=== PATIENT | male | born 1950 | race Caucasian/White ===

== ENCOUNTER → 2016-04-09 | Outpatient (CLI) | payer BC, OTHER ==
[~2016-04-09] MED LIST: ALL300 PO; AMLO-110 PO; ATOR10TA88 PO; CIPR-255 PO; FLUC200T PO; GABA-113 PO; HYDC25 PO; HYDR-3714 PO; LISI40TA PO; MELO7.5T5 PO; MULT-506 PO; PHEN-775 PO; POTA4.25 PO; TAMS0.4C38 PO; TIMO0.5S2 OPB; TRAM-10 PO
== END | disposition home or self-care (01) ==
LOC: C.RDSM 07:39
PROVIDERS: ATTEND Physical Medicine & Rehabilitation Sports Medicine
DX: M25.559 Pain in unspecified hip (principal)

== ENCOUNTER 2016-05-31 10:04 | Day surgery (SDC) | payer BC, OTHER ==
[2016-05-14 11:40] VITALS: BMI 40.0
--- NOTE | 2016-05-14 12:19 | PAT Medication Instructions ---
Service Date May 14, 2016. Current Home Medication List Allopurinol (Zyloprim *), 300 MG PO QAM Amlodipine (Norvasc), 5 MG PO QAM Atorvastatin (Lipitor), 10 MG PO QAM Fluconazole (Diflucan), 200 MG PO WK Gabapentin (Neurontin), 300 MG PO BID Hydrochlorothiazide (Hctz *), 25 MG PO QAM Hydrocodon/Acetaminophen 7.5MG/300MG (Vicodin Es (7.5MG/300MG)), 1 TAB PO BID PRN for Pain Lisinopril (Prinivil), 40 MG PO QAM Meloxicam (Mobic), 15 MG PO QAM Multivitamin (Multivitamin), 1 TAB PO QAM Potassium Citrate (Alkalinizer (Potassium Citrate ER), 10 MEQ PO QDD Timolol Gfs 0.5% Oph (Timoptic-Xe 0.5% Oph), 1 DROP OPB QAM Tramadol (Ultram), 50 MG PO Q4 PRN for Pain Medication Instructions For Your Scheduled Surgery - Hold the following medications the morning of surgery: Potassium Citrate (Alkalinizer (Potassium Citrate ER), 10 MEQ PO QDD Multivitamin (Multivitamin), 1 TAB PO QAM Meloxicam (Mobic), 15 MG PO QAM (can continue per surgeon instructions) Lisinopril (Prinivil), 40 MG PO QAM Hydrochlorothiazide (Hctz *), 25 MG PO QAM Fluconazole (Diflucan), 200 MG PO WK (can take after surgery) - Take the following medications the morning of surgery with a sip of water: Tramadol (Ultram), 50 MG PO Q4 PRN for Pain (can take up to four hours prior to surgery if needed) Hydrocodon/Acetaminophen 7.5MG/300MG (Vicodin Es (7.5MG/300MG)), 1 TAB PO BID PRN for Pain (can take up to four hours prior to surgery if needed) Gabapentin (Neurontin), 300 MG PO BID (if needed) Atorvastatin (Lipitor), 10 MG PO QAM Allopurinol (Zyloprim *), 300 MG PO QAM Amlodipine (Norvasc), 5 MG PO QAM Timolol Gfs 0.5% Oph (Timoptic-Xe 0.5% Oph), 1 DROP OPB QAM - Take the following medications as scheduled the night before surgery: Tramadol (Ultram), 50 MG PO Q4 PRN for Pain Hydrocodon/Acetaminophen 7.5MG/300MG (Vicodin Es (7.5MG/300MG)), 1 TAB PO BID PRN for Pain Gabapentin (Neurontin), 300 MG PO BID If you have any questions please call us at [phone] or [phone] ( Cindy) or [phone]
[2016-05-14 12:44] LABS: BASO % 0.5 %; BASO ABS # 0.04 K/uL (0-0.2); COMPLETE YES; EOS % 3.6 %; HEMATOCRIT 47.5 % (42-52); IG% 0.2 %; LYMPH % 30.3 %; LYMPH ABS # 2.49 K/uL (1.2-3.4); MEAN CELL VOLUME 84.2 fL (80-100); MEAN CORPUSCULAR HEMOGLOBIN 30.3 pg (25-34); MEAN PLATELET VOLUME 10.4 fL (7.4-10.4); NEUT % 53.4 %; PLATELET COUNT 240 K/uL (130-400); RED BLOOD COUNT 5.64 M/uL (4.7-6.1); WHITE BLOOD COUNT 8.22 K/uL (4.8-10.8)
[2016-05-14 13:04] LABS: URINE APPEARANCE CLEAR (CLEAR); URINE BILIRUBIN NEG (NEG); URINE COLOR YELLOW; URINE EPITHELIAL CELL AUTO 0-5 /lpf (0-5); URINE NITRITE NEG (NEG); URINE PH 5.5 (4.5-7.5); URINE SPECIFIC GRAVITY 1.011 (1.000-1.030); UROBILINOGEN NEG (NEG)
[2016-05-14 13:04] LABS: BUN/CREATININE RATIO 15.2 (10-20); CALCIUM 9.3 mg/dl (8.5-10.1); CREATININE 0.79 mg/dl (0.60-1.40); POTASSIUM 3.7 mmol/L (3.5-5.1)
[2016-05-14 13:13] LABS: MANUAL MICROSCOPIC REQUIRED? NO; REVIEW REQ? YES
[~2016-05-31] VITALS: Ht 188 cm; Wt 140.0 kg
[~2016-05-31 10:04] MED LIST changes: +ATROPINE SULFATE 0.1 MG/ML 5ML SYR IV PRN; -CIPR-255 PO; +CIPROFLOXACIN / D5W 400 MG IV SCH; +EpHEDrine SULFATE INJ 50 MG/ML AMP IV PRN; +FENTANYL CITRATE INJ 50 MCG/1 ML 2 ML VIAL IV PRN; +LACTATED RINGER'S 1000ML 1,000 ML IV SCH; +ONDANSETRON INJ 2 MG/ML 2 ML VIAL IV PRN; -PHEN-775 PO; -TAMS0.4C38 PO
[2016-05-31 10:18] VITALS: BP 158/88; PULSE 58; TEMP 36.7; O2SAT 95; Ht 188 cm; Wt 140.0 kg
[2016-05-31] MEDS ORDERED: MIDAZOLAM HCL 1 MG/ML 2ML VIAL ONE (12:19)
[2016-05-31] MEDS ORDERED: FENTANYL CITRATE INJ 50 MCG/1 ML 2 ML VIAL ONE ×2 (12:19→12:57)
--- NOTE | 2016-05-31 12:37 | History & Physical Bridge Note ---
H&P Re-Evaluation Bridge Note: I have examined the patient, reviewed the History & Physical and in the interval since the performance of the History & Physical I have noted the following changes of clinical significance: No changes noted
[2016-05-31] MEDS ORDERED: PROPOFOL IV EMULSION 10 MG/ML 20 ML VIAL IV ONE (13:06)
[2016-05-31] MEDS ORDERED: DEXAMETHASONE SOD INJ 4 MG/ML VIAL ONE (13:06)
[2016-05-31] MEDS ORDERED: ONDANSETRON INJ 2 MG/ML 2 ML VIAL ONE (13:06)
[2016-05-31] MEDS ORDERED: LARYING-O-JET KIT (LTA) EXT ONE ×2 (13:06)
[2016-05-31] MEDS ORDERED: LIDOCAINE HCL 2% 2 ML VIAL (20MG/ML) ONE (13:06)
[2016-05-31] MEDS ORDERED: SUCCINYLCHOLINE CHLORIDE 20 MG/ML 10 ML VIAL IV ONE (13:06)
--- NOTE | 2016-05-31 13:36 | [facility] Post Operative Brief Note ---
Immediate Operative Summary Operative Date May 31, 2016. Pre-Operative Diagnosis Bladder Stone Post-Operative Diagnosis Bladder Stone Procedure(s) Performed Laser Cystolithopaxy Surgeon Dr. Sandoval Valderrama Billing And Quality Technician Surgeon(s) None Estimated Blood Loss 5ml Findings Friable stone around brachyRx seed, inflamed bladder neck and prostatic urethra Specimens A. Bladder stone for analysis Cath'd urine for routine C&S Drains 18 fr silicone 10 cc Anesthesia GAET Complication(s) None Disposition Recovery Room / PACU
[2016-05-31] MEDS ORDERED: CIPR-255 PO (13:37)
[2016-05-31] MEDS ORDERED: PHEN-775 PO (13:37)
--- NOTE | 2016-05-31 13:38 | Discharge Instructions ---
Discharge Instructions Date of Service May 31, 2016. Admission Reason for Admission: Bladder Stone Discharge Discharge Diagnosis / Problem: Bladder stone s/p cystolithopaxy Discharge Goals Goal(s): Decrease discomfort, Increase independence, Therapeutic intervention Activity Recommendations Activity Limitations: resume your previous activity Lifting Limitations: gradually increase as tolerated Exercise/Sports Limitations: rest today, gradually increase as tolerated May Resume Sexual Activity: when tolerated Shower/Bathe: no limitations Driving or Machine Use: resume 1 day after discharge . Instructions / Follow-Up Instructions / Follow-Up Resume self-catheterization per previous routine Discharge Diet Recommended Diet: Regular Diet (good fluid intake) Procedures Procedures Performed: Laser Cystolithopaxy Pending Studies Studies pending at discharge: no Medical Emergencies . Who to Call and When: Medical Emergencies: If at any time you feel your situation is an emergency, please call 911 immediately. . Non-Emergent Contact Non-Emergency issues call your: Urologist Call Non-Emergent contact if: you have a fever, temperature is above 101, your pain is not controlled, your pain is worsening, your pain is unusual for you, your pain is concerning you, you have any medication questions . . "Provider Documentation" section prepared by Sandoval Valderrama. VTE Core Measure Inpt VTE Proph given/why not?: SCD's
[2016-05-31] MEDS ORDERED: PHENAZOPYRIDINE HCL 200 MG TAB PO PRN (13:45)
[2016-05-31] MEDS ORDERED: HYDROCODONE/ACETAMOPHEN 5/325MG TAB PO PRN (13:45)
--- NOTE | 2016-05-31 14:11 | Anesthesiology Progress Note ---
Anesthesia Post Op Note Date & Time May 31, 2016 at 14:10 Vital Signs Pain Intensity: 2 Vital Signs Past 12 Hours Date Time Temp Pulse Resp B/P Pulse Ox O2 Delivery O2 Flow Rate FiO2 05/31/16 14:05 36.7 60 19 145/86 94 Room Air 05/31/16 13:55 64 19 144/88 94 Room Air 05/31/16 13:45 65 16 137/82 93 Room Air 05/31/16 13:35 67 16 161/95 99 Mask 10 05/31/16 13:28 36.6 69 11 153/93 98 Mask 10 05/31/16 10:18 36.7 58 18 158/88 95 Room Air Notes Mental Status: alert / awake / arousable, participated in evaluation Pt Amnestic to Procedure: Yes Nausea / Vomiting: adequately controlled Pain: adequately controlled Airway Patency, RR, SpO2: stable & adequate BP & HR: stable & adequate Hydration State: stable & adequate Anesthetic Complications: no major complications apparent
[2016-05-31 14:14] VITALS: BP 154/74; PULSE 55; TEMP 36.5; O2SAT 96
--- NOTE | 2016-05-31 14:14 | OPERATIVE REPORT ---
DATE OF OPERATION: 05/31/2016 PREOPERATIVE DIAGNOSIS: Bladder stone around brachytherapy seeds. POSTOPERATIVE DIAGNOSIS: Same, history of bladder neck contracture. PROCEDURE: Laser cystoscopy, laser cystolitholapaxy. SURGEON: Dr. Sandoval Valderrama. HEATER ROOM HELPER: None. ANESTHESIA: General anesthesia with endotracheal intubation. COMPLICATIONS: None. FINDINGS: No residual stones after completion of the procedure, inflamed bladder neck and prostatic urethral tissue after completion. ESTIMATED BLOOD LOSS: 5 mL. COMPLICATIONS: None. DRAINS LEFT IN PLACE: Include an 18 Mozambican silicone Villalpando catheter to gravity drainage. SPECIMENS SENT TO PATHOLOGY: Stone fragments and brachytherapy seed, urine for culture and sensitivity. BRIEF HISTORY: Mr. Brown is a pleasant 65-year-old male with history of prostate cancer and bladder neck contracture who is here today due to the finding of a bladder stone, the brachytherapy seed at its center. He has been suffering from dysuria and irritative voiding symptoms due to this. He remains on a self catheterization regimen for history of bladder neck contracture. Please see H\T\P for further details. Intravenous antibiotics provided for coverage and SCDs used for DVT prophylaxis. PROCEDURE: The patient was properly identified and brought to the operative suite. After identification and appropriate consent on the chart, general anesthesia with endotracheal intubation was initiated. The patient was prepped and draped in standard fashion for this procedure. multimedia artist-out procedure was followed. A 22.5 Mozambican rigid cystoscope was passed into the bladder under direct visualization. An open area of contracture at the level of the distal prostatic urethra was noted. Open bladder neck with an open prostatic fossa was appreciated but a stone was present within the prostatic urethra within the fossa. The trigone and bladder neck were inflamed and irritated consistent with irritation from the stone. Using a 400 micron laser fiber, the stone was fragmented into smaller pieces until it was able to be grasped using a stent grasper and removed from the bladder. No evidence of bladder injury or other complication was appreciated. After this was complete, bladder was generously flushed and no evidence of any residual intravesical stone was appreciated. Of note, initial aliquot of urine was sent for culture on placement of the scope. Bladder was partially distended and cystoscope was removed. An 18 Mozambican silicone catheter was placed with return of clear irrigant. Ten mL of sterile water were placed in the balloon. Catheter was placed to gravity drainage. Anesthesia was reversed. The patient was transferred to recovery room in stable condition. FOLLOW-UP CARE: The patient will be discharged home with a short course of ciprofloxacin, Pyridium p.r.n. pain. He reports he has Vicodin at home for further discomfort. Will remove the Villalpando prior to discharge home. The patient to resume his prior CIC regimen. The patient is instructed to contact us should he note any fevers, chills, nausea, vomiting or other significant difficulties in the postoperative period. Postoperative appointment is confirmed. I attest to the content of the Intraoperative Record and any orders documented therein. Any exceptions are noted below. JOSIE
[2016-05-31 14:45] VITALS: BP 154/74; PULSE 58; O2SAT 96
[2016-05-31 15:15] VITALS: BP 162/83; PULSE 60; TEMP 36.3; O2SAT 95
== END 2016-05-31 15:44 | disposition home or self-care (01) ==
LOC: C.ACU 10:04
PROVIDERS: ATTEND Urology
DX: N21.0 Calculus in bladder (principal); N32.0 Bladder-neck obstruction; N35.9 Urethral stricture, unspecified; R31.0 Gross hematuria; Z85.46 Personal history of malignant neoplasm of prostate; E78.5 Hyperlipidemia, unspecified; M10.9 Gout, unspecified; I10 Essential (primary) hypertension; M54.16 Radiculopathy, lumbar region; M48.06 Spinal stenosis, lumbar region; E66.9 Obesity, unspecified; D12.6 Benign neoplasm of colon, unspecified

== ENCOUNTER → 2016-09-06 | Outpatient (CLI) | payer BC ==
[~2016-09-06] MED LIST changes: +ALLO300T2 PO; +ATOR10TA82 PO; -ATOR10TA88 PO; -ATROPINE SULFATE 0.1 MG/ML 5ML SYR IV PRN; +CIPR-255 PO; -CIPROFLOXACIN / D5W 400 MG IV SCH; -EpHEDrine SULFATE INJ 50 MG/ML AMP IV PRN; -FENTANYL CITRATE INJ 50 MCG/1 ML 2 ML VIAL IV PRN; +HYDR-5688 PO; +HYDR25TA4 PO; -LACTATED RINGER'S 1000ML 1,000 ML IV SCH; -ONDANSETRON INJ 2 MG/ML 2 ML VIAL IV PRN; +PREDNISONE ACETATE OPR; +TMPXEOPS OPB
[2016-09-06 10:23] LABS: BLOOD UREA NITROGEN 14 mg/dl (7-18); BUN/CREATININE RATIO 14.2 (10-20)
== END | disposition home or self-care (01) ==
LOC: C.LAB1850 09:05
PROVIDERS: ATTEND Urology
DX: Z85.46 Personal history of malignant neoplasm of prostate (principal); Z11.59 Encounter for screening for other viral diseases; R39.198 Other difficulties with micturition

== ENCOUNTER → 2016-09-25 | Outpatient (CLI) | payer BC ==
[~2016-09-25] MED LIST changes: -ALLO300T2 PO; -ATOR10TA82 PO; +ATOR10TA88 PO; -HYDR-5688 PO; -HYDR25TA4 PO; -PREDNISONE ACETATE OPR; -TMPXEOPS OPB
--- NOTE | 2016-09-25 13:25 | DIAGNOSTIC IMAGING REPORT ---
KUB CLINICAL HISTORY: Diminished urinary stream. FINDINGS: 2 AP supine abdominal radiographs are compared to study dated 05/27/2014 and correlated with abdominal CT dated 07/20/2013. There is a nonobstructed abdominal bowel gas pattern. There is no radiographic evidence of nephrolithiasis. Numerous calcified granulomas are seen in the spleen. Pelvic phleboliths are observed and there are brachytherapy seeds in the prostate gland. The skeletal structures are osteopenic. Lumbosacral spondylosis is noted. Advanced arthritic change is seen in the hips. IMPRESSION: 1. There is no radiographic evidence of nephrolithiasis. 2. Brachytherapy seeds are identified in the prostate gland. Electronically signed by: Germain Quintero M.D. 09/25/2016 1:23 PM Dictated Date/Time: 09/25/2016 1:22 PM
== END | disposition home or self-care (01) ==
LOC: C.LAB 13:06
PROVIDERS: ATTEND Urology
DX: R39.198 Other difficulties with micturition (principal); Z85.46 Personal history of malignant neoplasm of prostate

== ENCOUNTER → 2016-10-01 | Outpatient (CLI) | payer BC | END | disposition home or self-care (01) | LOC: C.RDSM 12:35 | PROVIDERS: ATTEND Physical Medicine & Rehabilitation Sports Medicine | DX: M16.0 Bilateral primary osteoarthritis of hip (principal) ==

== ENCOUNTER → 2017-02-04 | Outpatient (CLI) | payer BC ==
[~2017-02-04] MED LIST changes: +ATOR10TA82 PO; -ATOR10TA88 PO
[2017-02-04 16:50] LABS: BASO % 0.7 %; BASO ABS # 0.06 K/uL (0-0.2); COMPLETE YES; IG% 0.4 %; LYMPH % 37.2 %; LYMPH ABS # 3.14 K/uL (1.2-3.4); MEAN CELL VOLUME 86.7 fL (80-100); MEAN CORPUSCULAR HEMOGLOBIN 30.6 pg (25-34); MEAN CORPUSCULAR HGB CONC 35.3 g/dl (32-36); MEAN PLATELET VOLUME 10.2 fL (7.4-10.4); NEUT % 48.7 %; PLATELET COUNT 207 K/uL (130-400); RED BLOOD COUNT 5.65 M/uL (4.7-6.1); WHITE BLOOD COUNT 8.45 K/uL (4.8-10.8)
[2017-02-04 17:35] LABS: ALT/SGPT 31 U/L (12-78); BLOOD UREA NITROGEN 18 mg/dl (7-18); BUN/CREATININE RATIO 22.7 (10-20); CARBON DIOXIDE 27 mmol/L (21-32); CHLORIDE 105 mmol/L (98-107); CHOLESTEROL 117 mg/dl (0-200); CREATININE 0.78 mg/dl (0.60-1.40); GLUCOSE 96 mg/dl (70-99); POTASSIUM 3.5 mmol/L (3.5-5.1); SODIUM 141 mmol/L (136-145); TRIGLYCERIDES 353 mg/dl (0-150); URIC ACID 4.2 mg/dl (2.6-7.2); VERY LOW DENSITY LIPOPROT CALC 71 mg/dl
[2017-02-04 17:46] LABS: ALB/GLOB RATIO 1.1 (0.9-2); ALKALINE PHOSPHATASE 61 U/L (45-117); AST/SGOT 21 U/L (15-37); CHOLESTEROL/HDL RATIO 3.3; HDL CHOLESTEROL 36 mg/dl; LDL CHOLESTEROL CALCULATED 10 mg/dl
== END | disposition home or self-care (01) ==
LOC: C.CPL 15:41
PROVIDERS: ATTEND Surgery
DX: Z01.812 Encounter for preprocedural laboratory examination (principal); I10 Essential (primary) hypertension; M10.9 Gout, unspecified; M48.061 Spinal stenosis, lumbar region without neurogenic claudication; E78.5 Hyperlipidemia, unspecified; K40.90 Unilateral inguinal hernia, without obstruction or gangrene, not specified as recurrent; R94.31 Abnormal electrocardiogram [ECG] [EKG]

== ENCOUNTER → 2017-04-01 | Outpatient (CLI) | payer BC ==
[~2017-04-01] MED LIST changes: -ALL300 PO; +ALLO300T2 PO; -CIPR-255 PO; -FLUC200T PO; -GABA-113 PO; -HYDC25 PO; -HYDR-3714 PO; +HYDR25TA4 PO; +PREDNISONE ACETATE OPR; -TIMO0.5S2 OPB; +TMPXEOPS OPB
--- NOTE | 2017-04-01 11:09 | DIAGNOSTIC IMAGING REPORT ---
KUB CLINICAL HISTORY: I10 [id number] Incomplete emptying of [id number] COMPARISON STUDY: 09/25/2016 FINDINGS: 5 mm calcification overlying lower pole right kidney possibly present on the prior study. Renal and psoas shows otherwise are unremarkable. Nonobstructive bowel pattern. Postprocedural changes consistent with radioactive seed implants to the prosthetic bed unchanged. Nonobstructive bowel pattern. Degenerative osseous changes throughout. IMPRESSION: 1. Unchanging 5 mm calcification lower pole right kidney. 2. Otherwise negative study. 3. Nonobstructive bowel pattern. 4. Stable degenerative changes of the osseous structures throughout. The above report was generated using voice recognition software. It may contain grammatical, syntax or spelling errors. Electronically signed by: Dong Roberts M.D. 04/01/2017 11:07 AM Dictated Date/Time: 04/01/2017 11:03 AM
== END | disposition home or self-care (01) ==
LOC: C.RAD 10:43
PROVIDERS: ATTEND Urology
DX: N20.0 Calculus of kidney (principal); I10 Essential (primary) hypertension; R33.9 Retention of urine, unspecified

== ENCOUNTER → 2017-04-01 | Outpatient (CLI) | payer BC | END | disposition home or self-care (01) | LOC: C.RDSM 09:57 | PROVIDERS: ATTEND Physical Medicine & Rehabilitation Sports Medicine | DX: Z96.653 Presence of artificial knee joint, bilateral (principal); M16.0 Bilateral primary osteoarthritis of hip ==

== ENCOUNTER → 2017-11-05 | Day surgery (SDC) | payer BC ==
[2017-10-29 12:36] VITALS: BMI 38.0
--- NOTE | 2017-10-29 15:23 | PAT Medication Instructions ---
Service Date Oct 29, 2017. Current Home Medication List Allopurinol (Zyloprim), 300 MG PO QAM Amlodipine (Norvasc), 5 MG PO QAM Atorvastatin (Lipitor), 10 MG PO QAM Dorzolamide Hcl (Trusopt Oph), 1 DROPS OPR TID Hydrochlorothiazide (Hctz), 25 MG PO QAM Lisinopril (Prinivil), 40 MG PO QAM Meloxicam (Mobic), 15 MG PO QAM Multivitamin (Multivitamin), 1 TAB PO QAM Potassium Citrate (Alkalinizer (Potassium Citrate ER), 10 MEQ PO BID Timolol Maleate (Timolol Gfs 0.5% (Generic For Timoptic-Xe)), 1 DROP OPB BID Tramadol (Ultram), 50 MG PO UD PRN for Pain Medication Instructions For Your Scheduled Surgery - Check with surgeon for instructions: Meloxicam (Mobic), 15 MG PO QAM - Hold the following medications the morning of surgery: Potassium Citrate (Alkalinizer (Potassium Citrate ER), 10 MEQ PO BID Multivitamin (Multivitamin), 1 TAB PO QAM Hydrochlorothiazide (Hctz), 25 MG PO QAM Lisinopril (Prinivil), 40 MG PO QAM - Take the following medications the morning of surgery with a sip of water: Allopurinol (Zyloprim), 300 MG PO QAM Amlodipine (Norvasc), 5 MG PO QAM Atorvastatin (Lipitor), 10 MG PO QAM Dorzolamide Hcl (Trusopt Oph), 1 DROPS OPR TID Timolol Maleate (Timolol Gfs 0.5% (Generic For Timoptic-Xe)), 1 DROP OPB BID Tramadol (Ultram), 50 MG PO UD PRN for Pain (okay to take up to 4 hours prior to surgery if needed) - Take the following medications as scheduled the night before surgery: Tramadol (Ultram), 50 MG PO UD PRN for Pain (if needed) Potassium Citrate (Alkalinizer (Potassium Citrate ER), 10 MEQ PO BID Timolol Maleate (Timolol Gfs 0.5% (Generic For Timoptic-Xe)), 1 DROP OPB BID Dorzolamide Hcl (Trusopt Oph), 1 DROPS OPR TID If you have any questions please call us at [phone] or [phone] or [phone]
[2017-10-30 11:27] VITALS: BMI 40.0
[2017-10-30 12:23] LABS: CALCIUM 9.6 mg/dl (8.5-10.1); CREATININE 0.92 mg/dl (0.60-1.40)
[2017-10-30 12:24] LABS: BASO % 0.7 %; BASO ABS # 0.06 K/uL (0-0.2); EOS % 3.6 %; EOS ABS # 0.29 K/uL (0-0.5); HEMOGLOBIN 17.2 g/dL (14.0-18.0); IG# 0.03 K/uL (0.00-0.02); LYMPH % 29.5 %; LYMPH ABS # 2.39 K/uL (1.2-3.4); MEAN CELL VOLUME 88.4 fL (80-100); MEAN CORPUSCULAR HEMOGLOBIN 31.7 pg (25-34); MEAN CORPUSCULAR HGB CONC 35.8 g/dl (32-36); MEAN PLATELET VOLUME 10.2 fL (7.4-10.4); MONO ABS # 1.05 K/uL (0.11-0.59); NEUT % 52.8 %; NEUT ABS # 4.28 K/uL (1.4-6.5); PLATELET COUNT 194 K/uL (130-400); RED CELL DISTRIBUTION WIDTH CV 13.9 % (11.5-14.5); RED CELL DISTRIBUTION WIDTH SD 44.5 fL (36.4-46.3)
--- NOTE | 2017-10-30 12:29 | DIAGNOSTIC IMAGING REPORT ---
TWO VIEW CHEST CLINICAL HISTORY: Preoperative examination. FINDINGS: PA and lateral chest radiographs are compared to study dated 08/05/1715. The heart is top normal for projection. The mediastinal contour is within normal limits. A large calcified granuloma in the right midlung is unchanged. Chronic interstitial thickening similar to previous. There is mild bibasilar atelectasis. No airspace consolidation or pleural effusion is identified. There is no pneumothorax. The bony thorax appears intact. Degenerative change is noted in the thoracic spine. IMPRESSION: No active disease in the chest. Electronically signed by: Germain Quintero M.D. 10/30/2017 12:27 PM Dictated Date/Time: 10/30/2017 12:26 PM
--- NOTE | 2017-10-30 12:35 | DIAGNOSTIC IMAGING REPORT ---
KUB HISTORY: Preop. COMPARISON: KUB 04/01/2017. FINDINGS: The bowel gas pattern is unremarkable. There are no dilated loops of small bowel to suggest an obstruction. No change in the 7 mm stone within the lower pole of the right kidney. No ureteral calculi identified. Multiple brachytherapy seeds seen at the prostate gland. There are few pelvic phleboliths, unchanged. Moderate osteoarthritis within the bilateral hips. No left renal calculi. No ureteral calculi. Multiple calcified splenic granulomas. No pneumoperitoneum or pneumatosis. IMPRESSION: Stable 7 mm right renal stone. No ureteral calculi. Electronically signed by: Finn Mcdowell M.D. 10/30/2017 12:33 PM Dictated Date/Time: 10/30/2017 12:31 PM
[~2017-11-05] VITALS: Ht 190.5 cm; Wt 146.1 kg
[~2017-11-05] MED LIST changes: -AMLO-110 PO; +AMLO5TAB3 PO; +ATROPINE SULFATE 0.1 MG/ML 5ML SYR IV PRN; +BELLADONNA/OPIUM SUPP 60 MG SUPP PR ONE; +CIPROFLOXACIN / D5W 400 MG IV SCH; +DEXAMETHASONE SOD INJ 4 MG/ML VIAL ONE; +DORZ2SOL19 OPR; +EpHEDrine SULFATE INJ 50 MG/ML AMP IV PRN; +FENTANYL CITRATE INJ 50 MCG/1 ML 2 ML VIAL IV PRN; +FENTANYL CITRATE INJ 50 MCG/1 ML 2 ML VIAL ONE; +HYDR-3419 PO; +HYDROCODONE/ACETAMIN 5/325MG TAB PO PRN; +KETOROLAC TROMETHAMINE 30 MG/ML VIAL ONE; +LACTATED RINGER'S 1000ML 1,000 ML IV SCH; +LIDOCAINE HCL 2% 2 ML VIAL (20MG/ML) ONE; +MIDAZOLAM HCL 1 MG/ML 2ML VIAL ONE; +ONDANSETRON INJ 2 MG/ML 2 ML VIAL IV PRN; +ONDANSETRON INJ 2 MG/ML 2 ML VIAL ONE; +PHEN-775 PO; +PHENAZOPYRIDINE HCL 200 MG TAB PO PRN; -PREDNISONE ACETATE OPR; +PROPOFOL IV EMULSION 10 MG/ML 20 ML VIAL ONE; +SULF1TAB92 PO
[2017-11-05 07:44] VITALS: BP 155/90; PULSE 51; TEMP 36.7; O2SAT 94; Ht 190.5 cm; Wt 146.1 kg
--- NOTE | 2017-11-05 08:20 | Discharge Instructions ---
Discharge Instructions Date of Service Nov 05, 2017. Admission Reason for Admission: Bladder Stone, Urethral Stricture Discharge Discharge Diagnosis / Problem: Prostatic stenosis with bladder stone Discharge Goals Goal(s): Decrease discomfort, Improve function, Therapeutic intervention Activity Recommendations Activity Limitations: as noted below Lifting Limitations: no more than 25 pounds, gradually increase as tolerated Exercise/Sports Limitations: rest today, gradually increase as tolerated May Resume Sexual Activity: after two weeks Shower/Bathe: tomorrow (no tub bath with pineda in place) . Instructions / Follow-Up Instructions / Follow-Up Follow-up in office as scheduled for removal of pineda and postoperative check. Complete Bactrim Current Hospital Diet Patient's current hospital diet: Discharge Diet Recommended Diet: Regular Diet (good fluid intake) Procedures Procedures Performed: Cystoscopy, extraction of bladder calculus, transurethral incision of prostate with fulguration of prostatic bleeders. Pending Studies Studies pending at discharge: yes List of pending studies: Bladder stone for chemical analysis Medical Emergencies . Who to Call and When: Medical Emergencies: If at any time you feel your situation is an emergency, please call 911 immediately. . Non-Emergent Contact Non-Emergency issues call your: Urologist Call Non-Emergent contact if: you have a fever, temperature is above 101, your pain is not controlled, your pain is worsening, your pain is unusual for you, your pain is concerning you, you have any medication questions . . "Provider Documentation" section prepared by Sandoval Valderrama. . [place] Drug Monitoring Program Search Results: patient reviewed within database, no issues identified (last Rx Feb 2017)
--- NOTE | 2017-11-05 08:49 | [facility] Operative Report ---
Operative Report Operative Date Nov 05, 2017. Pre-Operative Diagnosis Bladder stone & uretheral constricture Post-Operative Diagnosis Bladder stone & uretheral constricture Procedure(s) Performed Cystoscopy; extraction of foreign object, bladder stone; transurethral incision prostate, fulguration of prostatic bleeders. Surgeon Dr. Bright Valderrama Set Illustrator Surgeon(s) none Estimated Blood Loss 5mL Findings Small, mobile stone within the bladder able to be grasped, crushed and removed using stent grasper, recurrent stenotic prostate incised at the 5 and 7 o'clock position. Specimens A: bladder stone for chemical analysis Drains 20 [place]cu[place]orean silicone with 15 cc of sterile water in the balloon Anesthesia Type General Complication(s) none Disposition no Recovery Room / PACU Indications Pleasant 66-year-old male with a history of recurrent symptoms consistent with previous bladder stone found to have stricture bladder stone on office cystoscopy. Please see office note and H&P for further details. Intravenous ciprofloxacin provided for antibiotic coverage today and SCDs used for DVT prophylaxis. Description of Procedure Patient was properly identified and brought into the operative suite after identification of appropriate consent in the chart. General anesthesia with laryngeal mask was initiated and patient was prepped and draped in the standard fashion for this procedure. Full timeout procedure was followed. 22 Ecu[place]orean rigid cystoscope was passed to the bladder and able to be navigated with some tightness through the stenotic area of the prostate. Bladder was surveyed in its entirety demonstrating mild bullous edema with no clear tumors, papillary mucosa are erythematous areas within the bladder. A mobile sub-centimeter bladder stone was identified, large enough to preclude passage through the stenotic area of the prostate. This was grasped and crushed using stent graspers with international sales representative samples being sent for chemical analysis. Bladder was again evaluated and noted to be free of any residual stones or abnormalities. Ureteral orifices were noted to be in the normal anatomic location, effluxing clear urine well removed from the bladder neck. Some bleeding was present from the area of the prostate gland with associated stenosis so decision was made to excise this area. Bipolar resectoscope with Sam knife was introduced with a visual obturator and relaxing incisions were made at the 5 and 7 o'clock position. Fulguration at the level of the prostate was performed using the Sam knife on coagulation settings with improved hemostasis. Bladder was partially distended and resectoscope was removed. 20 [place]cu[place] silicone Villalpando was placed with 15 cc of sterile water in the balloon. Belladonna and opium suppository was provided for additional postoperative analgesia. Anesthesia was reversed and patient was transferred to the recovery room in stable condition. Follow-up instructions: Patient will be discharged home with a Villalpando catheter in place. Outpatient trial of void and follow-up appointments as scheduled. Prescription for Pyridium and Vicodin provided for postoperative analgesia. Patient to include his course of Bactrim as previously prescribed. Patient is to contact us should he note any fevers, chills, nausea, vomiting or other difficulties in the postoperative period. I attest to the content of the Intraoperative Record and any orders documented therein. Any exceptions are noted below.
--- NOTE | 2017-11-05 09:30 | Anesthesiology Progress Note ---
Anesthesia Post Op Note Date & Time Nov 05, 2017 at 09:29 Vital Signs Pain Intensity: 0 Vital Signs Past 12 Hours Date Time Temp Pulse Resp B/P (MAP) Pulse Ox O2 Delivery O2 Flow Rate FiO2 11/05/17 09:25 55 15 159/92 95 Room Air 10 11/05/17 09:15 56 18 157/93 93 Room Air 10 11/05/17 09:05 60 20 175/95 97 Oxymask 10 11/05/17 08:56 36.5 67 15 178/110 95 Oxymask 10 11/05/17 07:44 36.7 51 20 155/90 (111) 94 Room Air Notes Mental Status: alert / awake / arousable, participated in evaluation Pt Amnestic to Procedure: Yes Nausea / Vomiting: adequately controlled Pain: adequately controlled Airway Patency, RR, SpO2: stable & adequate BP & HR: stable & adequate Hydration State: stable & adequate Anesthetic Complications: no major complications apparent
[2017-11-05 10:00] VITALS: BP 156/88; PULSE 52; TEMP 36.4; O2SAT 94
[2017-11-05 10:30] VITALS: BP 162/89; PULSE 57; O2SAT 95
[2017-11-05 10:51] VITALS: BP 166/86; PULSE 58; TEMP 36.5; O2SAT 94
== END | disposition home or self-care (01) ==
LOC: C.ACU 07:10
PROVIDERS: ATTEND Urology
DX: N21.0 Calculus in bladder (principal); N35.9 Urethral stricture, unspecified

== ENCOUNTER 2018-10-30 06:25 | Observation (INO) ==
[2018-10-30] MEDS ORDERED: LIDOCAINE HCL 1% 20 ML VIAL ONE ×2 (07:15→08:17)
[2018-10-30] MEDS ORDERED: MIDAZOLAM HCL 5 MG/ML 1 ML VIAL ONE ×5 (07:44→10:04)
[2018-10-30] MEDS ORDERED: fentaNYL citrate 100 MCG/2 ML VIAL ONE ×5 (07:44→09:49)
--- NOTE | 2018-10-30 07:51 | History & Physical Report ---
Date of Service October 30, 2018 Assessment & Plan (1) Atrial flutter: PLan EPS/ablation. Present on Admission?: No History of Present Illness Chief Complaint: Palpitaitons Primary Care Provider: Zoie Chaney PA-C Patient with a documented history of atrial flutter presents for ablation. Still having occasional and brief episodes of palpitations and high heart rates. Allergies Allergy/AdvReac Type Severity Reaction Status Date / Time oxycodone AdvReac Mild N/V Verified 10/24/18 13:09 benzalkonium chloride AdvReac Unknown REDNESS -- Verified 10/24/18 13:09 PT UNAWARE bimatoprost AdvReac Unknown REDNESS Verified 10/24/18 13:09 Home Medications Home Medications Medication Instructions Recorded Confirmed Type allopurinol 300 mg PO QAM 02/18/18 10/30/18 History amlodipine 5 mg PO QAM 02/18/18 10/30/18 History atorvastatin 10 mg PO QAM 02/18/18 10/30/18 History dorzolamide 1 drp OPR TID 02/18/18 10/30/18 History gabapentin 300 mg PO BID 02/18/18 10/30/18 History hydrochlorothiazide 25 mg PO QAM 02/18/18 10/30/18 History potassium citrate 10 meq PO BID 02/18/18 10/24/18 History timolol 1 drp OPHTHALMIC (EYE) BID 02/18/18 10/24/18 History lisinopril 40 mg tablet 40 mg PO QAM #90 tab 09/10/18 10/24/18 Rx acetaminophen 500 mg tablet 1,000 mg PO TID PRN #90 tab 10/16/18 10/30/18 History apixaban 5 mg tablet 5 mg PO BID 10/16/18 10/30/18 History tramadol 50 mg tablet 50 - 100 mg PO HS PRN #30 tab 10/16/18 10/24/18 Rx timolol 1 drp OPHTHALMIC (EYE) BID 10/30/18 10/30/18 History Past Med/Surg History Medical History Urethral stricture Tubular adenoma of colon Obesity, Class II, BMI 35-39.9 Nephrolithiasis Male stress incontinence Lumbar spinal stenosis Lumbar radiculopathy Incomplete emptying of bladder Hyperglycemia Gout, joint Dyslipidemia Clot retention of urine Cataract Bladder neck contracture Bladder calculus Chronic back pain Degenerative disc disease Glaucoma Gout History of brachytherapy ~2012 FOR PROSTATE CANCER Hyperlipidemia Hypertension Obesity (BMI 35.0-39.9 without comorbidity) Osteoarthritis Prostate cancer Surgical History H/O eye surgery CORNEAL SCRAPING OF RIGHT EYE History of anesthesia reaction UNSUCCESSFUL SPINAL BLOCK FOR KNEE REPLACEMENT SURGERY History of carpal tunnel release RT WRIST. 02/25/2018. MAC no issues. History of cataract surgery History of colonoscopy History of cystoscopy FOR BLADDER NECK SCARRING History of herniorrhaphy INGUINAL (RIGHT) History of repair of rotator cuff RIGHT History of total knee replacement BILATERAL Family History Unknown Cancer Heart disease Hypertension Mother In good health Father In good health Social History Preferred Language: Surinamese Communication Ability: Effective Expanding Machine Operator Required: No Beliefs That Will Affect Care: None Current Living Situation: Spouse Other Information That Helps Us Care for You: No Feels Safe at Home: Yes Safety Concerns: Feels Safe At This Time Smoking Status: Never smoker Second Hand Exposure: No ; Hx Alcohol Use: No Hx Substance Use: No Review of Systems Review of Systems: Per HPI Physical Exam Physical Exam: Alert. Answered questions appropriately Lungs clear. Normal respiratory effort Cadiac: Regular rate. No edema Results & Data Vital Signs (Past 12 Hours) Vital Signs Temp Pulse Resp BP Pulse Ox 10/30/18 06:54 36.8 C 52 L 16 145/84 H 95
--- NOTE | 2018-10-30 07:52 | Pre Anesthesia Assessment ---
Date of Service October 30, 2018 Pre Sedation Assessment Vital Signs Temp Pulse Resp BP Pulse Ox 10/30/18 06:54 36.8 C 52 L 16 145/84 H 95 Cardiovascular + regular rate Respiratory + respiratory effort normal Pre-Sedation Airway Assessment Smoking Status: Never smoker Hx Sleep Apnea: No Short, Thick Neck: No Oral Cavity: + Dentures Mallampati Class: II ASA: ASA3 NPO Status Date of Last Intake of Fluids: 10/29/18 Time of Last Intake of Fluids: 20:00 Date of Last Intake of Solid Food: 10/29/18 Time of Last Intake of Solid Foods: 20:00 Procedure Planning Contraindications for Sedation: none Current Medications Reviewed: Yes Notes The planned sedation has been discussed with the patient. Informed Consent was obtained. I have identified the patient, determined the appropriateness of sedation and have assessed the patient immediately prior to the procedure. All medicine(s) and interventions are by my order.
[2018-10-30] MEDS ORDERED: ISOPROTERENOL HCL 0.2 MG/ML 5 ML AMP IV ONE (08:19)
[2018-10-30] MEDS ORDERED: HEPARIN SOD (PORCINE) 1000 UNIT/ML 10 ML VIAL ONE (08:49)
[2018-10-30] MEDS ORDERED: MoRPHine SULFATE 2 MG/ML CARP IV PRN (10:36)
[2018-10-30] MEDS ORDERED: ACETAMINOPHEN 325 MG TAB PO PRN (10:36)
--- NOTE | 2018-10-30 10:36 | Post Operative Brief Note ---
Cardiology Brief Post Op Date of Surgery October 30, 2018 Pre & Post Diagnosis Operation Date: 10/30/18 08:00 <No data on this case meets the specified criteria> Procedure RIght atrial isthmus ablation. NO inducible atrial flutter. Access via right femoral vein Counseling Case Manager Zachary Ortiz MD Microbiology Coordinator none Estimated Blood Loss 10 Findings See Below Creation of bidirectinal block through the cavo-tricuspid isthmus. No inducible AFL Complications none Disposition Accompanied Patient To Recovery: No Disposition: PCU Overlapping Procedure I was immediately available: during the entire case.
--- NOTE | 2018-10-30 10:36 | Post Anesthesia Assessment ---
Date of Service October 30, 2018 Post Sedation Assessment Vital Signs Temp Pulse Resp BP Pulse Ox 10/30/18 06:54 36.8 C 52 L 16 145/84 H 95 Recovery Score Respiration: Deep Breath/Cough Consciousness: Arouseable (by name) Oxygen Saturation: O2 needed for >90% Post Sedation Plan On clinical assessment, the patient appears to have tolerated the sedation without complications. Patient is recovering as anticipated. Patient will continue to be monitored by nursing and may be discharged when sedation discharge criteria are met per below protocol. Upon Completions of procedure and additional 15 minutes continue every 5 minute vital signs and the P.A.R. score; then discharge to a Phase I or Fast Track to Phase II per the following guidelines: * Discharge Patient to appropriate Phase II area if PAR is 8 or greater or return to pre- procedure baseline. The post - procedure orders will be as directed. * If PAR score is less than 8 or not return to pre-procedure baseline then patient will follow Phase I monitoring till PAR is reached for Phase II. The Phase I may be done in procedure room or may call to secure a Phase I area. * If naloxone or flumazenil are used for reversal, hold in Phase I for continued monitoring from when last reversal dose was given for a minimum of 60 minutes or longer pending the nurse and/or physician discretion of patient condition before discharge to Phase II. Please call the Sedation Physician to re-evaluate and complete post-note for discharge to Phase II area. Do NOT discharge from procedure sedation or Phase 1 until post- sedation evaluation note is complete by procedure /sedation MD Sedation Discharge Instructions to be given to the patient at discharge to home.
--- NOTE | 2018-10-30 16:25 | Procedure Note ---
Procedure Note Date of Service October 30, 2018 Note Procedure performed: Complete electrophysiologic testing including pacing from left atrium via the coronary sinus. Ablation of supraventricular tachycardia, mapping of tachycardia sites using three-dimensional electro anatomical mapping, arrhythmia induction The patient was informed of the risks benefits and alternatives to the intended procedure. He understood such which proceed. He is brought to the electrophysiology suite in a fasting state. Conscious sedation was administered per protocol and the patient was monitored electrocardiographically throughout today's procedure. The right groin was prepped and draped in usual sterile fashion. The right femoral artery was accessed 3 times using modified standard technique. The sheaths were used to facilitate passage of the EP catheters to the respective chambers under fluoroscopic guidance. This included right ventricular, coronary sinus and ablation catheter. The patient's baseline conduction system was characterized. Attempts to induce atrial flutter within performed. Electro anatomical mapping was then performed and ablation performed through the caval tricuspid isthmus. Repeat electrophysiologic testing as well as three-dimensional electroanatomical mapping was performed in order to confirm bidirectional block in the caval tricuspid isthmus. Subsequent to ablation the patient's baseline conduction intervals were again measured. Repeat electrophysiologic testing and arrhythmia induction was then performed on and off isoproterenol prior to conclusion of the case. At the conclusion of the procedure the sheaths and catheters were removed. Hemostasis was achieved at the access sites using manual pressure. Patient tolerated the procedure well there were no immediate complications. Findings: Baseline intracardiac intervals Cycle length in the atrium 1060 milliseconds Cycle length in the ventricle 1072 milliseconds DE interval 206 milliseconds QRS duration 102 milliseconds QT interval 408 milliseconds Corrected QT interval 422 milliseconds AH interval 160 milliseconds HV interval 70 milliseconds Av Wenckebach occurred at 380 milliseconds AV node effective refractory period was 250 milliseconds Ablation: Radiofrequency ablation was carried out and a power limited mode using an irrigated catheter. Lesions were placed in a linear fashion to the cava tricuspid isthmus until bidirectional block was achieved. Subsequent to ablation burst atrial pacing from both the medial and lateral portions of the caval tricuspid isthmus were performed in order to induce any arrhythmia. No in arrhythmia was inducible with the exception of a brief run of atrial fibrillation. Post ablation intervals: Cycling in the atrium 1044 milliseconds Cycling in the ventricle 1040 milliseconds DE interval 212 milliseconds QRS interval 112 milliseconds QT interval 422 milliseconds QT see 412 milliseconds AH interval 112 milliseconds HV interval 60 milliseconds Av Wenckebach 470 milliseconds Conclusions: Slightly prolonged HV interval at baseline the conclusion of the case No evidence assess Re pathway conduction Occasional echo beats with program stimulation from the atrium, but no inducible tachycardia Successful creation of bidirectional block through the caval tricuspid isthmus without inducible atrial flutter Coding
--- NOTE | 2018-11-13 15:41 | Discharge Summary ---
Date of Service November 13, 2018 Admission HPI Per Admitting Provider Patient with a documented history of atrial flutter presents for ablation. Still having occasional and brief episodes of palpitations and high heart rates. Principal Diagnosis 1 Discharge Exam Groin access site without hematoma or bleeding Discharge Data Allergies Allergy/AdvReac Type Severity Reaction Status Date / Time oxycodone AdvReac Mild N/V Verified 10/24/18 13:09 benzalkonium chloride AdvReac Unknown REDNESS -- Verified 10/24/18 13:09 PT UNAWARE bimatoprost AdvReac Unknown REDNESS Verified 10/24/18 13:09 Procedures Performed Operation Date: 10/30/18 08:00 Actual Procedures p EPS + Ablation for SVT Flutter - Sebastian Ortiz MD s 3D Mapping (Carto) - Sebastian Ortiz MD Ordered Studies 10/30/18 07:30 EP Lab Images for PACS ONCE Hospital Course (1) Atrial flutter: PLan EPS/ablation. He arrived. He underwent ablation. He went home. Total Time Total Time Spent Total Time Spent (In Minutes): 2 Discharge Plan Discharge Items Patient Disposition: Home - Self-Care Reason For Visit: Atrial Flutter Discharge Diagnosis: Atrial Flutter Discharge Goals: Therapeutic intervention Activity: Per 'Additional Instructions' section Activity Comment: No lifting greater than 10 pounds or strenuous activity for 5- 7 days Lifting: No more than 10 pounds Bathing: No limitations Driving/Machine Use: Resume 1 day after discharge Non-emergency contact: Evaporator Helper Call non-emergency contact if: you have any medication questions Follow-up/Referrals: Zoie Chaney PA-C [Primary Care Provider] - Diet: Heart Healthy Addtl Provider Instructions: Resume Eliquis tomorrow morning Prescriptions: Continued lisinopril 40 mg tablet 40 mg PO QAM Qty: 90 RF: 3 tramadol 50 mg tablet 50 - 100 mg PO HS PRN (Reason: Pain) Qty: 30 RF: 1 potassium citrate 10 mEq (1,080 mg) tablet extended release 10 meq PO BID 90 Days Qty: 180 RF: 0 Eliquis 5 mg tablet 5 mg PO BID RF: 0 acetaminophen 500 mg tablet 1,000 mg PO TID PRN (Reason: Pain, Mild) Qty: 90 RF: 0 timolol 0.25 % Drops 1 drp OPHTHALMIC (EYE) BID RF: 0 gabapentin 300 mg Capsule 300 mg PO BID RF: 0 atorvastatin 10 mg Tablet 10 mg PO QAM RF: 0 amlodipine 5 mg Tablet 5 mg PO QAM RF: 0 timolol 0.5 % Drops 1 drp OPHTHALMIC (EYE) BID RF: 0 allopurinol 300 mg Tablet 300 mg PO QAM RF: 0 hydrochlorothiazide 25 mg Tablet 25 mg PO QAM RF: 0 dorzolamide 2 % Drops 1 drp OPR TID RF: 0 Stand-Alone Forms: [facility] Discharge Orders: Discharge Order (Routine); Ordered 10/30/18 Ordered By: Sebastian Ortiz Admission Data Admit Date/Time: 10/30/18 09:26 Attending Provider: Sebastian Ortiz Admit Provider: Sebastian Ortiz Primary Care Provider: Zoie Chaney Service: Surgical Services Other Interventions: Discharge Summary Assessment (RN) Last Done: 10/30/18 16:33 DC Date/Time DO NOT enter until pt leaves facility: 10/30/18 17:00
== END 2018-10-30 17:00 | disposition home or self-care (01) ==
LOC: 2S 06:25 → ASU 06:25

== ENCOUNTER 2020-06-01 05:24 | Observation (INO) ==
--- NOTE | 2020-05-06 11:38 | PAT Medication Instructions ---
Medication Instructions Date of Service May 06, 2020 Home Medications Medication Instructions Recorded hydrochlorothiazide 25 mg tablet 25 mg PO QAM #90 tab 05/12/19 allopurinol 300 mg tablet 300 mg PO QAM #90 tab 06/08/19 amlodipine 5 mg tablet 5 mg PO QAM #90 tab 07/14/19 atorvastatin 10 mg tablet 10 mg PO QAM #90 tab 07/14/19 tramadol 50 mg tablet 50 mg PO HS PRN #30 tab 08/20/19 lisinopril 40 mg tablet 40 mg PO QAM #90 tab 09/07/19 gabapentin 300 mg capsule 300 mg PO BID #180 cap 01/18/20 acetaminophen 500 mg tablet 1,000 mg PO TID PRN hydrochlorothiazide 25 mg tablet 25 mg PO QAM allopurinol 300 mg tablet 300 mg PO QAM amlodipine 5 mg tablet 5 mg PO QAM atorvastatin 10 mg tablet 10 mg PO QAM tramadol 50 mg tablet 50 mg PO HS PRN lisinopril 40 mg tablet 40 mg PO QAM gabapentin 300 mg capsule 300 mg PO BID meloxicam 7.5 mg PO QAM dorzolamide-timolol 1 drp OPB BID potassium citrate 1,080 mg PO QAM ASK your surgeon for instructions meloxicam 7.5 mg PO QAM DO NOT take the morning of surgery hydrochlorothiazide 25 mg tablet 25 mg PO QAM lisinopril 40 mg tablet 40 mg PO QAM potassium citrate 1,080 mg PO QAM Take morning of surgery With a small sip of water, OTHERWISE NOTHING TO EAT OR DRINK AFTER MIDNIGHT: acetaminophen 500 mg tablet 1,000 mg PO TID PRN (if needed, may be taken up to four hours before surgery) allopurinol 300 mg tablet 300 mg PO QAM amlodipine 5 mg tablet 5 mg PO QAM atorvastatin 10 mg tablet 10 mg PO QAM gabapentin 300 mg capsule 300 mg PO BID dorzolamide-timolol 1 drp OPB BID Take evening before surgery acetaminophen 500 mg tablet 1,000 mg PO TID PRN (if needed) tramadol 50 mg tablet 50 mg PO HS PRN (if needed) gabapentin 300 mg capsule 300 mg PO BID dorzolamide-timolol 1 drp OPB BID Other Notes If you have any questions please call us at [phone] or [phone] or [phone] or [phone]
--- NOTE | 2020-05-09 10:47 | Anesthesiology Consultation ---
Date of Service May 09, 2020 Assessment & Plan (1) Encounter for pre-operative examination: COVID Status: As of 05/09 assessment, patient denies travel to endemic area, known exposure/sick contacts, or symptoms of COVID19. Patient instructed that they and their household members must follow strict social distancing guidelines, wear a mask in public and avoid travel/events/gatherings for 14 days prior to surgery. Preoperative COVID19 testing to be completed prior to surgery per surgeon's arrangements. Patient made aware to self-isolate as much as possible between COVID testing and surgery. Per 2012 anesthesia record, [address] epidural. Ultimately had GA. Patient recalls very painful experience with attempted epidural placement, and would prefer to have general anesthesia for CATHY. He has discussed this with Dr. Garza. Chart Review Chart Review: Acceptable Risk for Surgery (pending surgeon-ordered pcp clearance 05/26) and Patient seen in Pre Admission Testing Teaching & Discussion Instructed NPO after midnight before surgery, except medications with 15 cc of water. Medication instructions provided according to the PAT guidelines. History Surgery Operation Date: 06/01/20 08:50 Proposed Procedures p Left Total Hip Arthroplasty Dual Mobility - Herrera Garza MD Height/Weight Height: 6 ft 2 in Weight: 146 kg Allergies Allergy/AdvReac Type Severity Reaction Status Date / Time benzalkonium chloride AdvReac Intermediate REDNESS Verified 04/21/20 12:12 bimatoprost AdvReac Intermediate REDNESS Verified 04/21/20 12:12 oxycodone AdvReac Mild N/V Verified 04/21/20 12:12 Medications Home Medications Medication Instructions Recorded Confirmed Last Taken acetaminophen 500 mg tablet 1,000 mg PO TID PRN #90 tab 10/16/18 04/21/20 01/31/20 hydrochlorothiazide 25 mg tablet 25 mg PO QAM #90 tab 05/12/19 04/21/20 01/31/20 allopurinol 300 mg tablet 300 mg PO QAM #90 tab 06/08/19 04/21/20 02/01/20 07:30 amlodipine 5 mg tablet 5 mg PO QAM #90 tab 07/14/19 04/21/20 02/01/20 07:30 atorvastatin 10 mg tablet 10 mg PO QAM #90 tab 07/14/19 04/21/20 02/01/20 07:30 tramadol 50 mg tablet 50 mg PO HS PRN #30 tab 08/20/19 04/21/20 Unknown lisinopril 40 mg tablet 40 mg PO QAM #90 tab 09/07/19 04/21/20 02/01/20 07:30 gabapentin 300 mg capsule 300 mg PO BID #180 cap 01/18/20 04/21/20 02/01/20 07:30 meloxicam 7.5 mg PO QAM 01/21/20 04/21/20 01/31/20 dorzolamide-timolol 1 drp OPB BID 04/21/20 04/21/20 Unknown potassium citrate 1,080 mg PO QAM 04/21/20 04/21/20 Unknown Past Medical History Medical History Dyslipidemia Glaucoma History of prostate cancer Hx of atrial flutter s/p ablation 10/2018 [facility]. Hx of gout Hypertension Kidney stone Lumbar radiculopathy Lumbar spinal stenosis Male stress incontinence Morbid obesity Urethral stricture SELF CATH X 1 PER WEEK (PER PATIENT) PLEASE USE 14G CATHETER IF REQUIRED Exercise / Class Metabolic Activity II 4-5 Yardwork/Stairs/Walk up hill (Denies CP or SOB with 1 FOS) Past Family History Family History Unknown Heart disease Cancer Hypertension Mother In good health Lung cancer Father In good health Other No family history of adverse response to anesthesia Denies family history of Ovarian cancer Prostate cancer Breast cancer Colorectal cancer Past Surgical History Surgical History H/O eye surgery CORNEAL SCRAPING OF RIGHT EYE History of anesthesia reaction UNSUCCESSFUL SPINAL BLOCK FOR KNEE REPLACEMENT SURGERY History of arthroscopy of left knee x2 History of arthroscopy of right knee X 2 History of brachytherapy ~2012 FOR PROSTATE CANCER History of cardiac radiofrequency ablation 2 YEARS AGO (DR. CRAWLEY) History of carpal tunnel release RT WRIST. 02/25/2018. MAC no issues. History of cataract surgery RT/LEFT History of colonoscopy with polypectomy History of cystoscopy FOR BLADDER NECK SCARRING History of herniorrhaphy INGUINAL (RIGHT) History of repair of rotator cuff RIGHT History of total knee replacement BILATERAL Hx of transurethral resection of prostate Past Anesthesia History No Family Hx of Anesthesia Complications FAILED SPINAL AFTER 4 ATTEMPTS WITH PRIOR TKA, PATIENT RECALLS SIGNIFICANT DISCOMFORT. History of PONV No Hx of PONV and No Hx of Motion Sickness Social History Smoking Status: Never smoker Do You Dip or Chew Tobacco: No Hx Alcohol Use: Yes Alcohol type: wine alcohol intake frequency: a few times a week Hx Substance Use: No substance use type: does not use Review of Systems Pt denies any recent chest pain, shortness of breath, cough, fever, URI, or uncontrolled acid reflux. +occasional palpitations Physical Exam Vital Signs BP: 164/96 P: 64bpm SPO2: 97% RA T: 98.2 F R: 16 ENMT Mouth: + dentures (partial upper) and + dental restorations (crowns on upper front and one molar); no chipped teeth and no loose teeth Thyromental Distance: > or= 3.5 Finger Breadths Mallampati Class: I Neck + thick neck; neck extension not limited Respiratory normal respiratory effort, lungs clear to auscultation Cardiovascular RRR, no murmur, no edema Vessels: no carotid bruit Testing Laboratory Results 05/09/20 11:00 05/09/20 11:00 PT 10.6 Seconds (9.0-12.0) 05/09/20 11:00 INR 1.0 (0.9-1.1) 05/09/20 11:00 APTT 27.9 Seconds (21.0-31.0) 05/09/20 11:00 Urine Color Yellow 05/09/20 11:00 Urine Appearance Clear (Clear) 05/09/20 11:00 Urine pH 6.0 (4.5-7.5) 05/09/20 11:00 Ur Specific [place] 1.011 (1.000-1.030) 05/09/20 11:00 Urine Protein Negative (Negative) 05/09/20 11:00 Urine Glucose (UA) Negative (Negative) 05/09/20 11:00 Urine Ketones Negative (Negative) 05/09/20 11:00 Urine Nitrite Negative (Negative) 05/09/20 11:00 Ur Leukocyte Esterase Negative (Negative) 05/09/20 11:00 Blood Type O Negative 05/09/20 11:00 Antibody Screen NEGATIVE 05/09/20 11:00 Electrocardiogram Date: 05/09/20 Findings: + SB @ (58bpm with 1st degree AV block) NSIVCD. No significant change from 10/30/18. Chest X-Ray Date: 05/09/20 Findings: + NAD
--- NOTE | 2020-05-09 11:33 | XRay Report ---
XR chest Pre-admission PA/Lat CLINICAL HISTORY: Preoperative chest COMPARISON STUDY: No previous studies for comparison. FINDINGS: The cardiac and mediastinal contours are normal. There is no evidence of focal pulmonary co nsolidation. There is no evidence of failure. No pleural effusions are visualized.[There is a stable right midlung zone calcified granuloma IMPRESSION: No active disease in the chest. ACT 112: Negative or not required by law. Electronically signed by: Júnior Moore M.D. 05/09/2020 11:31 AM
[2020-05-09 13:58] LABS: Basophils # (auto) 0.05 K/uL (0-0.2); Basophils % (auto) 0.7 %; Eosinophils # (auto) 0.29 K/uL (0-0.5); Eosinophils % (auto) 4.3 %; Hematocrit (blood only) 50.3 % (42-52); Hemoglobin 17.7 g/dL (14.0-18.0); Immature Granulocytes # (auto) 0.03 K/uL (0.00-0.02); Immature Granulocytes % (auto) 0.4 %; Lymphocytes # (auto) 2.13 K/uL (1.2-3.4); Lymphocytes % (auto) 31.4 %; Mean Corpuscular Hemoglobin 31.6 pg (25-34); Mean Corpuscular Hgb Conc 35.2 g/dL (32-36); Mean Corpuscular Volume 89.8 fL (80-100); Mean Platelet Volume 10.6 fL (7.4-10.4); Monocytes # (auto) 0.83 K/uL (0.11-0.59); Monocytes % (auto) 12.2 %; Neutrophils # (auto) 3.45 K/uL (1.4-6.5); Platelet Count 198 K/uL (130-400); RDW Coefficient of Variation 13.9 % (11.5-14.5); RDW Standard Deviation 45.1 fL (36.4-46.3); White Blood Count 6.78 K/uL (4.8-10.8)
[2020-05-09 14:13] LABS: Partial Thromboplastin Ratio 1.1; Partial Thromboplastin Time 27.9 Seconds (21.0-31.0); Prothrombin Time 10.6 Seconds (9.0-12.0)
[2020-05-09 14:38] LABS: Appearance Urine Clear (Clear); Bilirubin Urine Negative (Negative); Blood Urine Negative (Negative); Color Urine Yellow; Glucose Urine UA Negative (Negative); Ketones Urine Negative (Negative); Leukocyte Esterase Urine Negative (Negative); Nitrite Urine Negative (Negative); Protein Urine Negative (Negative); Specific Gravity Urine 1.011 (1.000-1.030); Urobilinogen Urine Negative (Negative)
[2020-05-09 15:15] LABS: BUN Creatinine Ratio 11.5 (10-20); Calcium 9.6 mg/dl (8.5-10.1); Creatinine Clr Calc Pharmacy 112.2 ml/min; Est GFR (African American) 93.8; Est GFR (Non-African American) 80.9
--- NOTE | 2020-05-09 16:31 | Electrocardiogram Report ---
Test Reason : Blood Pressure : / mmHG Vent. Rate : 058 BPM Atrial Rate : 058 BPM P-R Int : 228 ms QRS Dur : 122 ms QT Int : 442 ms P-R-T Axes : 010 080 065 degrees QTc Int : 433 ms Sinus bradycardia with 1st degree A-V block Non-specific intra-ventricular conduction delay Borderline ECG When compared with ECG of 30-OCT-2018 11:39, No significant change was found Confirmed by Zachary Ortiz ([id number]) on 05/09/2020 4:31:01 PM Referred By: Herrera Garza Confirmed By:Julio Ortiz
--- NOTE | 2020-05-10 17:00 | History & Physical Report ---
Date of Service May 10, 2020 Assessment & Plan (1) Degenerative joint disease of left hip: Postoperative prescriptions for Percocet and Coumadin will be provided at discharge from the hospital. Anticipate discharge to home with home health services. The patient will obtain COVID-19 nasal swab testing 1 week prior to surgery. He is aware of the risks associated with COVID-19 and surgery. He is currently asymptomatic of any COVID-19 symptoms. PDMP was checked and there are no concerning findings. He already has access to a walker. He will see his PCP later this week for medical clearance. Preoperative lab work, EKG, and chest x- ray have been ordered. History of Present Illness Chief Complaint: Left hip pain Primary Care Provider: Alpesh Hammond DO This 69-year-old white male presents today for his preoperative history and physical. He is scheduled to undergo a left total hip arthroplasty using dual mobility cup on 06/01/2020. The patient has had a longstanding history of left hip pain. He has tried physical therapy as well as activity modification and oral anti-inflammatories without improvement. He notes restriction in motion of the left hip. Pain is worse with weightbearing and activity. It is affecting his ADLs. He notes occasional night pain in the groin. No numbness or tingling. Preoperative imaging has been obtained. Allergies Allergy/AdvReac Type Severity Reaction Status Date / Time benzalkonium chloride AdvReac Intermediate REDNESS Verified 04/21/20 12:12 bimatoprost AdvReac Intermediate REDNESS Verified 04/21/20 12:12 oxycodone AdvReac Mild N/V Verified 04/21/20 12:12 Home Medications Medication Instructions Recorded Confirmed Type acetaminophen 500 mg tablet 1,000 mg PO TID PRN #90 tab 10/16/18 04/21/20 History hydrochlorothiazide 25 mg tablet 25 mg PO QAM #90 tab 05/12/19 04/21/20 Rx allopurinol 300 mg tablet 300 mg PO QAM #90 tab 06/08/19 04/21/20 Rx amlodipine 5 mg tablet 5 mg PO QAM #90 tab 07/14/19 04/21/20 Rx atorvastatin 10 mg tablet 10 mg PO QAM #90 tab 07/14/19 04/21/20 Rx tramadol 50 mg tablet 50 mg PO HS PRN #30 tab 08/20/19 04/21/20 Rx lisinopril 40 mg tablet 40 mg PO QAM #90 tab 09/07/19 04/21/20 Rx gabapentin 300 mg capsule 300 mg PO BID #180 cap 01/18/20 04/21/20 Rx meloxicam 7.5 mg PO QAM 01/21/20 04/21/20 History dorzolamide-timolol 1 drp OPB BID 04/21/20 04/21/20 History potassium citrate 1,080 mg PO QAM 04/21/20 04/21/20 History Past Med/Surg History Medical History Dyslipidemia Glaucoma History of prostate cancer Hx of atrial flutter s/p ablation 10/2018 [facility]. Hx of gout Hypertension Kidney stone Lumbar radiculopathy Lumbar spinal stenosis Male stress incontinence Morbid obesity Urethral stricture SELF CATH X 1 PER WEEK (PER PATIENT) PLEASE USE 14G CATHETER IF REQUIRED Surgical History H/O eye surgery CORNEAL SCRAPING OF RIGHT EYE History of anesthesia reaction UNSUCCESSFUL SPINAL BLOCK FOR KNEE REPLACEMENT SURGERY History of arthroscopy of left knee x2 History of arthroscopy of right knee X 2 History of brachytherapy ~2012 FOR PROSTATE CANCER History of cardiac radiofrequency ablation 2 YEARS AGO (DR. CRAWLEY) History of carpal tunnel release RT WRIST. 02/25/2018. MAC no issues. History of cataract surgery RT/LEFT History of colonoscopy with polypectomy History of cystoscopy FOR BLADDER NECK SCARRING History of herniorrhaphy INGUINAL (RIGHT) History of repair of rotator cuff RIGHT History of total knee replacement BILATERAL Hx of transurethral resection of prostate Family History Unknown Heart disease Cancer Hypertension Mother In good health Lung cancer Father In good health Other No family history of adverse response to anesthesia Denies family history of Ovarian cancer Prostate cancer Breast cancer Colorectal cancer Social History Smoking Status: Never smoker Second Hand Exposure: No; Do You Dip or Chew Tobacco: No; Hx Alcohol Use: Yes Alcohol type: wine Hx Substance Use: No Preferred Language: Sami Communication Ability: Effective Visual Impairment: No Limitations Hearing Ability: Normal Business Analytics Intern Required: No Beliefs That Will Affect Care: None marital status: Current Living Situation: Spouse current occupational status: retired Feels Safe at Home: Yes Safety Concerns: Feels Safe At This Time Childhood Exposure to Second-Hand Smoke: Yes Diet Comment: regular caffeine: Yes during the past year weight has: remained stable Dental Care, Regularly: Yes Physical Activity Frequency: 3-4 Times per Week Physical Activity Frequency Comment: [employer] 3 timea a week, golf Seatbelt Use: always Sunscreen Use: Yes Assistive Devices: Glasses Assistive Devices Comment: READING GLASSES/UPPER PARTIAL PLATE Review of Systems Review of Systems: All systems reviewed & are unremarkable except as noted in Subjective A total of 10 systems were reviewed. Physical Exam Physical Exam: Vitals: Height 191 cm, weight 147.6 kilograms, BMI 40.5, temp erature 36.9, BP 142/76, pulse 63, O2 sat 97% on room air. General: Well- developed, well-nourished, elderly white male in no acute distress. Sitting in a chair. Alert and oriented. Skin: Warm and dry with good turgor. No rashes or lesions. No ecchymosis or erythema. HEENT: Normocephalic, atraumatic. Eyes: PERRLA, EOMI. Nares and oropharynx exams deferred due to COVID precautions. Heart: RRR, no MGR. Lungs: Clear to auscultation bilaterally, no crackles, rhonchi or wheezing, good air movement. Abdomen: Obese, bowel sounds present x4, soft, nontender. No organomegaly. No masses. Musculoskeletal: Left hip evaluation reveals no obvious asymmetry or deformity. He does have an external rotation contracture. Internal rotation to not quite neutral. External rotation of around 20 degrees before significant onset of pain. Hip flexion to 80 degrees before restriction in pain. No discomfort with palpation over his IT band or greater trochanter. Ambulates with an antalgic gait. Strength is 5/5 for resisted hip flexion as well as abduction and adduction. Neurologic: Gross sensation is intact across both lower extremities by soft touch. Peripheral pulses are 2+. Results & Data Results & Data ([facility]) Diagnostic Findings Radiographic imaging previously obtained shows end-stage DJD of the hips, left greater than right.
[2020-06-01] MEDS ORDERED: LR 500ML BOLUS IV SCH (06:00)
[2020-06-01] MEDS ORDERED: TRANEXAMIC ACID 1,000 MG **IV Pre-op IV SCH (06:00)
[2020-06-01] MEDS ORDERED: ROPIVACAINE 0.5% HCL/PF 150 MG, BUPIVACAINE 0.75% MPF 20 ML, EPINEPHrine 0.15 MG, Ketor... INFIL SCH (06:00)
[2020-06-01] MEDS ORDERED: LR 60ML/HR IV SCH (06:00)
[2020-06-01] MEDS ORDERED: BUPIVACAINE 0.5 % 5 MG/1 ML PF 10ML VIAL ONE (06:18)
--- NOTE | 2020-06-01 06:31 | History & Physical Bridge Note ---
Date of Service June 01, 2020 History & Physical Bridge Note I have examined the patient, reviewed the History & Physical and in the interval since the performance of the History & Physical I have noted the following changes of clinical significance: consent obtained/site verified/covid screen negative.no changes noted
[2020-06-01] MEDS ORDERED: ORTHO JOINT ANESTHETIC ONE (06:32)
[2020-06-01] MEDS ORDERED: fentaNYL citrate 100 MCG/2 ML VIAL ONE ×2 (06:41→08:04)
[2020-06-01] MEDS ORDERED: PROPOFOL IV EMULSION 10 MG/ML 20 ML VIAL IV ONE (06:41)
[2020-06-01] MEDS ORDERED: MIDAZOLAM HCL 1 MG/ML 2ML VIAL ONE (06:41)
[2020-06-01] MEDS ORDERED: LIDOCAINE HCL 2% 2 ML VIAL/AMP(20MG/ML) INFIL ONE (06:41)
[2020-06-01] MEDS ORDERED: ATROPINE SULFATE 0.1 MG/ML 10ML SYR IV PRN (06:42)
[2020-06-01] MEDS ORDERED: ONDANSETRON INJ 2 MG/ML 2 ML VIAL IV PRN ×2 (06:42→10:44)
[2020-06-01] MEDS ORDERED: ePHEDrine sulfate 50 MG/ML AMP IV PRN (06:42)
[2020-06-01] MEDS ORDERED: ONDANSETRON INJ 2 MG/ML 2 ML VIAL ONE (07:31)
[2020-06-01] MEDS ORDERED: ROCURONIUM BROMIDE 10 MG/ML 5 ML VIAL IV ONE ×3 (07:31→08:12)
[2020-06-01] MEDS ORDERED: GLYCOPYRROLATE 0.2 MG/ML VIAL ONE (07:32)
[2020-06-01] MEDS ORDERED: NEOSTIGMINE METHYLSULFATE 5 MG/5 ML SYR ONE (07:32)
--- NOTE | 2020-06-01 09:02 | Post Operative Brief Note ---
Immediate Post Op Note v1 Date of Surgery June 01, 2020 Pre & Post Diagnosis Operation Date: 06/01/20 07:00 Pre-Op Diagnosis: Left Hip Degenerative Joint Disease Post-Op Diagnosis: Left Hip Degenerative Joint Disease I identified the patient and participated in the time-out.: Yes Procedure Operation Date: 06/01/20 07:00 Actual Procedures p Left Total Hip Arthroplasty Dual Mobility, Uncemented(Left) - Herrera Garza MD Surgeon Herrera Garza MD Assistant Mechanic Karrie/greg Estimated Blood Loss 250 Findings Consistent with Post-Op Diagnosis
--- NOTE | 2020-06-01 09:18 | Operative Report ---
Post Operative Report Pre & Post Diagnosis Operation Date: 06/01/20 07:00 Pre-Op Diagnosis: Left Hip Degenerative Joint Disease Post-Op Diagnosis: Left Hip Degenerative Joint Disease I identified the patient and participated in the time-out.: Yes Procedure Operation Date: 06/01/20 07:00 Actual Procedures p Left Total Hip Arthroplasty Dual Mobility, Uncemented(Left) - Herrera Garza MD Surgeon RAFIQ Garza MD Supervisor Dry Cleaning Karrie/greg OCONNELL Estimated Blood Loss 250 Findings Consistent with Post-Op Diagnosis Specimens see operative report Drains none Complications none Disposition Accompanied Patient To Recovery: Yes Disposition: Recovery Room Indications This 69-year-old male presented to the office with complaints of persisting left hip pain. He had tried conservative care measures without improvement. He elected to proceed with surgical intervention after being educated about potential risks and outcomes. Preoperative imaging was obtained. Description of Procedure Patient was taken to the operating room where he was given general anesthesia. He was prepped and draped in the usual sterile fashion. Please see Dr. Garza's operative report for specifics of the procedure. I was present for the entire case from initial patient positioning through final wound closure. Assistance was provided in tissue retraction, hemostasis, trial implant placement, final implant placement, and final wound closure. Patient was taken to the recovery room in satisfactory condition. I attest to the content of the Intraoperative Record and any orders documented therein. Any exceptions are noted below.
[2020-06-01] MEDS: fentaNYL citrate 100 MCG/2 ML VIAL IV PRN ×4 (09:24→09:42)
[2020-06-01] MEDS ORDERED: VANCOMYCIN HCL 2,000 MG in SODIUM CHLORIDE 0.9% 500 ML IV ONE (09:30)
--- NOTE | 2020-06-01 09:49 | XRay Report ---
XR pelvis 1-2V routine CLINICAL HISTORY: S/P L TOTAL HIP ARTHROPLASTY single view AP centered on both hips COMPARISON STUDY: Pelvis 03/07/2020. FINDINGS: Status post a left total hip arthroplasty. The hardware appears intact. No fracture or disl ocation. Skin veda are in place. There is moderate osteoarthritis within the right hip, unchanged. Multiple brachytherapy seeds are again noted at the prostate gland. IMPRESSION: Status post left total hip arthroplasty. No evidence for hardware complication. ACT 112: Negative or not required by law. Electronically signed by: Finn Mcdowell M.D. 06/01/2020 9:47 AM
[2020-06-01] MEDS: HYDROmorphone INJ 1 MG/ML SYRINGE IV PRN ×4 (09:51→10:09)
--- NOTE | 2020-06-01 09:57 | Operative Report (OR) ---
DATE OF OPERATION: 06/01/2020 SURGEON: Herrera Garza MD. CERTIFIED MASTER SAFECRACKER: Karrie. SECOND CERTIFIED MASTER SAFECRACKER: Aldo Yap PA-C. PREOPERATIVE DIAGNOSES: Osteoarthritis with severe contracture of left hip. POSTOPERATIVE DIAGNOSES: Osteoarthritis with severe contracture of left hip. OPERATION PERFORMED: Noncemented left total hip replacement. PERIOPERATIVE SITUATION: Medically cleared male with intractable left hip pain. Only option is hip replacement. He wants to proceed with this. He knows the risks and consequences. Please see consent. DESCRIPTION OF PROCEDURE: The patient was appropriately identified, site verified, consent verified. Antibiotics confirmed as being given. The left lower extremity was prepped and draped in usual routine fashion. Posterior approach to the hip was then made. He is a large man, so an appropriate incision was made. Sharp dissection was carried through the skin and blunt dissection down to the bursa. There was a large bursal sac with bursal stones. These were all excised. The IT band was then split as well as gluteus sravani fascia. The sciatic nerve was identified and protected, and retractors were placed. The short external rotators were then released. Capsule was then identified and T'd and preserved. It was quite contracted. Labrum was excised posteriorly. The hip was then dislocated. The femoral neck resected. Anterior capsule released. Excellent acetabular exposure obtained. Serial reaming carried up to a 60 and a 60 Biomet G7 OsseoTi multi hole cup was then placed. An additional 6.5 x 25 screw was placed with excellent purchase. Trial liner was then seated. The hip was then flexed and internally rotated and the proximal femur prepared with a steel box toe inserter, lateralizing rasp, canal finder, serial broaching up to a size 8. Trial reduction was then carried out with an 8.5 being appropriate. The hip was then dislocated. All trial elements were removed. The wound was irrigated, permanent liner seated, permanent head and stem seated. The hip was then reduced. It was stable in all planes. Leg lengths were within millimeters of equality. The wound was then irrigated and appropriately closed using #2 Vicryl for the fascial layers, 2-0 Vicryl for the subcutaneous layer and stainless steel clips for skin. Subcu was closed in multiple layers using also 2-0 and #2 Vicryl. The skin was closed with veda. Wound was then appropriately dressed. The patient was then transferred to recovery room in satisfactory condition having tolerated the procedure well. ESTIMATED BLOOD LOSS: 250 mL. CRYSTALLOID: Per anesthesia. BONE PATHOLOGY: Pending. DVT prophylaxis per protocol. SUMMARY OF IMPLANTS: Size shell 60 mm Biomet G7 OsseoTi multi hole cup, liner was a 46 dual-mobility cobalt chrome, bearing was 46 mm dual mobility E1, the femoral head was a 28+8.5 ceramic and the screw was a 6.5 x 25. Again, the bearing was a 46 mm dual mobility E1. I attest to the content of the Intraoperative Record and any orders documented therein. Any exception s are noted below.
[2020-06-01] MEDS ORDERED: METOCLOPRAMIDE HCL INJ 5 MG/ML 2 ML VIAL IV PRN (10:44)
[2020-06-01] MEDS ORDERED: TAMSULOSIN HCL 0.4 MG CAP PO PRN (10:44)
[2020-06-01] MEDS ORDERED: diphenhydrAMINE 50 MG/ML VIAL IV PRN (10:44)
[2020-06-01] MEDS ORDERED: oxyCODONE HCL IR 5 MG TAB (IMMEDIATE RELEASE) PO PRN (10:44)
[2020-06-01] MEDS ORDERED: HYDROmorphone INJ 0.5 MG/0.5 ML SYR IV PRN (10:44)
[2020-06-01] MEDS ORDERED: bisacodyL 10 MG SUPP PR PRN (10:44)
[2020-06-01] MEDS ORDERED: ALUMINUM/MAGNESIUM SUSP 30 ML UDC PO PRN (10:44)
[2020-06-01] MEDS ORDERED: NALOXONE HCL 0.4 MG/1 ML VIAL/CARP IV PRN (10:44)
[2020-06-01] MEDS ORDERED: MAGNESIUM HYDROXIDE SUSP 30 ML UDC PO PRN (10:44)
[2020-06-01] MEDS: SODIUM CHLORIDE 0.9% 1000ML 1,000 ML IV SCH ×2 (10:50→23:00)
[2020-06-01] MEDS: KETOROLAC TROMETHAMINE 15 MG/ML VIAL IV SCH ×3 (11:23→23:00)
--- NOTE | 2020-06-01 11:46 | Progress Notes ---
DATE: 06/01/2020 SUBJECTIVE: Postop check status post left total hip replacement. The patient is nauseated. He has received some Reglan, had some Zofran previously. He denies any chest pain, shortness of breath, fever, chills, or headache. OBJECTIVE: Vital signs are stable. He is afebrile. Neurovascular check of femoral sciatic nerve is normal. Wound dressing clean. This was seen before his transfer to the floor. Postop x-ray looks excellent. ASSESSMENT: Postoperative nausea and vomiting, noncardiac. At this point in time, likely morphine driven. We will place scopolamine patch and use p.r.n. Zofran and Reglan. Mobilize when he is ready. JOSIE
--- NOTE | 2020-06-01 11:50 | Discharge Summary (DS) ---
Date of discharge is 06/02/2020 if does well. CHIEF COMPLAINT: Left hip pain. HISTORY OF PRESENT ILLNESS: Underwent elective left total hip replacement. Hospital course has been only complicated by some nausea and vomiting. This is morphine related. Denies any other problems. REVIEW OF SYSTEMS: Reveals no chest pain, shortness of breath, fever, chills, nausea, vomiting or headache. Postop x-rays look excellent. PAST MEDICAL HISTORY: Remarkable for dyslipidemia, glaucoma, prostate cancer, atrial flutter, history of gout, hypertension, kidney stones, lumbar radiculopathy, lumbar stenosis, stress incontinence, morbid obesity, urethral stricture. PAST SURGICAL HISTORY: Remarkable for eye surgery, multiple knee surgeries, carpal tunnel releases, colonoscopy, polypectomy, herniorrhaphies, rotator cuff repair, bilateral knee replacements, transurethral resection of prostate. FAMILY HISTORY: Remarkable for heart disease, cancer, hypertension, lung cancer. SOCIAL HISTORY: Reveals he is . Smokeless tobacco p.r.n. Social alcohol. ASSESSMENT: Status post left total hip replacement. PLAN: Continue with postop care pathway. Treat nausea. Scopolamine patch is ordered.
[2020-06-01] MEDS ORDERED: SCOPOLAMINE 1 MG TDSY TD SCH ×2 (12:30→14:01)
[2020-06-01] MEDS ORDERED: Nursing to Pharmacy Communication SCH (12:45)
[2020-06-01] MEDS: ACETAMINOPHEN 500 MG TAB PO SCH ×2 (14:24→21:15)
[2020-06-01] MEDS: ORTHO WARFARIN NOMOGRAM SCH (14:24)
--- NOTE | 2020-06-01 14:51 | Anesthesiology Progress Note ---
Date of Service June 01, 2020 Anesthesia Post Procedure Vital Signs Vital Signs: Temp Pulse Pulse Resp BP BP Pulse Ox 06/01/20 14:21 84 18 143/87 H 95 06/01/20 14:07 90 130/75 06/01/20 14:05 122/72 97 06/01/20 13:40 36.3 C L 90 18 155/81 H 94 06/01/20 12:40 36.4 C L 79 14 141/83 H 97 06/01/20 11:37 36.3 C L 89 18 159/88 H 97 06/01/20 11:10 36.5 C 66 14 152/84 H 97 06/01/20 10:40 36.4 C L 80 14 150/96 H 96 06/01/20 10:25 36.5 C 73 12 110/71 97 06/01/20 10:15 36.5 C 78 12 108/67 97 06/01/20 10:05 36.5 C 62 15 116/71 95 06/01/20 09:55 77 15 124/88 98 06/01/20 09:45 74 15 134/82 94 06/01/20 09:35 74 18 120/85 95 06/01/20 09:25 76 12 119/79 98 06/01/20 09:19 36.4 C L 79 15 110/75 97 06/01/20 05:52 37.2 C 66 20 147/87 H 96 Pain Intensity Left Hip: Pain Intensity: 4 Transfer of Care Handoff Completed per policy Notes Mental Status: alert / awake / arousable and participated in evaluation Patient Amnestic to Procedure: Yes Nausea / Vomiting: adequately controlled Pain: adequately controlled Airway Patency, RR, SpO2: stable & adequate BP & HR: stable & adequate Hydration State: stable & adequate Anesthetic Complications: no major complications apparent and Pt Satisfied with anesthetic care
[2020-06-01] MEDS ORDERED: TRANEXAMIC ACID / 0.7% NACL 1,000 MG/100 ML BAG IV SCH (15:30)
[2020-06-01] MEDS: ONDANSETRON INJ 2 MG/ML 2 ML VIAL IV PRN (15:31)
[2020-06-01] MEDS: CHECK SCOPOLAMINE PATCH PLACEMENT SCH (15:35)
[2020-06-01] MEDS ORDERED: WARFARIN SOD 5 MG TAB PO ONE (16:00)
[2020-06-01] MEDS: ceFAZolin 2000MG 2,000 MG/15 ML SYR IV SCH ×2 (16:46→23:00)
[2020-06-01] MEDS: FERROUS GLUCONATE 324 MG TAB PO SCH (16:56)
[2020-06-01] MEDS: ASCORBIC ACID 500 MG TAB PO SCH (16:56)
[2020-06-01] MEDS ORDERED: SENNA 8.6 MG TAB PO SCH (21:00)
[2020-06-01] MEDS: DOCUSATE SODIUM 100 MG CAP PO SCH (21:15)
[2020-06-01] MEDS: GABAPENTIN 300 MG CAP PO SCH (21:15)
[2020-06-01] MEDS: DORZOLAMIDE/TIMOLOL 22.3/6.8MG/ML 10 ML BTL OPB SCH (21:16)
[2020-06-02] MEDS: ONDANSETRON INJ 2 MG/ML 2 ML VIAL IV PRN (00:24)
[2020-06-02] MEDS ORDERED: COUGH DROP (SUGAR FREE) LOZ 24 LOZ/1 BOX BUCCAL ONE (00:29)
[2020-06-02] MEDS: CHECK SCOPOLAMINE PATCH PLACEMENT SCH ×2 (00:31→09:47)
[2020-06-02] MEDS: ACETAMINOPHEN 500 MG TAB PO SCH (05:00)
[2020-06-02] MEDS: KETOROLAC TROMETHAMINE 15 MG/ML VIAL IV SCH (05:00)
[2020-06-02 06:48] LABS: Basophils # (auto) 0.03 K/uL (0-0.2); Basophils % (auto) 0.2 %; Hematocrit (blood only) 32.8 % (42-52); Hemoglobin 11.7 g/dL (14.0-18.0); Immature Granulocytes # (auto) 0.03 K/uL (0.00-0.02); Immature Granulocytes % (auto) 0.2 %; Lymphocytes # (auto) 2.01 K/uL (1.2-3.4); Lymphocytes % (auto) 12.6 %; Mean Corpuscular Hemoglobin 31.4 pg (25-34); Mean Corpuscular Hgb Conc 35.7 g/dL (32-36); Mean Corpuscular Volume 87.9 fL (80-100); Mean Platelet Volume 9.5 fL (7.4-10.4); Monocytes # (auto) 2.71 K/uL (0.11-0.59); Platelet Count 206 K/uL (130-400); RDW Coefficient of Variation 14.1 % (11.5-14.5); RDW Standard Deviation 45.3 fL (36.4-46.3); Red Blood Count 3.73 M/uL (4.7-6.1); White Blood Count 15.98 K/uL (4.8-10.8)
[2020-06-02 07:01] LABS: INR 1.2 (0.9-1.1); Prothrombin Time 12.1 Seconds (9.0-12.0)
[2020-06-02 07:15] LABS: BUN Creatinine Ratio 17.5 (10-20); Calcium 8.1 mg/dl (8.5-10.1); Creatinine Clr Calc Pharmacy 108.3 ml/min; Est GFR (African American) 89.2; Potassium 3.7 mmol/L (3.5-5.1)
--- NOTE | 2020-06-02 07:42 | Progress Notes ---
DATE: 06/02/2020 SUBJECTIVE: Postop day #1 status post left total hip replacement. The patient has been a bit sluggish. He has not been out of bed. Needs to get up and move. He denies any shortness of breath, chest pains, fever, chills, nausea, or vomiting. He has done well since the scopolamine patch has been put on. He does note that it was making him dry. He denies any visual issues. OBJECTIVE: Vital signs are stable. He is afebrile. A.m. labs are pending. Hip dressing clean, dry and intact. The femoral sciatic nerve is normal. Calves nontender. Hip located. ASSESSMENT AND PLAN: Bit sluggish after hip replacement. A big man, needs to get up, needs to move, needs to avoid complications from lying in bed. Needs PT and OT JJ this morning and hopefully cleared for discharge later today. Move scopolamine patch if he tolerates breakfast.
[2020-06-02] MEDS ORDERED: dexAMETHasone 10 MG in SYRINGE 0 ML IV SCH (08:00)
--- NOTE | 2020-06-02 08:55 | Orthopedic Progress Note ---
Date of Service June 02, 2020 Assessment & Plan Admission and Anticipated Discharge Date Admission Date: June 01, 2020 Results & Data ([facility]) Vital Signs (Past 12 Hours) Vital Signs Temp Pulse Pulse Resp BP Pulse Ox 06/02/20 07:23 37.2 C 84 18 121/77 90 06/02/20 03:43 37.0 C 91 H 20 109/68 92 06/01/20 23:00 36.9 C 88 18 165/88 H 95
[2020-06-02] MEDS ORDERED: allopurinoL 300 MG TAB PO SCH (09:00)
[2020-06-02] MEDS ORDERED: lisinopril 40 MG TAB PO SCH (09:00)
[2020-06-02] MEDS ORDERED: MULTIVITAMIN TAB PO SCH (09:00)
[2020-06-02] MEDS ORDERED: hydroCHLOROthiazide 25 MG TAB PO SCH (09:00)
[2020-06-02] MEDS ORDERED: amLODIPine BESYLATE 5 MG TAB PO SCH (09:00)
[2020-06-02] MEDS ORDERED: ATORVASTATIN 10 MG TAB PO SCH (09:00)
[2020-06-02] MEDS ORDERED: POTASSIUM CITRATE 10 MEQ TAB PO SCH (09:00)
[2020-06-02] MEDS: ASCORBIC ACID 500 MG TAB PO SCH (09:51)
[2020-06-02] MEDS: FERROUS GLUCONATE 324 MG TAB PO SCH (09:51)
[2020-06-02] MEDS: DOCUSATE SODIUM 100 MG CAP PO SCH (09:52)
[2020-06-02] MEDS: GABAPENTIN 300 MG CAP PO SCH (09:55)
[2020-06-02] MEDS: DORZOLAMIDE/TIMOLOL 22.3/6.8MG/ML 10 ML BTL OPB SCH (09:57)
[2020-06-02] MEDS: ORTHO WARFARIN NOMOGRAM SCH (10:55)
[2020-06-02] MEDS ORDERED: WARFARIN SOD 5 MG TAB PO ONE (11:30)
== END 2020-06-02 13:37 | disposition home health service (06) ==
LOC: ASU 05:24 → 3E 05:24

== ENCOUNTER 2023-01-26 09:02 | Observation (INO) ==
[2023-01-26] MEDS ORDERED: SODIUM CHLORIDE 0.9% 500 ML IV STA (09:36)
[2023-01-26] MEDS ORDERED: traMADol HCL 50 MG TABLET PO STA (09:39)
--- NOTE | 2023-01-26 09:40 | Emergency Department Note ---
Impression & Plan Hematoma ADMIT ED Provider Note HPI: History obtained from patient. The patient is a 72-year-old gentleman with history of atrial flutter who presents emergency department chief complaint of left groin pain and firmness to palpation. Patient is status post Watchman procedure this past Saturday at [facility]. Patient tells me that he developed some pain and firmness in the area of his left groin radiating around the top portion of his left upper leg that is been worsening over about the past 48 hours. Patient denies any chest pain or shortness of breath. Patient is currently on Xarelto and states his last dose was last evening around dinnertime. Patient is otherwise in no acute distress on arrival, he is hemodynamically stable on arrival. ROS: - Per HPI Differential Diagnosis: Hematoma formation with active extravasation, pseudoaneurysm, contusion, amongst other potential pathologies. *Outpatient medications and allergy history reviewed. *Pertinent external medical records reviewed PE: General: Alert HEENT: Normocephalic, trachea midline Eyes: Extraocular eye movement is intact, no scleral erythema Pulmonary: Clear to auscultation bilaterally, no wheezing Cardio: Regular rate and rhythm GI: Abdomen is soft to palpation : No suprapubic tenderness MSK: No evidence of trauma or malformation of the extremities, no edema Skin: No evidence of rash, there is area of contusion to the bilateral groin with firmness to palpation in the posterior and mid aspect of the left upper thigh Neuro: Alert, no focal deficits Psychiatric: Cooperative INDEPENDENT INTERPRETATIONS: cardiac monitor technician: (As interpreted by myself): - An order was placed for continuous cardiac monitoring - Patient was noted to be in sinus rhythm with a rate of 68 Medical Decision Making: Patient presents emergency department with increasing contusion and firmness with pain to the area of the left groin where he was noted to have venipuncture for a Watchman procedure that was done on Saturday at [facility]. Due to the ED the patient is hemodynamically stable. IV was established lab work obtained, patient was placed on cardiac rehabilitation specialist. Lab work shows no leukocytosis, hemoglobin is stable at 13.3, platelet count is 218, CMP does not show any critical findings, CT angiography of the abdomen pelvis with runoff shows possible pseudoaneurysm versus area of extravasation within the left abductor muscle. This finding was discussed with the interpreting radiologist, Dr. Andrew. I then discussed these findings with interventional cardiology, Dr. Lackey, who recommends admission for observation and cessation of the patient's anticoagulation. I also discussed the patient's presentation with the on-call credit and loan collections supervisor at [facility] where the patient had his procedure performed, Dr. Quinn, who is in agreement with this plan. States the patient may require cessation of his anticoagulation for the next 2 to 3 days. Patient is currently hemodynamically stable, hemoglobin is stable, area of active extravasation appears to be small, we will hold off on reversal of Xarelto with Kcentra at this time. I discussed this plan with the patient, he is in agreement for admission for observation. Hospitalist service was consulted for admission, case was discussed with Dr. Garcia, and the patient was placed for admission in stable condition. Consultants/Discussions held with other healthcare providers: -Interventional cardiology, Dr. Lackey -Interventional cardiology at tertiary care facility, Dr. Quinn -Hospitalist, Dr. Garcia Disposition discussion held by myself with: -Patient Diagnosis: 1. Hematoma formation with possible extravasation, on OAC 2. Status post Watchman procedure, postoperative day number 4 Disposition: ADMIT Dong Cid, DO Emergency Medicine Past Med/Surg History Medical History Presence of Watchman left atrial appendage closure device placed 01/22/23 [facility]. History of COVID-19 01/07/22, home test, not hosp; "bad cold in my throat and head," body aches- treated with paxlovid>resolved Degenerative joint disease of left hip Morbid obesity History of prostate cancer Hx of gout Kidney stone hx Hx of atrial flutter s/p ablation 10/2018 [facility]. Follows with Dr. Crawley. History of colon polyps Male stress incontinence Lumbar spinal stenosis Lumbar radiculopathy Dyslipidemia Glaucoma Hypertension Surgical History S/P trigger finger release History of carpal tunnel release Status post implantation of artificial urinary sphincter Hx of cystoscopy w/urethrotomy Hx of elbow surgery cubital tunnel release rt elbow History of left hip replacement (~05/2020) Hx of transurethral resection of prostate History of cardiac radiofrequency ablation 2018 (DR. CRAWLEY) History of arthroscopy of right knee X 2 History of arthroscopy of left knee x2 History of cataract surgery RT/LEFT History of carpal tunnel release RT WRIST. 02/25/2018. MAC no issues. History of anesthesia reaction UNSUCCESSFUL SPINAL BLOCK FOR KNEE REPLACEMENT SURGERY History of repair of rotator cuff RIGHT History of total knee replacement BILATERAL History of herniorrhaphy INGUINAL (RIGHT) History of colonoscopy 01/2020 Repeat 3 yrs History of cystoscopy FOR BLADDER NECK SCARRING History of brachytherapy ~2001 FOR PROSTATE CANCER H/O eye surgery CORNEAL SCRAPING OF RIGHT EYE Family History Unknown No problems noted. Mother Lung cancer Hypertension Father Cancer Heart disease Hypertension Daughter Hypothyroidism Sister Hypothyroidism Other No family history of adverse response to anesthesia Denies family history of Ovarian cancer Prostate cancer Breast cancer Colorectal cancer Social History Smoking Status: Never smoker Second Hand Exposure: Yes (HX GROWING UP); Do You Dip or Chew Tobacco: No; Hx Alcohol Use: Yes Alcohol type: wine Alcohol Intake Frequency: 2-4 x/Month Alcohol Intake Frequency Comment: 1 bottle wine a week Hx Substance Use: No Preferred Language: Macedonian Communication Ability: Effective Visual Impairment: Diminished Hearing Ability: Normal Space Control Supervisor Required: No Beliefs That Will Affect Care: None marital status: Current Living Situation: Spouse current occupational status: retired How many Children do You have: 1 Feels Safe at Home: Yes Childhood Exposure to Second-Hand Smoke: Yes (both parents smoked ) Diet: regular Diet Comment: regular caffeine: Yes (coffee tea and soda ) during the past year weight has: remained stable Dental Care, Regularly: Yes Physical Activity Frequency: 3-4 Times per Week Physical Activity Frequency Comment: [employer] 3 timea a week Seatbelt Use: always Sunscreen Use: No (wears a hat) Do you think of yourself as: straight/heterosexual Assistive Devices: Denture - Upper and Glasses Allergies Allergies Allergy/AdvReac Type Severity Reaction Status Date / Time benzalkonium chloride AdvReac Intermediate REDNESS Verified 01/24/23 15:15 bimatoprost AdvReac Intermediate REDNESS Verified 01/24/23 15:15 oxycodone AdvReac Mild N/V Verified 01/24/23 15:15 Home Meds Home Medications Medication Instructions Recorded Confirmed acetaminophen 500 mg tablet 1,000 mg PO TID PRN Pain, Mild #90 10/16/18 01/26/23 tabs dorzolamide 22.3 mg-timolol 6.8 1 drp OPB BID 04/21/20 01/26/23 mg/mL eye drops vitamin B complex 1 tab PO DAILY 03/24/21 01/26/23 multivitamin 1 tab PO DAILY 01/08/22 01/26/23 allopurinol 300 mg tablet 300 mg PO QAM 06/25/22 01/26/23 rivaroxaban 20 mg tablet (Xarelto) 20 mg PO QPM 06/25/22 01/26/23 fluoride (sodium) 1.1 % dental 1 applic dental DIRECTED 01/26/23 01/26/23 paste (PreviDent 5000 Dry Mouth) Previous Rx's Medication Instructions Recorded atorvastatin 10 mg tablet 10 mg PO QAM #90 tabs 07/06/22 amlodipine 5 mg tablet 5 mg PO QAM #90 tabs 07/24/22 hydrochlorothiazide 25 mg tablet 25 mg PO QAM #90 tabs 07/24/22 lisinopril 40 mg tablet 40 mg PO QAM #90 tabs 09/06/22 tramadol 50 mg tablet 50 mg PO TID PRN Pain #30 tabs 11/15/22 potassium citrate 10 mEq (1,080 1,080 mg PO QAM #90 tabs 11/26/22 mg) tablet,extended release pregabalin 75 mg capsule (Lyrica) 75 mg PO TID #240 caps 01/03/23 peg [id number] [id number] See Rx Instructions PO .COMPLEX #2 01/16/23 178.7-7.3-0.5-1.12-0.9 gram oral mL soln (Suflave) Results & Data (ED) Vital Signs Vital Signs - 24 hr 01/26/23 09:09 01/26/23 09:57 01/26/23 09:57 Temperature 36.8 C Temperature Source Temporal Artery Scan Pulse Rate 73 Pulse Rate [Apical] 68 Respiratory Rate 18 20 Respiratory Effort / Characteristics Non-Labored Non-Labored Respiratory Depth Normal Normal Blood Pressure 141/75 H Blood Pressure [Right Arm] 117/64 Blood Pressure Mean 97 Blood Pressure Mean [Right Arm] 81 Blood Pressure Position Sitting Pulse Oximetry 96 96 98 Oxygen Delivery Method Room Air Room Air Room Air Sepsis Recent Fever Within 48 Hours No Sepsis New/Unexplained Change in Mental Status No Sepsis Action Taken by Nursing No Action Required 01/26/23 10:02 01/26/23 13:02 Temperature Temperature Source Pulse Rate 66 Pulse Rate [Apical] 66 Respiratory Rate 16 Respiratory Effort / Characteristics Respiratory Depth Blood Pressure Blood Pressure [Right Arm] 127/72 Blood Pressure Mean Blood Pressure Mean [Right Arm] 90 Blood Pressure Position Pulse Oximetry 97 Oxygen Delivery Method Sepsis Recent Fever Within 48 Hours Sepsis New/Unexplained Change in Mental Status Sepsis Action Taken by Nursing Laboratory Data 01/26/23 10:01 01/26/23 10:01 Lab Results 01/26/23 01/26/23 01/26/23 Range/Units 09:59 10:01 12:21 WBC 10.04 (4.8-10.8) K/ul RBC 4.32 L (4.70-6.10) M/uL Hgb 13.3 L (14.0-18.0) g/dl Hct 38.9 L (42.0-52.0) % MCV 90.0 (80.0-100.0) fL MCH 30.8 (25.0-34.0) pg MCHC 34.2 (32.0-36.0) g/dL RDW Std Deviation 45.0 (36.4-46.3) fL RDW Coeff of [place] 13.7 (11.5-14.5) % Plt Count 218 (130-400) K/uL MPV 10.9 (9.4-12.4) fL Immature Gran % (Auto) 0.7 % Neut % (Auto) 67.4 % Lymph % (Auto) 14.9 % [place] % (Auto) 14.1 % Eos % (Auto) 2.2 % Baso % (Auto) 0.7 % Neut # (Auto) 6.76 H (1.40-6.50) K/uL Lymph # (Auto) 1.50 (1.20-3.40) K/uL [place] # (Auto) 1.42 H (0.11-0.59) K/uL Eos # (Auto) 0.22 (0.00-0.50) K/uL Baso # (Auto) 0.07 (0.00-0.20) K/uL Immature Gran # (Auto) 0.07 (0.01-0.20) K/uL Sodium 140 (136-145) mmol/L Potassium 3.7 (3.5-5.1) mmol/L Chloride 104 (98-107) mmol/L Carbon Dioxide 30 (21-32) mmol/L Anion Gap 6 (3-11) BUN 15 (6-23) mg/dl Creatinine 0.75 (0.6-1.4) mg/dl Est Cr Clr Drug Dosing 136.9 ml/min Est GFR ( Amer) 107.0 ml/min Est GFR (Non-Af Amer) 92.3 ml/min BUN/Creatinine Ratio 20.0 (10-20) Glucose 101 H (70-99(Fasting)) mg/dl Calcium 9.9 (8.6-10.3) mg/dl Total Bilirubin 1.1 H (0.2-1.0) mg/dl AST 15 (13-39) U/L ALT 11 (7-52) U/L Alkaline Phosphatase 47 (34-104) U/L Total Protein 6.7 (6.0-8.3) gm/dl Albumin 4.0 (3.4-5.0) gm/dl Globulin 2.7 (2.5-4.0) gm/dl Albumin/Globulin Ratio 1.5 (0.9-2) Lipase 24 (11-82) U/L Urine Color Yellow Urine Appearance Clear (Clear) Urine pH 6.5 (4.5-7.5) Ur Specific [place] 1.015 (1.000-1.030) Urine Protein Negative (Negative) Urine Glucose (UA) Negative (Negative) Urine Ketones Negative (Negative) Urine Blood 2+ H (Negative) Urine Nitrite Negative (Negative) Urine Bilirubin Negative (Negative) Urine Urobilinogen Negative (Negative) Ur Leukocyte Esterase Negative (Negative) Urine WBC (Auto) 1-5 (0-5) /hpf Urine RBC (Auto) 10-30 H (0-4) /hpf U Hyaline Cast (Auto) 0 (0-5) /lpf U Epithel Cells (Auto) 0-5 (0-5) /lpf Urine Bacteria (Auto) Negative (Negative) Blood Type O Negative Antibody Screen NEGATIVE Administered Medications Discontinued Medications Sodium Chloride (Nss) 500 mls @ 999 mls/hr IV .Q31M STA Stop: 01/26/23 10:06 Last Infusion: 01/26/23 10:30 Dose: Infused Documented By: JOSE D Admin: 01/26/23 09:53 Dose: 999 mls/hr Documented By: JOSE D Ioversol (Optiray 320 500ml) 114 ml IV ONCE ONE Stop: 01/26/23 11:18 Last Admin: 01/26/23 11:17 Dose: 114 ml Documented By: GARRY Tramadol HCl (Tramadol Hcl 50 Mg Tablet) 50 mg PO NOW STA Stop: 01/26/23 09:40 Last Admin: 01/26/23 09:53 Dose: 50 mg Documented By: JOSE D Imaging Data Radiologist's Impression: Aorta w/Runoff CTA 01/26/23 09:37 CT ANGIOGRAPHY OF THE ABDOMEN AND PELVIS WITH LOWER EXTREMITY RUNOFF CLINICAL HISTORY: Left groin pain s/p Watchman proc Saturday COMPARISON STUDY: CT of the abdomen and pelvis August 29, 2018. Abdominal aortic ultrasound May 14, 2019. TECHNIQUE: Helical axial images of the abdomen and pelvis and both lower extremities were obtained during arterial phase following intravenous injection of 114 cc of Optiray 320 IV. Sagittal and coronal reconstructions were viewed as well as maximal intensity projections on an independent 3-D workstation. Automated exposure control was utilized for the study. A dose lowering technique was utilized adhering to the principles of ALARA. FINDINGS: No pneumatosis, free air or portal venous gas is present. There are calcified granulomas within the liver and spleen, adrenal glands and pancreas are unremarkable. Numerous bilateral renal cysts are noted. These were shown on prior CT. There is an 8 mm right renal calculus. There are no ureteral calculi. There is no hydronephrosis. No evidence for a bowel obstruction. No lymphadenopathy is present. A penile prosthesis is incidentally noted. There are brachytherapy seeds within the prostate. No suspicious lesions within the visualized skeletal structures are present. Left hip and bilateral knee arthroplasties are noted. The caliber of the abdominal aorta is normal. There is moderate plaque within the abdominal aorta. The branch vessels are patent. There is no aneurysm within the abdomen. There is moderate stranding within the left groin, centered on the left adductor muscles. Asymmetric enlargement and hyperdensity within the left adductor muscles represents acute intramuscular hemorrhage. There is an associated tiny 5 mm hyperdense focus on image 438. This could reflect a tiny pseudoaneurysm or arterial active extravasation. It is not clear from which vessel this arises. The left common femoral and superficial femoral arteries are patent. The bilateral popliteal arteries are patent. The bilateral calf vessels cannot be assessed on this exam as the scanner outran the bolus. A small amount of stranding within the right groin is also noted. IMPRESSION: 1. Moderate acute intramuscular hemorrhage within the left adductor muscles with small amount of adjacent hemorrhage within the left thigh. Associated 5 mm hyperdense focus which could reflect a tiny pseudoaneurysm or small focus of arterial active extravasation within the left adductor muscles. Stranding within the right groin suggestive of a small amount of hemorrhage. Findings discussed with Dr. Cid at time of dictation. 2. Normal caliber abdominal aorta with moderate atherosclerotic plaque. Patent branch vessels. Calf vessels cannot be assessed on this exam, as described above. 3. 8 mm right renal calculus. No ureteral calculi or hydronephrosis. ACT 112: Negative or not required by law. Electronically signed by: Frantz Andrew M.D. 01/26/2023 12:04 PM Discharge Plan Visit Data Chief Complaint: Swelling/Edema to Extremity Stated Complaint: LEFT LEG SWELLING ED Provider: Dong Cid Discharge Problem: Hematoma Forms Stand Alone Forms: My [facility] Prescriptions Prescriptions: No Action atorvastatin 10 mg tablet 10 mg PO QAM Qty: 90 3RF amlodipine 5 mg tablet 5 mg PO QAM Qty: 90 3RF hydrochlorothiazide 25 mg tablet 25 mg PO QAM Qty: 90 3RF lisinopril 40 mg tablet 40 mg PO QAM Qty: 90 3RF tramadol 50 mg tablet 50 mg PO TID PRN (Reason: Pain) Qty: 30 1RF Patient Comments: maybe 2-3 times per month potassium citrate 10 mEq (1,080 mg) tablet extended release 1,080 mg PO QAM Qty: 90 3RF pregabalin [Lyrica] 75 mg capsule 75 mg PO TID Qty: 240 1RF Suflave 178.7-7.3-0.5 gram recon soln See Rx Instructions PO .COMPLEX Qty: 2 0RF Rx Instructions: orally; TAKE FIRST DOSE AT 6 PM AND SECOND DOSE 6 HOURS PRIOR TO PROCEDURE BIN: [id number] PCN: CN GROUP: [id number] acetaminophen 500 mg tablet 1,000 mg PO TID PRN (Reason: Pain, Mild) Qty: 90 vitamin B complex Tablet 1 tab PO DAILY multivitamin Tablet 1 tab PO DAILY dorzolamide-timolol 22.3-6.8 mg/mL Drops 1 drp OPB BID allopurinol 300 mg tablet 300 mg PO QAM Rx Instructions: TAKE 1 TABLET EVERY MORNING Xarelto 20 mg tablet 20 mg PO QPM Rx Instructions: must administer with evening meal fluoride (sodium) [PreviDent 5000 Dry Mouth] 1.1 % paste 1 applic dental DIRECTED Referrals Referrals: Alpesh Hammond DO [Primary Care Provider] -
[2023-01-26 10:17] LABS: Basophils # (auto) 0.07 K/uL (0.00-0.20); Basophils % (auto) 0.7 %; Eosinophils # (auto) 0.22 K/uL (0.00-0.50); Eosinophils % (auto) 2.2 %; Hematocrit (blood only) 38.9 % (42.0-52.0); Hemoglobin 13.3 g/dl (14.0-18.0); Immature Granulocytes # (auto) 0.07 K/uL (0.01-0.20); Immature Granulocytes % (auto) 0.7 %; Lymphocytes % (auto) 14.9 %; Mean Corpuscular Hemoglobin 30.8 pg (25.0-34.0); Mean Corpuscular Hgb Conc 34.2 g/dL (32.0-36.0); Mean Platelet Volume 10.9 fL (9.4-12.4); Monocytes # (auto) 1.42 K/uL (0.11-0.59); Monocytes % (auto) 14.1 %; Neutrophils # (auto) 6.76 K/uL (1.40-6.50); Neutrophils % (auto) 67.4 %; Platelet Count 218 K/uL (130-400); RDW Coefficient of Variation 13.7 % (11.5-14.5); Red Blood Count 4.32 M/uL (4.70-6.10); White Blood Count 10.04 K/ul (4.8-10.8)
[2023-01-26 10:37] LABS: Albumin Globulin Ratio 1.5 (0.9-2); Bilirubin,Total 1.1 mg/dl (0.2-1.0); Calcium 9.9 mg/dl (8.6-10.3); Creatinine Clr Calc Pharmacy 136.9 ml/min; Est GFR (Non-African American) 92.3 ml/min; Globulin 2.7 gm/dl (2.5-4.0); Potassium 3.7 mmol/L (3.5-5.1); Total Protein 6.7 gm/dl (6.0-8.3)
[2023-01-26] MEDS ORDERED: OPTIRAY 320 500ml IV ONE (11:17)
--- NOTE | 2023-01-26 12:06 | CT Scan Report ---
CT ANGIOGRAPHY OF THE ABDOMEN AND PELVIS WITH LOWER EXTREMITY RUNOFF CLINICAL HISTORY: Left groin pain s/p Watchman proc Saturday COMPARISON STUDY: CT of the abdomen and pelvis August 29, 2018. Abdominal aortic ultrasound April 192019. TECHNIQUE: Helical axial images of the abdomen and pelvis and both lower extremities were obtained du ring arterial phase following intravenous injection of 114 cc of Optiray 320 IV. Sagittal and coronal reconstructions were viewed as well as maximal intensity projections on an independent 3-D workstati on. Automated exposure control was utilized for the study. A dose lowering technique was utilized ad yamile to the principles of ALARA. FINDINGS: No pneumatosis, free air or portal venous gas is present. There are calcified granulomas wi thin the liver and spleen, adrenal glands and pancreas are unremarkable. Numerous bilateral renal cys ts are noted. These were shown on prior CT. There is an 8 mm right renal calculus. There are no urete ral calculi. There is no hydronephrosis. No evidence for a bowel obstruction. No lymphadenopathy is p resent. A penile prosthesis is incidentally noted. There are brachytherapy seeds within the prostate. No suspicious lesions within the visualized skeletal structures are present. Left hip and bilateral knee arthroplasties are noted. The caliber of the abdominal aorta is normal. There is moderate plaque within the abdominal aorta. Th e branch vessels are patent. There is no aneurysm within the abdomen. There is moderate stranding wit hin the left groin, centered on the left adductor muscles. Asymmetric enlargement and hyperdensity wi thin the left adductor muscles represents acute intramuscular hemorrhage. There is an associated tiny 5 mm hyperdense focus on image 438. This could reflect a tiny pseudoaneurysm or arterial active extr avasation. It is not clear from which vessel this arises. The left common femoral and superficial fem oral arteries are patent. The bilateral popliteal arteries are patent. The bilateral calf vessels can not be assessed on this exam as the scanner outran the bolus. A small amount of stranding within the right groin is also noted. IMPRESSION: 1. Moderate acute intramuscular hemorrhage within the left adductor muscles with small amount of yesenia cent hemorrhage within the left thigh. Associated 5 mm hyperdense focus which could reflect a tiny ps eudoaneurysm or small focus of arterial active extravasation within the left adductor muscles. Strand ing within the right groin suggestive of a small amount of hemorrhage. Findings discussed with Dr. Ramu johnson at time of dictation. 2. Normal caliber abdominal aorta with moderate atherosclerotic plaque. Patent branch vessels. Calf v essels cannot be assessed on this exam, as described above. 3. 8 mm right renal calculus. No ureteral calculi or hydronephrosis. ACT 112: Negative or not required by law. Electronically signed by: Frantz Andrew M.D. 01/26/2023 12:04 PM
[2023-01-26 12:41] LABS: Appearance Urine Clear (Clear); Bacteria Urine Automated Negative (Negative); Bilirubin Urine Negative (Negative); Blood Urine 2+ (Negative); Cast Urine Automated 0 /lpf (0-5); Color Urine Yellow; Epithelial Cell Urine Auto 0-5 /lpf (0-5); Glucose Urine UA Negative (Negative); Ketones Urine Negative (Negative); Leukocyte Esterase Urine Negative (Negative); Nitrite Urine Negative (Negative); Protein Urine Negative (Negative); Specific Gravity Urine 1.015 (1.000-1.030); Urobilinogen Urine Negative (Negative); pH Urine 6.5 (4.5-7.5)
--- NOTE | 2023-01-26 14:06 | History & Physical Report ---
Date of Service January 26, 2023 Assessment & Plan (1) Hematoma: Plan: Hematoma/pseudoaneurysm at left groin access site, s/p Watchman [place] 01[place]22 [place] [facility] [place] CT[place] aorta with runoff was obtained and shows a moderate acute intramuscular hemorrhage within the left adductor muscle with a small amount of adjacent hemorrhage in the left thigh. 5 mm hyperdense focus suggestive of tiny pseudoaneurysm or small focus of extravasation was noted. Case was reviewed with Dr. Lackey/vascular w/ ER provider, in addition to [facility] [place] who noted that this was a common complication of the Watchman procedure placement with venous access. Is recommended for inpatient observation here, 48-hour hold of Xarelto, and hemoglobin trend. Xarelto held Neurovascularly intact, no evidence of compartment syndrome Hemoglobin trended.Hemoglobin 13.3 on admission. No tachycardia, BP normal Coags pending Type and screen on file, no indication for transfusion at the (2) Atrial fibrillation: Plan: Patient is in sinus with occasional bigeminy at bedside Xarelto held. Patient is aware that he has a risk of thrombosis while this is held, but currently risk of bleeding outweighs this in the setting of hematoma formed (3) Hypertension: Plan: Normotensive on admission, hydrochlorothiazide continued, lisinopril held pending surgical evaluation. Amlodipine continue (4) Hyperglycemia: Plan: Without antiglycemic agents Glucose adequately controlled at bedside Trend daily DVT prophylaxis: Pharmacal prophylaxis contraindicated, SCDs Disposition: Medical telemetry due to postprocedural bleed and history of A-fib CODE STATUS: Full code Diet: Clears (5) Presence of Watchman left atrial appendage closure device: History of Present Illness Primary Care Provider: DO Dane Aguiar is a 72-year-old male with past medical history of A-fib, atrial flutter, hyperglycemia, hypertension, hyperlipidemia who underwent Watchman procedure At [facility] on 01/22/2023. Has had 48 hours of left groin swelling and discomfort worsening over the last 2 days. He has no chest pain, chest pressure, lightheadedness, dizziness. He has resumed Xarelto with last dose yesterday e vening. Dane is seen at the bedside. He reports over the last 2 days has had increased left groin swelling in his access site with some pain and bruising along his abductor. He has had no numbness or tingling in the feet, strength is fully intact. No fever/chills or sweats. No lightheadedness or dizziness. No emy bleeding other than bruising. He has been taking his Xarelto as directed, last dose was last night. He denies chest pain, chest pressure. No shortness of breath. Overall feels well other than the localized discomfort at his left medial thigh, and notes this is a side that was manipulated less than the right; right access site feels normal with no concerns. Medical History: Reviewed Medications: Reviewed Surgical History: Reviewed Family history: Reviewed Allergies: Reviewed Social History: Non tobacco/EToh Code Status: Full Code Allergies Allergy/AdvReac Type Severity Reaction Status Date / Time benzalkonium chloride AdvReac Intermediate REDNESS Verified 01/24/23 15:15 bimatoprost AdvReac Intermediate REDNESS Verified 01/24/23 15:15 oxycodone AdvReac Mild N/V Verified 01/24/23 15:15 Home Medications Medication Instructions Recorded Confirmed Type acetaminophen 500 mg tablet 1,000 mg PO TID PRN Pain, Mild #90 10/16/18 01/26/23 History tabs dorzolamide 22.3 mg-timolol 6.8 1 drp OPB BID 04/21/20 01/26/23 History mg/mL eye drops vitamin B complex 1 tab PO DAILY 03/24/21 01/26/23 History multivitamin 1 tab PO DAILY 01/08/22 01/26/23 History allopurinol 300 mg tablet 300 mg PO QAM 06/25/22 01/26/23 History rivaroxaban 20 mg tablet (Xarelto) 20 mg PO QPM 06/25/22 01/26/23 History atorvastatin 10 mg tablet 10 mg PO QAM #90 tabs 07/06/22 01/26/23 Rx amlodipine 5 mg tablet 5 mg PO QAM #90 tabs 07/24/22 01/26/23 Rx hydrochlorothiazide 25 mg tablet 25 mg PO QAM #90 tabs 07/24/22 01/26/23 Rx lisinopril 40 mg tablet 40 mg PO QAM #90 tabs 09/06/22 01/26/23 Rx tramadol 50 mg tablet 50 mg PO TID PRN Pain #30 tabs 11/15/22 01/26/23 Rx potassium citrate 10 mEq (1,080 1,080 mg PO QAM #90 tabs 11/26/22 01/26/23 Rx mg) tablet,extended release pregabalin 75 mg capsule (Lyrica) 75 mg PO TID #240 caps 01/03/23 01/26/23 Rx peg 3350-sod sulf,[id number]-hsu-xic See Rx Instructions PO .COMPLEX #2 01/16/23 01/26/23 Rx 178.7-7.3-0.5-1.12-0.9 gram oral mL soln (Suflave) fluoride (sodium) 1.1 % dental 1 applic dental DIRECTED 01/26/23 01/26/23 History paste (PreviDent 5000 Dry Mouth) Past Med/Surg History Medical History (Updated 01/26/23 @ 14:20 by Eliud Garcia MD) Presence of Watchman left atrial appendage closure device placed 01/22/23 [facility]. History of COVID-19 01/07/22, home test, not hosp; "bad cold in my throat and head," body aches- treated with paxlovid>resolved Degenerative joint disease of left hip Morbid obesity History of prostate cancer Hx of gout Kidney stone hx Hx of atrial flutter s/p ablation 10/2018 [facility]. Follows with Dr. Ortiz. History of colon polyps Male stress incontinence Lumbar spinal stenosis Lumbar radiculopathy Dyslipidemia Glaucoma Hypertension Surgical History S/P trigger finger release History of carpal tunnel release Status post implantation of artificial urinary sphincter Hx of cystoscopy w/urethrotomy Hx of elbow surgery cubital tunnel release rt elbow History of left hip replacement (~05/2020) Hx of transurethral resection of prostate History of cardiac radiofrequency ablation 2018 (DR. ORTIZ) History of arthroscopy of right knee X 2 History of arthroscopy of left knee x2 History of cataract surgery RT/LEFT History of carpal tunnel release RT WRIST. 02/25/2018. MAC no issues. History of anesthesia reaction UNSUCCESSFUL SPINAL BLOCK FOR KNEE REPLACEMENT SURGERY History of repair of rotator cuff RIGHT History of total knee replacement BILATERAL History of herniorrhaphy INGUINAL (RIGHT) History of colonoscopy 01/2020 Repeat 3 yrs History of cystoscopy FOR BLADDER NECK SCARRING History of brachytherapy ~2001 FOR PROSTATE CANCER H/O eye surgery CORNEAL SCRAPING OF RIGHT EYE Family History Unknown No problems noted. Mother Lung cancer Hypertension Father Cancer Heart disease Hypertension Daughter Hypothyroidism Sister Hypothyroidism Other No family history of adverse response to anesthesia Denies family history of Ovarian cancer Prostate cancer Breast cancer Colorectal cancer Social History Smoking Status: Never smoker Second Hand Exposure: Yes (HX GROWING UP); Do You Dip or Chew Tobacco: No; Hx Alcohol Use: Yes Alcohol type: wine Alcohol Intake Frequency: 2-4 x/Month Alcohol Intake Frequency Comment: 1 bottle wine a week Hx Substance Use: No Preferred Language: Mexican Communication Ability: Effective Visual Impairment: Diminished Hearing Ability: Normal Business Services Officer Required: No Beliefs That Will Affect Care: None marital status: Current Living Situation: Spouse current occupational status: retired How many Children do You have: 1 Feels Safe at Home: Yes Childhood Exposure to Second-Hand Smoke: Yes (both parents smoked ) Diet: regular Diet Comment: regular caffeine: Yes (coffee tea and soda ) during the past year weight has: remained stable Dental Care, Regularly: Yes Physical Activity Frequency: 3-4 Times per Week Physical Activity Frequency Comment: [employer] 3 timea a week Seatbelt Use: always Sunscreen Use: No (wears a hat) Do you think of yourself as: straight/heterosexual Assistive Devices: Denture - Upper and Glasses Physical Exam Physical Exam: General: A&Ox3. NAD. Cooperative. HEENT: Atraumatic, normocephalic. Vision/hearing grossly Pulm: CTAB A&P. -wheezes, -rales, -rhonchi. Symmetrical chest rise. No increased work of breathing. No respiratory distress. Cardiac: RRR, with occasional bigeminy, soft SM, no rubs or gallops. radial pulses intact and symmetrical. Abdominal: Nontender, nondistended, soft. BS present. Extremities: Left medial thigh with tender ecchymoses/hematoma. PT pulse intact in lower extremities bilaterally. Cap refill brisk in extremities bilaterally. Soft touch intact in lower extremities/feet bilaterally without deficit or asymmetry. Hip flexion and ankle dorsiflexion/plantarflexion are 5/5 bilaterally Results & Data Results & Data Vital Signs (Past 12 Hours) Vital Signs Temp Pulse Pulse Resp BP BP Pulse Ox 01/26/23 13:02 66 16 127/72 97 01/26/23 10:02 66 01/26/23 09:57 98 01/26/23 09:57 68 20 117/64 96 01/26/23 09:09 36.8 C 73 18 141/75 H 96 O2 Del Method 01/26/23 13:02 01/26/23 10:02 01/26/23 09:57 Room Air 01/26/23 09:57 Room Air 01/26/23 09:09 Room Air PG Care Time/CCT Total # of Minutes Spent Total Time Spent with Patient: Total time spent is greater than 50% in coordination of care (as documented) at patient's floor/unit and/or counseling patient: Coding Level of Care Code 10883 INT INP/OBS CARE 2/55MIN Diagnoses Hematoma T14.8XXA Atrial fibrillation I48.91 Hypertension I10 Hyperglycemia R73.9 Presence of Watchman left atrial appendage closure device Z95.818
[2023-01-26] MEDS ORDERED: MoRPHine SULFATE 2 MG/ML CARP IV PRN (17:37)
[2023-01-26] MEDS: ACETAMINOPHEN 500 MG TAB PO PRN (17:59)
[2023-01-26] MEDS: traMADol HCL 50 MG TABLET PO PRN (17:59)
[2023-01-26 18:53] LABS: Hematocrit (blood only) 36.3 % (42.0-52.0); Hemoglobin 12.6 g/dl (14.0-18.0)
[2023-01-26] MEDS: PREGABALIN 75 MG CAP PO SCH (20:35)
[2023-01-26] MEDS: DORZOLAMIDE/TIMOLOL 22.3/6.8MG/ML 10 ML BTL OPB SCH (20:36)
[2023-01-27 01:59] LABS: Basophils # (auto) 0.05 K/uL (0.00-0.20); Basophils % (auto) 0.6 %; Eosinophils # (auto) 0.22 K/uL (0.00-0.50); Eosinophils % (auto) 2.4 %; Hematocrit (blood only) 34.5 % (42.0-52.0); Immature Granulocytes # (auto) 0.03 K/uL (0.01-0.20); Immature Granulocytes % (auto) 0.3 %; Lymphocytes # (auto) 1.97 K/uL (1.20-3.40); Lymphocytes % (auto) 21.9 %; Mean Corpuscular Hemoglobin 31.3 pg (25.0-34.0); Mean Corpuscular Hgb Conc 34.8 g/dL (32.0-36.0); Mean Corpuscular Volume 89.8 fL (80.0-100.0); Mean Platelet Volume 10.7 fL (9.4-12.4); Monocytes # (auto) 1.31 K/uL (0.11-0.59); Monocytes % (auto) 14.6 %; Neutrophils # (auto) 5.41 K/uL (1.40-6.50); Neutrophils % (auto) 60.2 %; Platelet Count 191 K/uL (130-400); RDW Coefficient of Variation 13.9 % (11.5-14.5); RDW Standard Deviation 45.1 fL (36.4-46.3); Red Blood Count 3.84 M/uL (4.70-6.10); White Blood Count 8.99 K/ul (4.8-10.8)
[2023-01-27] MEDS: traMADol HCL 50 MG TABLET PO PRN ×3 (01:59→21:20)
[2023-01-27] MEDS: ACETAMINOPHEN 500 MG TAB PO PRN ×3 (02:00→21:19)
[2023-01-27 02:11] LABS: BUN Creatinine Ratio 21.9 (10-20); Calcium 9.2 mg/dl (8.6-10.3); Creatinine Clr Calc Pharmacy 160.4 ml/min; Est GFR (African American) 114.2 ml/min; Est GFR (Non-African American) 98.5 ml/min; Potassium 3.5 mmol/L (3.5-5.1)
[2023-01-27] MEDS: hydroCHLOROthiazide 25 MG TAB PO SCH (08:46)
[2023-01-27] MEDS: POTASSIUM CITRATE 10 MEQ TAB PO SCH (08:47)
[2023-01-27] MEDS: ATORVASTATIN 10 MG TAB PO SCH (08:47)
[2023-01-27] MEDS: allopurinoL 300 MG TAB PO SCH (08:47)
[2023-01-27] MEDS: DORZOLAMIDE/TIMOLOL 22.3/6.8MG/ML 10 ML BTL OPB SCH ×2 (08:47→21:13)
[2023-01-27] MEDS: PREGABALIN 75 MG CAP PO SCH ×3 (08:51→21:20)
[2023-01-27] MEDS: amLODIPine BESYLATE 5 MG TAB PO SCH (09:30)
[2023-01-27 09:37] LABS: Hematocrit (blood only) 35.8 % (42.0-52.0); Hemoglobin 12.4 g/dl (14.0-18.0)
[2023-01-27 15:12] LABS: Hematocrit (blood only) 36.5 % (42.0-52.0); Hemoglobin 12.3 g/dl (14.0-18.0)
--- NOTE | 2023-01-27 19:27 | Cardiology Consultation ---
Date of Consultation January 27, 2023 Assessment & Plan (1) Hematoma: 2. Atrial fibrillation/flutter post Watchman device 3. Osteoarthritis/lumbar stenosis 4. Hypertension Reviewed patient's operative reportno arterial access on left. Only had 6 Fr sheath placed to left common femoral vein closed with [id number] stitch. Bedside ultrasound today shows no evidence of arterial injury/pseudoaneurysm. Serial hemoglobins have been stable. Patient does not require any additional intervention for his hematoma from venous access bleed. Would continue to hold anticoagulation for another 24 hours. Patient prepared that he will be bruised and sore post hematoma but reassured that low risk for any more serious complication. From a cardiovascular standpoint okay for discharge when safe to return home. Follow-up with [facility] and Dr. Ortiz. History of Present Illness Attending Physician: Barry Cramer MD History of Present Illness Mr. Brown is a very pleasant 72-year-old man seen today due to left groin complication [facility] Patient is followed by Dr. Ortiz for his cardiac care. He has a history of atrial flutter post ablation 10/2018. Recent recurrence of atrial fibrillation on Apple Watch. Due to need for maintenance NSAIDs pursued watchman. He underwent Watchman procedure on 01/22 and per patient procedure uncomplicated. Watchman device placed via right femoral vein, also had 6 Fr sheath placed to left femoral vein during procedure. Both closure sites closed with [id number]-[id number]-talxy stitch. Patient states that initially when he went home had bruising but over the next 2 days developed worsening left groin pain that made it difficult for him to walk and has resolved presented to [facility] ED yesterday. Hemodynamically stable. Hemoglobin initially 13.3. Stable on serial labs around 12.3. CTA obtained yesterday suggested intramuscular hemorrhage/hematoma involving left adductor muscles and left thigh. Per radiology question of 5 mm tiny pseudoaneurysm versus small focus of active arterial extravasation. Today states feeling about the same as when he came in. Still having difficulty lifting his leg out of bed due to pain and is now walking to bathroom with walker. Allergies Allergy/AdvReac Type Severity Reaction Status Date / Time benzalkonium chloride AdvReac Intermediate REDNESS Verified 01/24/23 15:15 bimatoprost AdvReac Intermediate REDNESS Verified 01/24/23 15:15 oxycodone AdvReac Mild N/V Verified 01/24/23 15:15 Home Medications Medication Instructions Recorded Confirmed Type acetaminophen 500 mg tablet 1,000 mg PO TID PRN Pain, Mild #90 10/16/18 01/26/23 History tabs dorzolamide 22.3 mg-timolol 6.8 1 drp OPB BID 04/21/20 01/26/23 History mg/mL eye drops vitamin B complex 1 tab PO DAILY 03/24/21 01/26/23 History multivitamin 1 tab PO DAILY 01/08/22 01/26/23 History allopurinol 300 mg tablet 300 mg PO QAM 06/25/22 01/26/23 History rivaroxaban 20 mg tablet (Xarelto) 20 mg PO QPM 06/25/22 01/26/23 History atorvastatin 10 mg tablet 10 mg PO QAM #90 tabs 07/06/22 01/26/23 Rx amlodipine 5 mg tablet 5 mg PO QAM #90 tabs 07/24/22 01/26/23 Rx hydrochlorothiazide 25 mg tablet 25 mg PO QAM #90 tabs 07/24/22 01/26/23 Rx lisinopril 40 mg tablet 40 mg PO QAM #90 tabs 09/06/22 01/26/23 Rx tramadol 50 mg tablet 50 mg PO TID PRN Pain #30 tabs 11/15/22 01/26/23 Rx potassium citrate 10 mEq (1,080 1,080 mg PO QAM #90 tabs 11/26/22 01/26/23 Rx mg) tablet,extended release pregabalin 75 mg capsule (Lyrica) 75 mg PO TID #240 caps 01/03/23 01/26/23 Rx peg 3350-sod sulf,[id number]-luh See Rx Instructions PO .COMPLEX #2 01/16/23 01/26/23 Rx 178.7-7.3-0.5-1.12-0.9 gram oral mL soln (Suflave) fluoride (sodium) 1.1 % dental 1 applic dental DIRECTED 01/26/23 01/26/23 History paste (PreviDent 5000 Dry Mouth) Patient History Medical History (Updated 01/26/23 @ 14:20 by Eliud Garcia MD) Presence of Watchman left atrial appendage closure device placed 01/22/23 [facility]. History of COVID-19 01/07/22, home test, not hosp; "bad cold in my throat and head," body aches- treated with paxlovid>resolved Degenerative joint disease of left hip Morbid obesity History of prostate cancer Hx of gout Kidney stone hx Hx of atrial flutter s/p ablation 10/2018 [facility]. Follows with Dr. Ortiz. History of colon polyps Male stress incontinence Lumbar spinal stenosis Lumbar radiculopathy Dyslipidemia Glaucoma Hypertension Surgical History S/P trigger finger release History of carpal tunnel release Status post implantation of artificial urinary sphincter Hx of cystoscopy w/urethrotomy Hx of elbow surgery cubital tunnel release rt elbow History of left hip replacement (~05/2020) Hx of transurethral resection of prostate History of cardiac radiofrequency ablation 2018 (DR. ORTIZ) History of arthroscopy of right knee X 2 History of arthroscopy of left knee x2 History of cataract surgery RT/LEFT History of carpal tunnel release RT WRIST. 02/25/2018. MAC no issues. History of anesthesia reaction UNSUCCESSFUL SPINAL BLOCK FOR KNEE REPLACEMENT SURGERY History of repair of rotator cuff RIGHT History of total knee replacement BILATERAL History of herniorrhaphy INGUINAL (RIGHT) History of colonoscopy 01/2020 Repeat 3 yrs History of cystoscopy FOR BLADDER NECK SCARRING History of brachytherapy ~2001 FOR PROSTATE CANCER H/O eye surgery CORNEAL SCRAPING OF RIGHT EYE Family History Unknown No problems noted. Mother Lung cancer Hypertension Father Cancer Heart disease Hypertension Daughter Hypothyroidism Sister Hypothyroidism Other No family history of adverse response to anesthesia Denies family history of Ovarian cancer Prostate cancer Breast cancer Colorectal cancer Social History Smoking Status: Never smoker Second Hand Exposure: Yes (HX GROWING UP); Do You Dip or Chew Tobacco: No; Hx Alcohol Use: Yes Alcohol type: wine Alcohol Intake Frequency: 2-4 x/Month Alcohol Intake Frequency Comment: 1 bottle wine a week Hx Substance Use: No Preferred Language: Bhutanese Communication Ability: Effective Visual Impairment: Diminished Hearing Ability: Normal Enrobing Machine Feeder Required: No Beliefs That Will Affect Care: None marital status: Current Living Situation: Spouse current occupational status: retired How many Children do You have: 1 Other Information That Helps Us Care for You: No Feels Safe at Home: Yes Safety Concerns: Feels Safe At This Time Childhood Exposure to Second-Hand Smoke: Yes (both parents smoked ) Diet: regular Diet Comment: regular caffeine: Yes (coffee tea and soda ) during the past year weight has: remained stable Dental Care, Regularly: Yes Physical Activity Frequency: 3-4 Times per Week Physical Activity Frequency Comment: [employer] 3 timea a week Seatbelt Use: always Sunscreen Use: No (wears a hat) Do you think of yourself as: straight/heterosexual Assistive Devices: Denture - Upper, Glasses and Walker Review of Systems Review of Systems: All systems reviewed & are unremarkable except as noted in HPI & below Physical Exam Physical Exam: General: Comfortable HEENT: Sclerae anicteric Lungs: Clear to auscultation bilaterally Cardiac: Regular rate and rhythm, no murmurs. Abdomen: Soft Neuro: Nonfocal Psych: Alert orient x3, normal affect and mood Extremities: Well perfused, no peripheral edema Diffuse ecchymosis in right groin extending down by and up along right flank. Diffuse ecchymosis along left groin extending towards scrotum and down left th igh up above inguinal ligament. No palpable hematoma. 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
--- NOTE | 2023-01-27 20:29 | Hospitalist Progress Note ---
Date of Service January 27, 2023 Assessment & Plan (1) Hematoma: Plan: Hematoma of left thigh in the adductor musculature s/p [place] [facility] [place] with runoff was obtained and shows a moderate acute intramuscular hemorrhage within the left adductor muscle with a small amount of adjacent hemorrhage in the left thigh. 5 mm hyperdense focus suggestive of tiny pseudoaneurysm or small focus of extravasation was noted. Dr Lackey from cardiology saw patient in consult. There is NO arterial pseudoaneurysm. The hematoma came about due to venous vascular access rather than arterial puncture on this side. No Rx needed per Dr Lackey. Hold Xarelto [address] Lackey. Plan - * PT consult in am since ambulation is hampered as a result of this hematoma * heat to L thigh as needed to promote resolution * elevation when in bed * hold Xarelto today - if H/H stable tomorrow then resume Xarelto 01/28 * cbc in am (2) Complication of surgery: Plan: L thigh hematoma in the setting of #3 stable see #1 above only about 1 gram drop in hemoglobin since admission (3) Presence of Watchman left atrial appendage closure device: Plan: 01/22/23 at [facility] h/o afib and aflutter see #1 above (4) Hypertension: Plan: Cont hydrochlorothiazide Cont amlodipine GUADALUPE on hold - may not need 40mg as BPs w/o the lisinopril have not been that bad follow (5) Hx of atrial flutter: (6) History of atrial fibrillation: Plan PT eval tomorrow am to ensure safe d/c for home in light of #1 above Admission and Anticipated Discharge Date Admission Date: January 26, 2023 Subjective tele stable overnight main complaint is that of L thigh pain and swelling, worst medially hard to get up OOB and hard to ambulate because of this pain eating ok drinking ok no dyspnea no chest pain no abd pain Dr Lackey from cardiology saw patient in consult --> no pseudoaneurysm of L gr oin; the hematoma was NOT due to arterial bleeding but venous bleeding Review of Systems Review of Systems: gen - no fevers cv - no orthopnea pulm - no cough GI - no N/V Physical Exam Physical Exam: gen - obese, NAD neck - no JVD mouth - MMM heart - RRR, s1 s2, no murmur lungs - CTA b/l abd - soft NT ND BS+ skin - extensive ecchymoses R upper thigh near inguinal ligament extending all the way to the right flank region; extensive ecchymoses L groin and L inguinal ligament region/abd skin fold with extension to the L medial thigh and traveling about 1/3 down thigh musculo - left thigh - particularly medially - is swollen; passive ROM of L hip causes mild pain/tenderness ext - no ankle edema, pulses 2+ b/l; femoral pulse on left 2+; no bulging, pulsating mass in L groin Results & Data Results & Data Vital Signs (Past 12 Hours) Vital Signs Temp Pulse Pulse Resp BP BP Pulse Ox 01/27/23 20:24 37.0 C 70 17 163/71 H 96 01/27/23 16:46 36.8 C 73 18 137/75 95 01/27/23 15:17 73 01/27/23 12:00 36.9 C 63 18 121/78 94 O2 Del Method 01/27/23 20:24 Room Air 01/27/23 16:46 Room Air 01/27/23 15:17 01/27/23 12:00 Room Air Laboratory Results Laboratory Results - last 24 hr 01/27/23 01/27/23 01/27/23 01:38 01:38 01:38 WBC 8.99 RBC 3.84 L Hgb Cancelled 12.0 L Hct Cancelled 34.5 L MCV 89.8 MCH 31.3 MCHC 34.8 RDW Std Deviation 45.1 RDW Coeff of Cherry 13.9 Plt Count 191 MPV 10.7 Immature Gran % (Auto) 0.3 Neut % (Auto) 60.2 Lymph % (Auto) 21.9 [place] % (Auto) 14.6 Eos % (Auto) 2.4 Baso % (Auto) 0.6 Neut # (Auto) 5.41 Lymph # (Auto) 1.97 [place] # (Auto) 1.31 H Eos # (Auto) 0.22 Baso # (Auto) 0.05 Immature Gran # (Auto) 0.03 Sodium 138 Potassium 3.5 Chloride 104 Carbon Dioxide 27 Anion Gap 7 BUN 14 Creatinine 0.64 Est Cr Clr Drug Dosing 160.4 Est GFR ( Amer) 114.2 Est GFR (Non-Af Amer) 98.5 BUN/Creatinine Ratio 21.9 H Glucose 101 H Calcium 9.2 01/27/23 01/27/23 09:26 14:40 WBC RBC Hgb 12.4 L 12.3 L Hct 35.8 L 36.5 L MCV MCH MCHC RDW Std Deviation RDW Coeff of Cherry Plt Count MPV Immature Gran % (Auto) Neut % (Auto) Lymph % (Auto) [place] % (Auto) Eos % (Auto) Baso % (Auto) Neut # (Auto) Lymph # (Auto) [place] # (Auto) Eos # (Auto) Baso # (Auto) Immature Gran # (Auto) Sodium Potassium Chloride Carbon Dioxide Anion Gap BUN Creatinine Est Cr Clr Drug Dosing Est GFR ( Amer) Est GFR (Non-Af Amer) BUN/Creatinine Ratio Glucose Calcium PG Care Time/CCT Total # of Minutes Spent Total Time Spent with Patient: Total time spent is greater than 50% in coordination of care (as documented) at patient's floor/unit and/or counseling patient: Coding Level of Care Code 13292 SUB INP/OBS CARE 2/35MIN Diagnoses Hematoma T14.8XXA Complication of surgery T81.9XXA Presence of Watchman left atrial appendage closure device Z95.818 Hypertension I10 Hx of atrial flutter Z86.79 History of atrial fibrillation Z86.79
[2023-01-28 07:21] LABS: Basophils # (auto) 0.05 K/uL (0.00-0.20); Basophils % (auto) 0.6 %; Eosinophils # (auto) 0.26 K/uL (0.00-0.50); Eosinophils % (auto) 3.2 %; Hemoglobin 12.1 g/dl (14.0-18.0); Immature Granulocytes # (auto) 0.04 K/uL (0.01-0.20); Immature Granulocytes % (auto) 0.5 %; Lymphocytes # (auto) 1.28 K/uL (1.20-3.40); Mean Corpuscular Hemoglobin 30.9 pg (25.0-34.0); Mean Corpuscular Hgb Conc 34.6 g/dL (32.0-36.0); Mean Corpuscular Volume 89.3 fL (80.0-100.0); Mean Platelet Volume 10.4 fL (9.4-12.4); Monocytes # (auto) 1.14 K/uL (0.11-0.59); Monocytes % (auto) 14.2 %; Neutrophils # (auto) 5.24 K/uL (1.40-6.50); Neutrophils % (auto) 65.5 %; Platelet Count 203 K/uL (130-400); RDW Coefficient of Variation 13.9 % (11.5-14.5); RDW Standard Deviation 44.7 fL (36.4-46.3); Red Blood Count 3.92 M/uL (4.70-6.10); White Blood Count 8.01 K/ul (4.8-10.8)
[2023-01-28 07:35] LABS: BUN Creatinine Ratio 17.1 (10-20); Creatinine Clr Calc Pharmacy 134.4 ml/min; Est GFR (African American) 106.4 ml/min; Est GFR (Non-African American) 91.8 ml/min; Potassium 3.8 mmol/L (3.5-5.1)
[2023-01-28 08:22] LABS: Magnesium 2.1 mg/dl (1.7-2.4)
[2023-01-28] MEDS: hydroCHLOROthiazide 25 MG TAB PO SCH (09:25)
[2023-01-28] MEDS: amLODIPine BESYLATE 5 MG TAB PO SCH (09:25)
[2023-01-28] MEDS: allopurinoL 300 MG TAB PO SCH (09:25)
[2023-01-28] MEDS: DORZOLAMIDE/TIMOLOL 22.3/6.8MG/ML 10 ML BTL OPB SCH (09:25)
[2023-01-28] MEDS: ATORVASTATIN 10 MG TAB PO SCH (09:25)
[2023-01-28] MEDS: POTASSIUM CITRATE 10 MEQ TAB PO SCH (09:25)
[2023-01-28] MEDS: PREGABALIN 75 MG CAP PO SCH ×2 (09:31→15:06)
[2023-01-28] MEDS: ACETAMINOPHEN 500 MG TAB PO PRN (09:31)
[2023-01-28] MEDS: traMADol HCL 50 MG TABLET PO PRN (09:31)
--- NOTE | 2023-01-28 15:26 | XCELERA ---
[id number] \\[id number]
[2023-01-28] MEDS ORDERED: POLYETHYLENE (MIRALAX) 17 GM PACK PO ONE (16:02)
[2023-01-28] MEDS ORDERED: SENNA 8.6 MG TAB PO ONE (16:03)
--- NOTE | 2023-01-28 16:16 | Discharge Summary ---
Date of Service January 28, 2023 Admission HPI Per Admitting Provider Dane is a 72-year-old male with past medical history of A-fib, atrial flutter, hyperglycemia, hypertension, hyperlipidemia who underwent Watchman procedure At [facility] on 01/22/2023. Has had 48 hours of left groin swelling and discomfort worsening over the last 2 days. He has no chest pain, chest pressure, lightheadedness, dizziness. He has resumed Xarelto with last dose yesterday evening. Dane is seen at the bedside. He reports over the last 2 days has had increased left groin swelling in his access site with some pain and bruising along his abductor. He has had no numbness or tingling in the feet, strength is fully intact. No fever/chills or sweats. No lightheadedness or dizziness. No emy bleeding other than bruising. He has been taking his Xarelto as directed, last dose was last night. He denies chest pain, chest pressure. No shortness of breath. Overall feels well other than the localized discomfort at his left medial thigh, and notes this is a side that was manipulated less than the right; right access site feels normal with no concerns. Medical History: Reviewed Medications: Reviewed Surgical History: Reviewed Family history: Reviewed Allergies: Reviewed Social History: Non tobacco/EToh Code Status: Full Code Discharge Exam gen - obese, NAD neck - no JVD mouth - MMM heart - RRR, s1 s2, no murmur lungs - CTA b/l abd - soft NT ND BS+ skin - extensive ecchymoses R upper thigh near inguinal ligament extending all the way to the right flank region; extensive ecchymoses L groin and L inguinal ligament region/abd skin fold with extension to the L medial thigh and traveling about 1/3 down thigh musculo - left thigh - particularly medially - is swollen; passive ROM of L hip causes mild pain/tenderness ext - no ankle edema, pulses 2+ b/l; femoral pulse on left 2+; no bulging, pulsating mass in L groin Discharge Data Allergies Allergy/AdvReac Type Severity Reaction Status Date / Time benzalkonium chloride AdvReac Intermediate REDNESS Verified 01/24/23 15:15 bimatoprost AdvReac Intermediate REDNESS Verified 01/24/23 15:15 oxycodone AdvReac Mild N/V Verified 01/24/23 15:15 Consultations 01/26/23 13:20 ED Decision to Admit Stat 01/26/23 13:43 Consult Cardiology Routine Ordered Studies 01/26/23 09:37 CTA abd aorta runof w con [CT ang AA runof w inc wo butch[place]] Stat Hospital Course (1) Hematoma: Hematoma of left thigh in the adductor musculature s/p Watchman placement 01/22/23 at [facility] - CTA aorta with runoff was obtained and shows a moderate acute intramuscular hemorrhage within the left adductor muscle with a small amount of adjacent hemorrhage in the left thigh. 5 mm hyperdense focus suggestive of tiny pseudoaneurysm or small focus of extravasation was noted. Dr Lackey from cardiology saw patient in consult. There is NO arterial pseudoaneurysm. The hematoma came about due to venous vascular access rather than arterial puncture on this side. No Rx needed per Dr Lackey. Hold Xarelto [address] Lackey. Plan - * PT consult in am since ambulation is hampered as a result of this hematoma * heat to L thigh as needed to promote resolution * elevation when in bed * hold Xarelto today - if H/H stable tomorrow then resume Xarelto 01/28 * cbc in am (2) Complication of surgery: L thigh hematoma in the setting of #3 stable see #1 above only about 1 gram drop in hemoglobin since admission (3) Presence of Watchman left atrial appendage closure device: 01/22/23 at [facility] h/o afib and aflutter see #1 above (4) Hypertension: Cont hydrochlorothiazide Cont amlodipine GUADALUPE on hold - may not need 40mg as BPs w/o the lisinopril have not been that bad follow (5) Hx of atrial flutter: (6) History of atrial fibrillation: Plan PT eval tomorrow am to ensure safe d/c for home in light of #1 above Discharge Plan Discharge Items Patient Disposition: Home - Self-Care Reason For Visit: Hematoma of Left leg Discharge Diagnosis: 1. Post-procedural left leg hematoma 2. NO pseudoaneurysm of left groin 3. Recent Watchman Procedure at [facility] Activity: As commented below Activity Comment: follow any activity instructions given by [facility] Lifting: No more than 10 pounds Bathing Comment: follow any previous instructions given by [facility] Exercise/Sports: Wait until after follow-up appointment Driving/Machine Use: Follow any driving restrictions, if any, given by [facility] Non-emergency contact: Primary Care Provider and Vocational Training Instructor Call non-emergency contact if: you have any medication questions, your symptoms worsen, your pain is not controlled, your pain is worsening and you have a fever Follow-up/Referrals: Zachary Ortiz MD [Physician] - 02/18/23 3:30 pm (1-2 weeks) Alpesh Hammond DO [Primary Care Provider] - 01/31/23 11:30 am Diet: Heart Healthy Addtl Attending Provider Instructions: Mr Brown, You were admitted for observation to [facility] due to a hematoma you had developed in your left leg following your recent Watchman procedure at [facility]. Fortunately your blood counts remained very stable while here indicating no ongoing bleeding in the left leg. Dr Zachary Lackey saw you in consult from [facility] Cardiology and found no pseudoaneurysm of the femoral artery of the left leg. We also performed an echocardiogram and this was largely unchanged from your previous echocardiogram done in 03/2022. Your ejection fraction (heart squeezing capacity) was normal. On heart monitoring we noted that you had a very large number of PVCs (extra beats) which you have had in the past. Dr Lackey recommends seeing Dr Ortiz in the next week or two for follow-up. At this time you may resume your Xarelto this evening upon return home. For your left thigh hematoma use a warm pack or heating pad on the inner left thigh for 20-30 minutes several times a day to help with pain/discomfort and to reduce swelling. This may also help speed up resolution of the hematoma. Be careful not to leave the heat on too long as this could cause a burn. You can use tylenol as needed for aches/pains. For constipation you can take a combination of the following [id number] medicines - * miralax one serving daily * senna 2 tablets once a day Finally, your blood pressures were decently controlled throughout the visit. This was without your usual lisinopril. I would cut the lisinopril in half and only take 20mg once daily for now. The dose can always be increased back to 40mg if needed. Return to [facility] if - * you have fevers over 100 degrees * you have any concern that the hematoma in the left leg is getting larger * you have uncontrolled pain of the left leg * you feel dizzy or lightheaded * any other concerns It was our pleasure to care for you! Pending Studies at Discharge: No Stand-Alone Forms: My [facility], Smoking Cessation Medications and DC Order Prescriptions: Continued atorvastatin 10 mg tablet 10 mg PO QAM Qty: 90 3RF amlodipine 5 mg tablet 5 mg PO QAM Qty: 90 3RF hydrochlorothiazide 25 mg tablet 25 mg PO QAM Qty: 90 3RF tramadol 50 mg tablet 50 mg PO TID PRN (Reason: Pain) Qty: 30 1RF Patient Comments: maybe 2-3 times per month potassium citrate 10 mEq (1,080 mg) tablet extended release 1,080 mg PO QAM Qty: 90 3RF pregabalin [Lyrica] 75 mg capsule 75 mg PO TID Qty: 240 1RF acetaminophen 500 mg tablet 1,000 mg PO TID PRN (Reason: Pain, Mild) Qty: 90 vitamin B complex Tablet 1 tab PO DAILY multivitamin Tablet 1 tab PO DAILY dorzolamide-timolol 22.3-6.8 mg/mL Drops 1 drp OPB BID allopurinol 300 mg tablet 300 mg PO QAM Rx Instructions: TAKE 1 TABLET EVERY MORNING Xarelto 20 mg tablet 20 mg PO QPM Rx Instructions: must administer with evening meal fluoride (sodium) [PreviDent 5000 Dry Mouth] 1.1 % paste 1 applic dental DIRECTED Changed lisinopril 40 mg tablet 20 mg PO QAM Qty: 90 3RF Discontinued Suflave 178.7-7.3-0.5 gram recon soln See Rx Instructions PO .COMPLEX Qty: 2 0RF Rx Instructions: orally; TAKE FIRST DOSE AT 6 PM AND SECOND DOSE 6 HOURS PRIOR TO PROCEDURE BIN: [id number] PCN: LILIANA GROUP: [id number] Discharge Orders: Discharge Order (Routine); Ordered 01/28/23 Ordered By: Barry Cramer Admission Data Admit Date/Time: 01/26/23 14:26 Attending Provider: Barry Cramer Admit Provider: Eliud Garcia Primary Care Provider: Alpesh Hammond Other Providers: Eliud Garcia; Zachary Lackey Coding Diagnoses Hematoma T14.8XXA Complication of surgery T81.9XXA Presence of Watchman left atrial appendage closure device Z95.818 Hypertension I10 Hx of atrial flutter Z86.79 History of atrial fibrillation Z86.79
--- OUTSIDE RECORDS SUMMARY | 2023-01-29 20:15 | External Medical Summary | Summary of Care ---
Author Name Unknown Organization [facility] Address [address] [place] [address] Phone [phone] Care Team Providers Care Cant Hooker Name Role Phone Manish Alpesh Cody DO Primary Care Provider [phone] Encounter Details Date Type Department Care Team Description 11/06/2022 Orders Only Outcomes Research Department [address] [place] [address] Love [facility] [employer] Other*[id number] Allergies Active Allergy Reactions Severity Noted Date Comments Benzalkonium Chloride Other (Please comment) Eye redness Bimatoprost Other (Please comment) 01/11/2021 Eye redness Oxycodone-Acetaminophen 08/18/2015 Nausea documented as of this encounter (statuses as of 11/06/2022) Medications Medication Sig Dispensed Refills Start Date End Date Status ALLOPURINOL 300 MG PO TABS daily 0 Active HYDROCHLOROTHIAZIDE 25 MG PO TABS 1 daily 0 Active LISINOPRIL 40 MG PO TABS 1 daily 0 Active MULTIVITAMINS PO TABS 1 daily 0 Active atorvaSTATin (LIPITOR) 10 MG Tablet Take 1 Tablet by mouth in the morning. 0 Active traMADol (ULTRAM) 50 MG Tablet Take 1 Tablet by mouth at bedtime as needed. 0 07/08/2015 Active amLODIPine (NORVASC) 5 MG Tablet Take 1 Tablet by mouth in the morning. 0 08/16/2015 Active dorzolamide (TRUSOPT OCUMETER PLUS) 2 % ophthalmic solution Instill 1 Drop into both eyes in the morning and 1 Drop before bedtime. 0 Active gabapentin (NEURONTIN) 300 MG Capsule Take 300 mg by mouth 3 times a day. 0 Active Potassium Citrate ER 10 MEQ (1080 MG) Oral Tablet Extended Release (Urocit-K) Take 1 Tab by mouth 3 times a day. 270 Tab 3 10/27/2020 Active Additional Information Patient taking differently:10 mEq OralDaily(AM), Reported on 03/30/2022 Meloxicam 7.5 MG Oral Tablet Take 1 Tablet by mouth in the morning. 0 01/07/2021 Active B Complex 100 TR Oral Tablet Extended Release Take by mouth daily. 0 Acti ve Pregabalin 75 MG Oral Capsule (Lyrica) Take 1 Capsule by mouth in the morning and 1 Capsule at noon and 1 Capsule before bedtime. 0 03/04/2022 Active documented as of this encounter (statuses as of 11/06/2022) Active Problems Problem Noted Date Spinal stenosis of lumbar region with ne urogenic claudication 05/10/2021 HTN, goal below 130/80 05/10/2021 Hyperlipidemia 05/10/2021 Gout 05/10/2021 Post-traumatic bulbous urethral strictur e 09/13/2020 Stress incontinence of urine 09/13/2020 Calculus of kidney 09/13/2020 BMI 35-39 ISOLATED (SEE ACTUAL BMI) 08/16 Overview: Per Obesity Protocol, #19 Retention of urine 09/24/2003 Overview: ICD-10 update of inactive term RENAL & URETERAL DIS NOS 09/24/2003 History of prostate cancer 12/24/2002 Overview: Treated with brachytherapy documented as of this encounter (statuses as of 11/06/2022) Immunizations Name Administration Dates Next Due COVID-19 mRNA, LNP-s, No Pre serve, 2-Dose Series (Optosecurity) 12/31/2020,06/11/2020,04/30/2020 COVID-19, LNP-s, No Preserve , Chris-sucrose, Ages 12+ (Optosecurity) 09/27/2021 documented as of this encounter Social History Tobacco Use Types Packs/Day Years Used Date Smoking Tobacco: Never Smokeless Tobacco: Never Alcohol Use Standard Drinks/Week Comments Yes 0 (1 standard drink = 0.6 oz pur e alcohol) couple per week Food Insecurity Answer Date Recorded Within the past 12 months, y ou worried that your food would run out before you got money to buy more. Never true 01/09/2021 Within the past 12 months, t he food you bought just didn't last and you didn't have money to get more. Never true 01/09/2021 Sex Assigned at Date Recorded Male 01/08/2021 9:01 PM E DT Job Start Date Occupation Industry Not on file Not on file Not on file documented as of this encounter Functional Status Functional Status Response Date of Assess ment Are you deaf or do you have serious difficulty h earing? No 05/19/2021 Are you blind or do you have serious difficulty seeing, even when wearing glasses? No 05/19/2021 Do you have serious difficul ty walking or climbing stairs? (5 years old or older) No 05/19/2021 Do you have difficulty dress ing or bathing? (5 years old or older) No 05/19/2021 Because of a physical, menta l, or emotional condition, do you have difficulty doing errands alone such as visiting a doctor s office or shopping? (15 years old or older) No 05/20/19 Cognitive Status Response Date of Assessm ent Because of a physical, menta l, or emotional condition, do you have serious difficulty concentrating, remembering, or making decisions? (5 years old or older No 05/19/2021 documented as of this encounter Plan of Treatment Upcoming Encounters Date Type Specialty Care Team Description 12/04/2022 Office Visit Urology Sandoval Valderrama MD [address] [place] [id number] Scheduled Orders Name Type Priority Associated Diagnoses Orde r Schedule MYCODE SUBSEQUENT ADULT Lab Routine [employer] Research Other*[id number] Every 6 Months for 2 Occurrences starting 11/06/2022 until 11/26/2023 Health Maintenance Due Date Last Done Comments Lipid Panel 1951 Depression Screening, Annual for Pts 12 and Over 1963 Albumin/Creatinine Ratio 11/30/1969 Hepatitis C Screening 11/30/1969 DTaP,Tdap,and Td Vaccines (1 - Tdap) 11/30/1970 Cologuard 11/30/1996 Colonoscopy 11/30/1996 Colorectal Cancer Screening 11/30/1996 Fecal Occult Blood Test 11/30/1996 Sigmoidoscopy 11/30/1996 Pneumococcal Vaccine: 65+ Years (1 - PCV) 11/30/2016 COVID-19 Vaccine (5 - Pfizer series) 11/22/2021 09/27/2021, 09/27/2021, 12/31/2020, Additional history exists Influenza Vaccine (FLU shot) (#1) 2022 01/13/2021, 01/02/2019 GFR 03/30/2023 03/30/2022, 07/2021, 05/19/2021, Additional history exists Zoster Vaccines Completed 02/21/2019, 04/2018, 08/22/2012 GARDASIL-HPV IMMUNIZATION SERIES Aged Out No longer eligible based on patient's age to complete this topic Hepatitis B Aged Out No longer eligi ble based on patient's age to complete this topic MENINGOCOCCAL (MENACTRA/MENVEO) Aged Out No longer eligible based on patient's age to complete this topic documented as of this encounter Medical Devices Implanted Type Area Personal Financial Counselor Device Identifier Shelf Expiration Date Model / Serial / Lot Artif Sphincter Balloon 61-70 - [id number] Implanted:Qty : 1 on 05/19/2021 by Morris Garcia MD at [place] [facility] [place] Left: Pelvis [employer] [id number] 01/04/2026 [id number] / / [id number] documented as of this encounter Visit Diagnoses Diagnosis [employer] Other*[id number] documented in this encounter Advance Directives Latest Code Status on File Code Status Date Activated Date Inactivated Comments Full Code 05/19/2021 1:16 PM 05/20/2021 4:34 PM Question Answer Comments Discussion of Advance Direct christopher occurred with: Not Discussed Care Teams Cant Hooker Relationship Specialty Start Date End Date Alpesh Hammond DO [address] [place] [address] PCP - General Family Medicine 08/01/20 documented as of this encounter
--- OUTSIDE RECORDS SUMMARY | 2023-01-29 20:15 | External Medical Summary | Continuity of Care Document ---
Author Name Unknown Organization [facility] Address [address] [place] [address] [phone] Care Team Providers Care Jewel Hole Cornerer Name Role Phone Alpesh Hammond Primary Care Physician [phone] Encounter [facility] [id number] Date(s): 01/22/23 - 01/23/[address] [id number] [phone] Encounter Diagnosis Paroxysmal A-fib(Discharge Diagnosis) - 01/22/23 Paroxysmal atrial fibrillation(Final) - Encounter for examination for normal comparison and control in clinical research program(Final) - Essential (primary) hypertension(Final) - Obesity, unspecified(Final) - Body mass index [BMI] 39.0-39.9, adult(Final) - Presence of artificial knee joint, bilateral(Final) - Gout, unspecified(Final) - Personal history of malignant neoplasm of prostate(Final) - Presence of left artificial hip joint(Final) - supervisor intermediates (current) use of anticoagulants(Final) - Discharge Disposition: Home or Self Care Attending Physician: MD Ferreira Sarah Admitting Physician: MD Ferreira Sarah Referring Physician: MD Ferreira Sarah Allergies, Adverse Reactions, Alerts Substance Reaction Severity Status bimatoprost 0.03% ophthalmic solution Itching of eye M ild Active Percocet 5/325 1 Active 1stomach upset Functional Status 01/23/23 History of Fall in Last 3 Months Dupree N o Presence of Secondary Diagnosis Dupree Ye s Use of Ambulatory Aid Dupree None/bedrest /nurse assist IV/Heparin Lock Fall Risk Dupree No Gait/Transferring Fall Risk Dupree Normal /bedrest/immobile Mental Status Fall Risk Dupree Oriented t o own ability Dupree Fall Risk Score 15 Dupree Fall Risk No Risk 01/23/23 ADLs Independent Facial Symmetry Symmetric Gait Steady Swallowing Difficulty None Level of Consciousness Neuro Alert Speech Pattern Clear 01/22/23 Neurological Symptoms None Hallucinations Present None Medications acetaminophen 500 mg oral tablet Start: 01/23/23 9:19:00 EST, 2 tab, PO, q6h, PRN: fever/mild pain (1-3) Start Date: 01/23/23 Status: Ordered allopurinol 300 mg oral tablet Start: 11/06/12 15:11:00, 1 tab, PO, Daily Start Date: 11/06/12 Status: Ordered amLODIPine 5 mg oral tablet Start: 08/23/15 8:36:00, 1 tab, PO, Daily Start Date: 08/23/15 Status: Ordered dorzolamide-timolol 2.23%-0.68% ophthalmic solution Start: 06/25/22 10:49:00 EDT Start Date: 06/25/22 Status: Ordered hydrochlorothiazide 25 mg oral tablet Start: 11/06/12 15:11:00, 1 tab, PO, Daily Start Date: 11/06/12 Status: Ordered Lipitor 10 mg oral tablet Start: 11/09/13 7:49:00, 1 tab, PO, Daily Start Date: 11/09/13 Status: Ordered lisinopril 40 mg oral tablet Start: 11/08/15 10:35:00, 1 tab, PO, Daily Start Date: 11/08/15 Status: Ordered Multiple Vitamins oral tablet Start: 11/06/12 15:12:00, 1 tab, PO, Daily Start Date: 11/06/12 Status: Ordered potassium citrate 10 mEq oral tablet, extended release Start: 01/30/19 10:11:00 EST, bid Start Date: 01/30/19 Status: Ordered pregabalin 75 mg oral capsule Start: 06/25/22 10:49:00 EDT Start Date: 06/25/22 Status: Ordered traMADol 50 mg oral tablet Start: 04/24/16 15:17:00 Start Date: 04/24/16 Status: Ordered Vitamin B Complex oral capsule Start: 10/05/22 14:54:00 EDT, 1 cap, PO, Daily Start Date: 10/05/22 Status: Ordered Xarelto 20 mg oral tablet Start: 06/25/22 10:49:00 EDT Start Date: 06/25/22 Status: Ordered Problem List Condition Confirmation Course Effective Dates Status H ealth Status Informant Arthritis Confirmed Active Hematuria Confirmed Active 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 Confirmed Active Right carpal tunnel syndrome Confirmed Active Osteoarthritis of shoulder Confirmed Active Cubital tunnel syndrome on right Confirmed Active Glaucoma Confirmed Active Gout Confirmed Active History of left hip replacement Confirmed Active S/p total knee replacement, bilateral Confirmed Active HTN (hypertension) Confirmed Active Knee pain 1 Confirmed Active Low back pain Confirmed Active Right lumbar radiculopathy Confirmed Active Exs-bys-xnjbnawiwct corneal dystrophy Confirmed Active Ulnar neuropathy Confirmed Active Hip osteoarthritis Confirmed Active PAF (paroxysmal atrial fibrillation) Confirmed Active Precancerous lesion 2 Confirmed Active Bilateral primary osteoarthritis of hip Confirmed Active Primary osteoarthritis of both knees Confirmed Active Left shoulder pain Confirmed Active Synovial cyst of lumbar spine Confirmed Active Trigger finger of right hand Confirmed Active Bursitis, trochanteric Confirmed Active Weight disorder Confirmed Active 1B/L 2on forehead Diagnosis Diagnosis Type Effective Dates Health Status Clinical Service Informant Paroxysmal A-fib Discharge Diagnosis 01/22/23 Non-Specified Procedures Procedure Date Related Diagnosis Body Site Status Male artificial urinary sphi ncter procedure 05/19/21 Completed TOTAL HIP ARTHROPLASTY 2020 Completed Superficial keratectomy RE 11/01/16 Completed B/L Knees (totals) 11/01/11 Comple nidhi B/L knee meniscus Complet ed Knee surgery, left Comple nidhi Prostate Completed Rotator cuff repair 2 Com pleted Tooth extraction, complete lower 3 Completed 1left 2right shoulder 3wisdom teeth Results Laboratory List Name Date Complete Blood Count w Differential (CBC w Platelets and Diff) 01/23/23 ACT, Celite, by IStat (Decating Machine Operator) (ACT CE LITE ISTAT (CATH)) 01/22/23 ACT, Celite, by IStat (Decating Machine Operator) (ACT CE LITE ISTAT (CATH)) 01/22/23 Basic Metabolic Panel 01/22/23 Complete Blood Count (CBC w Platelets) 1 03/24/22 Prothrombin Time w/ INR (PT/INR) 01/22/23 Most recent to oldest [Reference Range]: 1 2 eGFR CKD-EPI [>60 mL/min/1.73 m2] >90 mL /min/1.73 m2 (01/22/23 7:32 AM) Estimated CrCl 130.76 mL/min (01/22/23 9:02 AM) MPV [9.0-12.2 fL] 10.9 fL (01/23/23 5:02 AM) 10.9 fL (01/22/23 7:32 AM) Immature Gran% 0.4 % (01/23/23 5:02 AM) Neut% 78.5 % (01/23/23 5:02 AM) Lymph% 13.0 % (01/23/23 5:02 AM) Bradford% 7.8 % (01/23/23 5:02 AM) Baso% 0.2 % (01/23/23 5:02 AM) Eos% 0.1 % (01/23/23 5:02 AM) Immat Gran, Abs [0-0.4 K/uL] 0.05 K/uL (01/23/23:02 AM) Neut, Abs [2.0-7.7 K/uL] 9.02 K/uL *HI* (01/23/23:02 AM) Lymph, Abs [1.0-3.4 K/uL] 1.50 K/uL (01/23/23 5:02 AM) Bradford, Abs [0-1.0 K/uL] 0.90 K/uL (01/23/23 5:02 AM) Baso, Abs [0-0.1 K/uL] 0.02 K/uL (01/23/23 5:02 AM) Eos, Abs [0-0.5 K/uL] 0.01 K/uL (01/23/23 5:02 AM) Type of Diff: AUTO (01/23/23: AM) RDW [11.5-14.2 %] 13.6 % (01/23/23 5:02 AM) 13.6 % (01/22/23 7:32 AM) Anion Gap [5-14 mmol/L] 14 mmol/L (01/22/23:32 AM) BUN [6-23 mg/dL] 17 mg/dL (01/22/23 7:32 AM) Ca [8.4-10.2 mg/dL] 9.9 mg/dL (01/22/23 7:32 AM) Cl- [98-107 mmol/L] 105 mmol/L (01/22/23:32 AM) HCO3 [22-29 mmol/L] 24 mmol/L (01/22/23:32 AM) Cret [0.70-1.30 mg/dL] 0.78 mg/dL (01/22/23 AM) Glu [74-109 mg/dL] 101 mg/dL 1 (01/22/23: AM) Hct [39-48 %] 39.8 % (01/23/23: AM) 46.4 % (01/22/23 AM) Hgb [13.0-17.0 g/dL] 13.7 g/dL (01/23/23: AM) 16.6 g/dL (01/22/23: AM) INR [0.9-1.1] 1.1 2 (01/22/23 AM) K [3.5-5.1 mmol/L] 3.8 mmol/L 3 (01/22/23: AM) MCH [28-33 pg] 31.4 pg (01/23/23:02 AM) 31.4 pg (01/22/23: AM) MCHC [32-36 g/dL] 34.4 g/dL (01/23/23: AM) 35.8 g/dL (01/22/23: AM) MCV [81-96 fL] 91.1 fL (01/23/23 5:02 AM) 87.9 fL (01/22/23: AM) Na [136-145 mmol/L] 143 mmol/L (01/22/23 AM) Plts [150-350 K/uL] 192 K/uL (01/23/23 5:02 AM) 202 K/uL (01/22/23:32 AM) PT [12.0-14.2 seconds] 14.5 seconds *HI* (01/22/23 AM) RBC [4.40-5.60 M/uL] 4.37 M/uL *LOW* (01/23/23 5:02 AM) 5.28 M/uL (01/22/23: AM) ACT (Celite), POC [74-125 seconds] 280 s econds *HI* (01/22/23 10:27 AM) 268 seconds *HI* (01/22/23 10:04 AM) WBC [4.0-10.4 K/uL] 11.50 K/uL *HI* (01/23/23 5:02 AM) 6.36 K/uL (01/22/23 7:32 AM) 1Result Comment: ADA recommendation for FASTING Serum/Plasma Glucose: Normal: 70-100 mg/dL Prediabetes: 100-125 mg/dL Diabetes: 126 mg/dL or higher 2Result Comment: Suggested therapeutic range for low-intensity Coumadin therapy for venous thromboembolism is INR 2.0-3.0 (ex: atrial fibrillation, history of TIA/stroke). For high risk patients, the suggested therapeutic range is INR 2.5-3.5 (ex: mechanical prosthetic valves). 3Result Comment: HEMOLYZED SPECIMEN Radiology Reports * Exam Date Time Procedure Performing Provider Status 01/23/23 5:52 AM XR Chest 2 Views Missy Oseguera; Final Notes: (XR Chest 2 Views) Reason For Exam: Check Pacemaker/Other Device S/P Pacemaker/ICD Placement XR Chest 2 Views EXAMINATION: XR Chest 2 Views CLINICAL HISTORY: Do not raise arm above shoulder Check Pacemaker/Other Device S/P Pacemaker/ICD Placement COMPARISON: Intraoperative fluoroscopic films 01/22/2023 FINDINGS: Upright PA and lateral chest radiographs. Watchman device has been placed, not well visualized. Cardiomediastinal silhouette and pulmonary vasculature are normal. Right midlung calcified granuloma. No focal parenchymal opacity. No pleural effusion. No pneumothorax. No acute osseous abnormality. IMPRESSION: No acute abnormality. Dr. Chris Bunn is the dictating resident. Finalized reports status indicates that the attending has reviewed the images and report, and agrees with the interpretation. Preliminary report status should be regarded as NOT interpreted by the attending radiologist. Workstation ID: [id number] Final Dictated by:DO Bunn Zachary Dictated DT/TM:01/23/2023 9:07 Resident:DO Bunn Zachary Signed by:MD Zuniga Rekha Signed (Electronic Signature):01/23/2023 9:06 a * Exam Date Time Procedure Performing Provider Status 01/22/23 12:00 PM Echo BANG Structural Intervention Hollie schultz RN, Nikita; Final Notes: (Echo BANG Structural Intervention) Reason For Exam: BANG to be done during ablation Echo BANG Structural Intervention Report Signatures Finalized by Germain Phan MD on 01/25/2023 10:55 AM Promoted to Fellow by Dr. Jessy Cline DO on 01/22/2023 11:52 AM PA Act 112: No-No further action needed Summary 1. Normal left ventricular size and systolic function with no regional wall motion abnormalities. 2. Estimated ejection fraction 60-65%. 3. Normal wall motion in areas seen. 4. No pericardial effusion pre or post procedure. 5. A 24mm Watchman FLX device was deployed into the JOHANA. BANG demonstrated adequate compression and anchoring. No vladimir-device leak noted on color Doppler. 6. No prior studies for comparison. BMI: 38.78 Patient Info Name: AMY BERG Age: 72 years : 1950 Gender: Male Ht: 190 cm Wt: 140 kg BSA: 2.77 m2 HR: 60 bpm BP: 100 / 60 mmHg Exam Date: 01/22/2023 8:53 AM Exam Location: Echo Lab Patient Status: Inpatient Staff Ordering Physician: Georgina Ferreira (briana) Attending Physician: Georgina Ferreira (briana) Study Info [facility] [id number] - [id number] [phone] [id number] - Indications - BANG to be done during Ablation Procedure(s) * A complete two-dimensional transesophageal study was performed. * Complete Spectral Doppler was performed. * 3D imaging performed to further visualize and clarify anatomy and severity of disease. 3D data processing was performed online at time of acquisition. Exam Type: Echo BANG Structural Intervention Complications There were no complication prior to, during or in recovery from the transesophageal echocardiogram. Medications Sedation provided by anesthesia team. Procedure Details The patient arrived in a fasting state after obtaining informed consent. The transesophageal probe was passed into the posterior pharynx, mid-esophagus, distal esophagus, and gastric fundus. Imaging was performed at multiple levels. The patient tolerated the procedure well and there were no complications. The patient was transferred out of the examination area in satisfactory condition. Left Ventricle Normal left ventricular size and systolic function with no regional wall motion abnormalities. Estimated ejection fraction 60-65%. Normal wall motion in areas seen. No left ventricular hypertrophy. Right Ventricle Normal right ventricular size and function. Left Atrium Normal left atrial size. Right Atrium Normal right atrial size. Atrial Septum BANG guided transseptal puncture performed. Atrial Appendage A 24mm Watchman FLX device was deployed into the JOHANA. BANG demonstrated adequate compression and anchoring. No vladimir-device leak noted on color Doppler. Left atrial appendage is free of thrombus formation. Measurements of the JOHANA were performed by 2D and 3D with max diameter noted 1.7 cm. Aortic Valve The aortic valve is trileaflet and unremarkable by two-dimensional, color flow and Doppler interrogation. Pulmonic Valve Structurally unremarkable pulmonic valve with no significant flow abnormalities. Mitral Valve Mild mitral valve regurgitation. Tricuspid Valve Mild tricuspid regurgitation. Pulmonary Veins Pulmonary veins are normal by two-dimensional and color flow imaging. Pericardium/Pleural No pericardial effusion pre or post procedure. Inferior Vena Cava Normal IVC size and flow. Aorta Normal aortic root. Final Signed by:MD Phan Eric Signed (Electronic Signature):01/22/2023 8:53 a Vital Signs Most recent to oldest [Reference Range]: 1 2 3 Height 190 cm (01/22/23 7:17 AM) Patient Weight 141.5 kg (01/23/23 5:39 AM) 140 kg (01/22/23 7:17 AM) Body Mass Index 39.2 kg/m2 (01/23/23 5:39 AM) 38.78 kg/m2 (01/22/23 7:17 AM) Temperature [36.5-37.9 DegC] 36.5 DegC (01/23/23 8:00 AM) 36.5 DegC (01/23/23 4:27 AM) 36.8 DegC (01/23/23 12:17 AM) Heart Rate 59 bpm (01/23/23 8:00 AM) 54 bpm (01/23/23 4:27 AM) 52 bpm (01/23/23 12:17 AM) Respiratory Rate 16 br/min (01/23/23 8:00 AM) 16 br/min (01/23/23 4:27 AM) 16 br/min (01/23/23 12:17 AM) Blood Pressure 143/85mmHg (01/23/23 8:00 AM) 106/67mmHg (01/23/23 4:27 AM) 109/72mmHg (01/23/23 12:17 AM) Mean Blood Pressure 101 mmHg (01/23/23 8:00 AM) 79 mmHg (01/23/23 4:27 AM) 83 mmHg (01/23/23 12:17 AM) Cuff Pulse Pressure 58 mmHg (01/23/23 8:00 AM) 39 mmHg (01/23/23 4:27 AM) 37 mmHg (01/23/23 12:17 AM) BP Location # 1 Left Arm (01/23/23 4:27 AM) Left Arm (01/23/23 12:17 AM) Left Arm (01/22/23 7:45 PM) Social History Social History Type Response Smoking Status Never smoked cigaret elvin Sex Male Cardiology * Contributor_system, MUSE01: VERIFY, PERFORM Event Display: EKG Authored Date: Please click on link to see image. History and physical note * MD Ferreira Sarah: MODIFY MD Ferreira Sarah: MODIFY, MODIFY Event Display: H&P Authored Date: [id number] HISTORY AND PHYSICAL Name: AMY BERG Patient Number: [id number] : 1950 Date of Service: 01/22/2023 Chief Complaint: Pt presents for LAAO watchman device placement History of Present Illness: 72 yo man followed by Dr Ortiz referred to Dr Ferreira for PMH: AFL s/pAblation 2018, with recent onset of PAfib with RVR , HTN, obesity, significant OA with use of meloxicam . Pt was instructed to discontinue use with reinitiation of Xarelto 20 mg po Daily. He notes slight blood-tinged urine in AM with start of Xarelto and does not receive pain relief with other painagents and present for placement of watchman device to reduce higher bleeding risk with watchman device placement. [id number]/3. EF - 55% . Pt denies fever,chills,CP, syncope ,presyncope, melena, hematochezia, recent covid exposure and or symptoms . Pt held Xarelto last price and this AM. EK G- NSR 61 bpm. Review Of Systems: Pt has PAF with slight hematuria, OA which requires medication predisposing to bleeding and, A 10 point ROS was completed and all other systems are negative except what is noted inHPI. Past Medical History: OA Brachial plexus neuropathy Bursitis Carpel Tunnel Glaucoma Gout HTN Corneal dystrophy Precancerous lesion Lumbar radiculopathy s/p TKR bilat Trigger finger -R hand Ulnar neuropathy weight disorder Artificial Urinary sphincter- Urology to cath ONLY Prostate CA Procedure History Procedure Procedure Date Comments Knee surgery, left B/L knee meniscus Rotator cuff repair - right shoulder Tooth extraction, complete lower - wisdom teeth Prostate Male artificial urinary sphincter procedure 05/19/2021 TOTAL HIP ARTHROPLASTY 2020 - left Superficial keratectomy RE 11/01/2016 B/L Knees (totals) 11/01/2011 Surgical History: As Above Family History: Father- CAD Mother- Lung Ca Social History: lives with Denies tobacco, ETOH, Rec Drug use Retired- Allergies and Sensitivities: bimatoprost 0.03% ophthalmic solution(Itching of eye) Percocet 5/325 Current Home Meds: (Last Updated 12/14 11:17) allopurinol (allopurinol 300 mg oral tablet) 300 mg PO Daily amLODIPine (amLODIPine 5 mg oral tablet) 5 mg PO Daily atorvastatin (Lipitor 10 mg oral tablet) 10 mg PO Daily dorzolamide-timolol ophthalmic (dorzolamide-timolol 2.23%-0.68% ophthalmic solution) gabapentin 100 mg PO tid hydrochlorothiazide (hydrochlorothiazide 25 mg oral tablet) 25 mg PO Daily lisinopril (lisinopril 40 mg oral tablet) 40 mg PO Daily multivitamin (Multiple Vitamins oral tablet) 1 tab PO Daily multivitamin (Vitamin B Complex oral capsule) 1 cap PO Daily potassium citrate (potassium citrate 10 mEq oral tablet, extended release) bid pregabalin (pregabalin 75 mg oral capsule) rivaroxaban (Xarelto 20 mg oral tablet) traMADol (traMADol 50 mg oral tablet) Vitals: Last Updated 01/22/23 07:17 Weights: Last Updated 01/22/23 07:17 Date Temp Pulse BP RR SpO2 FIO2 Date Wt(kg) Wt(lb) 01/22 07:17 12 01/22 07:17 140.0 308 01/22 07: 140.0 308 24 Hr Tmax: No Data Available Initial Wt: 11/07 140.0 kg 308 lb Physical Exam: General: NAD, accompanied by spouse HEENT: Normocephalic, PERRLA Neck: Supple w/o carotid bruits, No JVD Cardiac: RRR, S1/S2 heart tone ,w/o M/R/G, PMI nondisplaced. Lungs: CTA bilaterally w/o wheezes or rales Abdomen: protuberant, nontender, nonpalpable organs, +bowel sounds all 4 quads, no abdominal bruits. Extremities: No clubbing cyanosis or edema noted. Radial pulses - 2 R , 2 L DP pulses- 2 R, 2 L NEURO: A & O x 3 SKIN: Warm dry ,Intact, no open lesions or rashes Most Recent 24 Hour CBC/BMP Results Per powerchart Studies: Pending or Completed in the Last 24 Hours Echo BANG Structural Intervention Ordered EKG Ordered EP Left Atrial Appendage Closure Device Ordered ASSESSMENT: 72 yo man with PAF and , slight hematuria on Xarelto 20 mg po daily ,OA with need for Meloxicam for pain relief. SEBASTIAN@[id number]- 2/Hasbled-3 , EF- 55%, Pt has desire for alternative to [facility] anticoagulation for ischemic stroke risk reduction and concomitant use of OA meds . Shared decision making with pt and family and physician for elective BANG and LAAO device placement if favorable anatomy . With General ASA ,Consents reviewed and signed . I interviewed and examined the patient with Klaudia MANZANO. I concur with the history, physical findings, assessment and recommendations as recorded above and amended by me. Georgina Ferreira MD Cardiac Electrophysiology Electronic Signature on File Electronically Reviewed/Signed by: JOSE JUAN Jeffries Author Signature Dt/Tm:01/22/2023 09:00 AM [facility], [address], [address], [place] [address] Electronically Reviewed/Signed by: Georgina Ferreira MD Cosigner Signature Dt/Tm: 01/22/2023 08:28 AM [facility], [address], [address], [place] [address] [facility] Outpt Note * JOSE JUAN Morin Michelle C: PERFORM Event Display: Outpt Note Authored Date: [id number] Name:AMY BERG Patient Number:[id number] :1950 Date of Service:01/18/2023 Electrophysiology Pre-ProcedureInstructions NPO Status:NPO after midnight for all solids the night before surgery - clear liquids (water, apple juice, Gatorade, black coffee,black tea)after midnight up until one (1) hour prior to patientarrival time EP Procedure: Left atrial appendage occlusion, Watchman with general ASA and Intra OP BANG; on Sunday January 22, [address] Ferreira Per medication instructions: Patient was advised to hold xarelto the PM of 01/21 and AM of 01/22, patient stated he only takes in the PM. Patient also advised to hold lisinopril, HCTZ, and vitamins the AM of 01/22.Ciscot verbalized understanding. Electronic Signature on File Electronically Reviewed/Signed by: JOSE JUAN Jeffries Author Signature Dt/Tm:01/18/2023 11:32 AM [facility], [address], [place] [address] [facility] Facility Discharge Instructions * JOSE JUAN Morin Michelle C: PERFORM Event Display: Facility Discharge Instructions Authored Date: [id number] AMY BERG :1950 Visit Date:01/22/2023 Facility Discharge Instructions A final Discharge Instructions document already exists on this encounter. Click the cancel button, discard changes and forward the existing Discharge Instructions to Refuse,Document to create new instructions. [facility] For medical concerns, call: . Date of Admission:01/22/2023 Date of Discharge:01/23/2023 Physician:MD Ferreira Sarah Service:Cardiology Discharge Disposition:Home or Self Care Primary Care Provider/Phone: DO HAMMOND BRIAN R (BUSINESS) [phone] (FAX BUSINESS) . Advance Directive:No Reason for Hospitalization Paroxysmal A-fib Your Diagnoses Paroxysmal A-fib My Loop App Patient Portal: [employer] makes it easy for you to manage your health information online. My [employer] is a free service that provides you instant, secure access to your medical information anytime, anywhere. Sign in or set up your account today at [facility] [place].[employer]/RegisterPatient Thank you for allowing us to assist you with your healthcare needs. If you need additional community resources, [place] [employer] can help at https://www.pa211.org. 211 can assist you in connecting with social programs based on your unique needs and locations. 211 is an anonymous search that can help you locate resources for: Food, Housing, Transportation, Goods, Education and Healthcare. Hospital Course s/p Watchman device , with bilat groins with figure 8 sutures , pt stable overnight , with L groin small golf ball size hematoma for which pressure was held last price . Pt able to ambulate,void and tolerate po at baseline . VSS, he remains Afebrile with WBC note 11. CBC stable. CXr reviewed with no effusion or pneumothorax, device noted in place. Pt received xarelto 20 mg po last price. Bilat sutures removed this am , drsg applied no hematoma or bruits, hematoma noted . L groin with slight ecchymosis. Exam on Discharge Vitals & Measurements: T:36.5C TMIN:36.4C TMAX:37.2C HR:59(Monitored) RR:16 BP:143/85 SpO2:96% Oxygen Therapy:Room air WT:141.5kg Physical Exam: General:NAD, HEENT:Normocephalic, PERRLA Neck:Supple w/o carotid bruits, No JVD Cardiac:RRR, S1/S2 heart tone ,w/o M/R/G, PMI nondisplaced. Lungs:CTA bilaterally w/o wheezes or rales Abdomen: Extremities: Femoral pulses- 2 R,2 L w/o bruits, hematoma ,drsg C/D/I sutures removed DP pulses-2 R, 2 L NEURO:A & O x 3 SKIN: Warm dry ,Intact, no open lesions or rashes Medications What How Much When Instructions Next Dose New acetaminophen (acetaminophen 500 mg oral tablet) 2 tab(s) by mouth Every 6 hours as needed for fever/mild pain (1-3) Unchanged allopurinol (allopurinol 300 mg oral tablet) 1 tab(s) by mouth Once daily Unchanged amLODIPine (amLODIPine 5 mg oral tablet) 1 tab(s) by mouth Once daily Unchanged atorvastatin (Lipitor 10 mg oral tablet) 1 tab(s) by mouth Once daily Unchanged dorzolamide-timolol ophthalmic (dorzolamide-timolol 2.23%-0.68% ophthalmic solution) Unchanged hydrochlorothiazide (hydrochlorothiazide 25 mg oral tablet) 1 tab(s) by mouth Once daily Unchanged lisinopril (lisinopril 40 mg oral tablet) 1 tab(s) by mouth Once daily Unchanged multivitamin (Multiple Vitamins oral tablet) 1 tab(s) by mouth Once daily Unchanged multivitamin (Vitamin B Complex oral capsule) 1 cap by mouth Once daily Unchanged potassium citrate (potassium citrate 10 mEq oral tablet, extended release) 2 times daily Unchanged pregabalin (pregabalin 75 mg oral capsule) Unchanged rivaroxaban (Xarelto 20 mg oral tablet) Unchanged traMADol (traMADol 50 mg oral tablet) Allergies bimatoprost 0.03% ophthalmic solution (Mild)Itching of eye Percocet 5/325 What to do next Instructions From Your Doctor Instructions From Your Doctor Left Atrial Appendage Closure Device After your procedure, you will need to take: 1)Xarelto 20 mg po Daily Xareltois a blood thinners(anticoagulant) to help prevent blood clots. Do not STOPXareltountil told to by Diesel Technician Mechanic. Medications: You have been given a closure device ID card with your discharge packet. Carry it with you at all times. It is important that all healthcare providers are aware of this device. For 6 months after a closure, you will need to takeantibioticsbefore medical or dental procedures. This helps prevent the risk of infection to the device. Always inform your other healthcare providers before having medical or dental procedures that you have this device. We have given you a white wallet card with information. Activity While the wound is healing, bleeding or swelling can occur as a result of stress or strain to the groin and abdominal muscles. Carefully follow these guidelines: On the day of discharge, limit your activities No driving for 72 hours Youmay shower after 24 hours, but no tub baths for one week You may resume your usual activities the day after discharge, including normal social activities, except: No heavy lifting of objects greater than 10 lbs for the next 3 days No strenuous physicalexercise for one week (i.e., tennis, running, golfing, weightlifting or bicycling) No sexual activity for one week No contact sports for four weeks Wound Care After the procedure, a small dressing will be applied to the wound site. You may remove the dressing the day after the procedure. Do not reapply a new dressing or band-aid. Avoid lotions, ointments, or powders at the wound site for one week. Wound Healing The healing wound should remain soft and dry. A bruise (black and blue) or a marble-sized lump may be present. Please notify your doctor or the cardiac fellow unit manager convenience stores if any of the following signs appear: Drainage from the wound A lump at the puncture site that enlarges or is larger than a marble Pain at the puncture site that makes walking difficult Numbness or tingling in the thigh or leg Calf tenderness or pain Swelling of the ankle or foot Increased area of the bruising with discoloration extending into the thigh, Over the buttock or into the groin Discoloration orcoolness of the leg or foot Misc. Continue a heart healthy, low-fat, and high fiber diet. You will find information in the packet that we give you and on internet - [employer] [place] [employer]. Increase your exercise as tolerated. You have been given printed Patient Education Instructions regarding Activity, Pain, Bleeding, Hygiene, Chest Pain, and Follow-Up. Read this information prior to leaving the hospital. This information includes phone numbers to call for answers to any questions. You have been given a printed copy procedure report.Please take your D/C Instructions and a copy of your Report with you when you go to see your physicians. If you should have any questions/concerns regarding your procedure at this institution. Please callJacy MANZANO at [phone] Follow up Cardiology appointments: Transesophageal Echo- post 45 days- 03/08/2023 @12 If you notice the following symptoms Contact our Careline at . If unable to contact your physician and you feel it is an emergency, go to the nearest Emergency Room or call 911 Diet Instructions Above Activity Instructions Above Follow-Up Appointments Scheduled Follow-Up Appointments Date/Time:Provider/Resource: Jan 09:00 Calvin De Souza Location/Instructions:[facility], [facility] Site, [address] [place] [address], [address], [place], [place] [phone] Date/Time:Provider/Resource: Feb 10:00 Calvin De Souza Location/Instructions:[facility], [facility], [facility], [address], [place], [place] [phone] Date/Time:Provider/Resource: Feb 10:00 Calvin De Souza Location/Instructions:[facility], [facility] Site, [address] [place] [address], [address], [place], [place] [phone] Date/Time:Provider/Resource: Feb 12:00 [facility] Location/Instructions:1. You may have nothing to eat or drink 6 hours prior to this appointment. 2. Please bring a list of all medications you are currently taking or bring the actual medicineswith you.3. If you are on insulin or take medications for diabetes, consult your physician as to how to handle dosing of this medication prior to the test.4. Outpatients must arrange for a family member, friend, or other individual to serve as an escort and provide transportation.5. You will be called 1 business day prior with the time of your appointment. Date/Time:Provider/Resource: DEC 22,2023 12:00 [facility] Location/Instructions: Date/Time:Provider/Resource: DEC 22,2023 12:00 pmNONSURGICAL PLACEHOLDER Location/Instructions: Tests Pending None Procedures Performed s/p DIVINA/Watchman FLX # 24 01/22/2023 Nursing Assessment Level of Consciousness Neuro: Alert Neurological Symptoms: None ADLS: Independent Basic Skin Assessment: Pale, Warm, Dry Special Instructions Common Emergency Awareness Tips Call 911 immediately if: experiencing any of the warning signs and symptoms of stroke: B.E. F.A.S.T. Balance: is there trouble with walking or coordination Eyes: is there double vision or visual loss Face: Smile, do both sides of face move equally Arm: Raise arms, do both arms move equally Speech: Is speech slurred or inappropriate Time: Time is critical, call 911 immediately Heart Attack Signs Chest discomfort: Most heart attacks involve discomfort in the center of the chest and lasts more than a few minutes, or goes away and comes back. It can feel like uncomfortable pressure, squeezing, fullness or pain. Discomfort in upper body: Symptoms can include pain or discomfort in one or both arms, back, neck, jaw or stomach. Shortness of breath: With or without discomfort. Other signs: Breaking out in a cold sweat, nausea, or lightheaded. Remember, MINUTES DO MATTER. If you experience any of these heart attack warning signs, call to get immediate medical attention! Education Materials Left Atrial Appendage Closure Device Implantation, Care After The following information offers guidance on how to care for yourself after your procedure. Your health care provider may also give you more specific instructions. If you have problems or questions, contact your health care provider. What can I expect after the procedure? After the procedure, it is common to have: Some pain, swelling, soreness, and bruising around the site where a long, thin tube (catheter) was inserted. Tiredness (fatigue). Follow these instructions at home: Medicines Take hyky-big-mzfvyjj and prescription medicines only as told by your health care provider. If you were prescribed antibiotic medicine, take it as told by your health care provider. Do not stop taking the antibiotic even if you start to feel better. You may need to take medicines to prevent blood clots. Catheter insertion area care Follow instructions from your health care provider about how to take care of the catheter insertionsite. Make sure you: Wash your hands with soap and water for at least 20 seconds before and after you change your bandage (dressing). If soap and water are not available, use hand data officer. Change your dressing as told by your health care provider. Leave stitches (sutures), skin glue, or adhesive strips in place. These skin closures may need to stay in place for 2 weeks or longer. If adhesive strip edges start to loosen and curl up, you may trim the loose edges. Do not remove adhesive strips completely unless your health care provider tells you to do that. Skin glue and adhesive strips usually fall off on their own. Check your catheter insertion area every day for signs of infection. Check for: More redness, swelling, or pain. Fluid or blood. Warmth. Pus or a bad smell. A lump or bump that may develop. Activity Do not lift anything that is heavier than 5 lb (2.3 kg), or the limit that you are told, until yourhealth care provider says that it is safe. Avoid activities that take a lot of effort (are strenuous). Ask your health care provider what activities are safe for you. Avoid sexual activity until your health care provider says that it is safe. Do not drive for the time you are told if you were given a medicine to help you relax (sedative) during the procedure. Ask your health care provider when it is safe for you to drive. Lifestyle Do not use any products that contain nicotine or tobacco. These include cigarettes, chewing tobacco, and vaping devices, such as e-cigarettes. If you need help quitting, ask your health care provider. If you drink alcohol: . Limit how much you use to: 0-1 drink a day for women. 02 drinks a day for men. Know how much alcohol is in your drink. In the [place] one drink equals one 12 oz bottle of beer (355mL), one 5 oz glass of wine (148 mL), or one 1 oz glass of hard liquor (44 mL). General instructions Do not take baths, swim, shower, or use a hot tub until your health care provider approves. Follow instructions from your health care provider about eating or drinking restrictions. You may need to follow a diet that is low in salt (sodium) and low in fat to prevent heart problems. Keep all follow-up visits. This is important. Contact a health care provider if: You have severe pain that does not get better with medicine. You have more redness, swelling, or pain around your catheter insertion site. You have fluid or blood coming from your catheter insertion area. Your catheter insertion site feels warm to the touch. You have pus or a bad smell coming from your catheter insertion area. You have a fever. You have nausea and vomiting. You develop a lump or bump in your catheter insertion area. Get help right away if: The catheter insertion area is bleeding, and the bleeding does not stop when you put steady pressure on the area. You have chest pain. You have trouble breathing. You have dizziness. You faint. You have any symptoms of a stroke. "BE FAST" is an easy way to remember the main warning signs of astroke: B - Balance. Signs are dizziness, sudden trouble walking, or loss of balance. E - Eyes. Signs are trouble seeing or a sudden change in vision. F - Face. Signs are sudden weakness or numbness of the face, or the face or eyelid drooping on one side. A - Arms. Signs are weakness or numbness in an arm. This happens suddenly and usually on one side of the body. S - Speech. Signs are sudden trouble speaking, slurred speech, or trouble understanding what peoplesay. T - Time. Time to call emergency services. Write down what time symptoms started. You have other signs of a stroke, such as: A sudden, severe headache with no known cause. Nausea or vomiting. Seizure. These symptoms may represent a serious problem that is an emergency. Do not wait to see if the symptoms will go away. Get medical help right away. Call your local emergency services (911 in the [place] Do not drive yourself to the hospital. Summary It is common to have some pain and soreness after this procedure. Check your catheter insertion area every day for signs of infection, such as more redness, swelling, or pain. Do not take baths, swim, shower, or use a hot tub until your health care provider approves. This information is not intended to replace advice given to you by your health care provider. Make sure you discuss any questions you have with your health care provider. Document Revised: 11/10/2020 Document Reviewed: 11/10/2020 [employer] Patient Education 2022 [employer] Monitored Anesthesia Care, Care After This sheet gives you information about how to care for yourself after your procedure. Your health care provider may also give you more specific instructions. If you have problems or questions, contact your health care provider. What can I expect after the procedure? After the procedure, it is common to have: Tiredness. Forgetfulness about what happened after the procedure. Impaired judgment for important decisions. Nausea or vomiting. Some difficulty with balance. Follow these instructions at home: For the time period you were told by your health care provider: Rest as needed. Do not participate in activities where you could fall or become injured. Do not drive or use machinery. Do not drink alcohol. Do not take sleeping pills or medicines that cause drowsiness. Do not make important decisions or sign legal documents. Do not take care of children on your own. Eating and drinking Follow the diet that is recommended by your health care provider. Drink enough fluid to keep your urine pale yellow. If you vomit: Drink water, juice, or soup when you can drink without vomiting. Make sure you have little or no nausea before eating solid foods. General instructions Have a responsible adult stay with you for the time you are told. It is important to have someone help care for you until you are awake and alert. Take dsrp-wnf-tieraqg and prescription medicines only as told by your health care provider. If you have sleep apnea, surgery and certain medicines can increase your risk for breathing problems. Follow instructions from your health care provider about wearing your sleep device: Anytime you are sleeping, including during daytime naps. While taking prescription pain medicines, sleeping medicines, or medicines that make you drowsy. Avoid smoking. Keep all follow-up visits as told by your health care provider. This is important. Contact a health care provider if: You keep feeling nauseous or you keep vomiting. You feel light-headed. You are still sleepy or having trouble with balance after 24 hours. You develop a rash. You have a fever. You have redness or swelling around the IV site. Get help right away if: You have trouble breathing. You have new-onset confusion at home. Summary For several hours after your procedure, you may feel tired. You may also be forgetful and have poorjudgment. Have a responsible adult stay with you for the time you are told. It is important to have someone help care for you until you are awake and alert. Rest as told. Do not drive or operate machinery. Do not drink alcohol or take sleeping pills. Get help right away if you have trouble breathing, or if you suddenly become confused. This information is not intended to replace advice given to you by your health care provider. Make sure you discuss any questions you have with your health care provider. Document Revised: 02/06/2022 Document Reviewed: 02/04/2020 [employer] Patient Education 2022 [employer] Data. * JOSE JUAN Morin Michelle C: PERFORM, MODIFY Event Display: Patient Discharge Instructions Authored Date: [id number] AMY BERG :1950 Visit Date:01/22/2023 Patient Discharge Instructions [facility] For medical concerns, call: . Date of Admission:01/22/2023 Date of Discharge:01/23/2023 Physician:MD Ferreira Sarah Service:Cardiology Discharge Disposition: . Advance Directive:No Reason for Hospitalization Paroxysmal A-fib Your Diagnoses Paroxysmal A-fib My Loop App Patient Portal: [facility] makes it easy for you to manage your health information online. [employer] [facility] App is a free service that provides you instant, secure access to your medical information anytime, anywhere. Sign in or set up your account today at [email or web address] Thank you for allowing us to assist you with your healthcare needs. If you need additional community resources, [place] [employer] can help at https://www.pa211.org. 211 can assist you in connecting with social programs based on your unique needs and locations. 211 is an anonymous search that can help you locate resources for: Food, Housing, Transportation, Goods, Education and Healthcare. Medications What How Much When Instructions Next Dose New acetaminophen (acetaminophen 500 mg oral tablet) 2 tab(s) by mouth Every 6 hours as needed for fever/mild pain (1-3) Unchanged allopurinol (allopurinol 300 mg oral tablet) 1 tab(s) by mouth Once daily Unchanged amLODIPine (amLODIPine 5 mg oral tablet) 1 tab(s) by mouth Once daily Unchanged atorvastatin (Lipitor 10 mg oral tablet) 1 tab(s) by mouth Once daily Unchanged dorzolamide-timolol ophthalmic (dorzolamide-timolol 2.23%-0.68% ophthalmic solution) Unchanged hydrochlorothiazide (hydrochlorothiazide 25 mg oral tablet) 1 tab(s) by mouth Once daily Unchanged lisinopril (lisinopril 40 mg oral tablet) 1 tab(s) by mouth Once daily Unchanged multivitamin (Multiple Vitamins oral tablet) 1 tab(s) by mouth Once daily Unchanged multivitamin (Vitamin B Complex oral capsule) 1 cap by mouth Once daily Unchanged potassium citrate (potassium citrate 10 mEq oral tablet, extended release) 2 times daily Unchanged pregabalin (pregabalin 75 mg oral capsule) Unchanged rivaroxaban (Xarelto 20 mg oral tablet) Unchanged traMADol (traMADol 50 mg oral tablet) Allergies bimatoprost 0.03% ophthalmic solution (Mild)Itching of eye Percocet 5/325 What to do next Instructions From Your Doctor Left Atrial Appendage Closure Device After your procedure, you will need to take: 1)Xarelto 20 mg po Daily Xareltois a blood thinners(anticoagulant) to help prevent blood clots. Do not STOPXareltountil told to by Diesel Technician Mechanic. Medications: You have been given a closure device ID card with your discharge packet. Carry it with you at all times. It is important that all healthcare providers are aware of this device. For 6 months after a closure, you will need to takeantibioticsbefore medical or dental procedures. This helps prevent the risk of infection to the device. Always inform your other healthcare providers before having medical or dental procedures that you have this device. We have given you a white wallet card with information. Activity While the wound is healing, bleeding or swelling can occur as a result of stress or strain to the groin and abdominal muscles. Carefully follow these guidelines: On the day of discharge, limit your activities No driving for 72 hours Youmay shower after 24 hours, but no tub baths for one week You may resume your usual activities the day after discharge, including normal social activities, except: No heavy lifting of objects greater than 10 lbs for the next 3 days No strenuous physicalexercise for one week (i.e., tennis, running, golfing, weightlifting or bicycling) No sexual activity for one week No contact sports for four weeks Wound Care After the procedure, a small dressing will be applied to the wound site. You may remove the dressing the day after the procedure. Do not reapply a new dressing or band-aid. Avoid lotions, ointments, or powders at the wound site for one week. Wound Healing The healing wound should remain soft and dry. A bruise (black and blue) or a marble-sized lump may be present. Please notify your doctor or the cardiac fellow unit manager convenience stores if any of the following signs appear: Drainage from the wound A lump at the puncture site that enlarges or is larger than a marble Pain at the puncture site that makes walking difficult Numbness or tingling in the thigh or leg Calf tenderness or pain Swelling of the ankle or foot Increased area of the bruising with discoloration extending into the thigh, Over the buttock or into the groin Discoloration orcoolness of the leg or foot Misc. Continue a heart healthy, low-fat, and high fiber diet. You will find information in the packet that we give you and on internet - [place] [employer]. Increase your exercise as tolerated. You have been given printed Patient Education Instructions regarding Activity, Pain, Bleeding, Hygiene, Chest Pain, and Follow-Up. Read this information prior to leaving the hospital. This information includes phone numbers to call for answers to any questions. You have been given a printed copy procedure report.Please take your D/C Instructions and a copy of your Report with you when you go to see your physicians. If you should have any questions/concerns regarding your procedure at this institution. Please callJacy MANZANO at [phone] Follow up Cardiology appointments: Transesophageal Echo- post 45 days- 03/08/2023 @12 If you notice the following symptoms Contact our Careline at . If unable to contact your physician and you feel it is an emergency, go to the nearest Emergency Room or call 911 Diet Instructions As ABove Activity Instructions ABove Follow-Up Appointments Scheduled Follow-Up Appointments Date/Time:Provider/Resource: Jan 11:30 amNONSURGICAL PLACEHOLDER Location/Instructions: Date/Time:Provider/Resource: Jan 09:00 Calvin De Souza Location/Instructions:[facility], [facility], [address] [place] [address], [facility], [place], [place] [phone] Date/Time:Provider/Resource: Feb 10:00 Calvin De Souza Location/Instructions:[facility], [facility], [address] [place] [address], [facility], [place], [place] [phone] Date/Time:Provider/Resource: Feb 10:00 Calvin De Souza Location/Instructions:[facility], [facility], [facility], [facility], [place], [place] [phone] Date/Time:Provider/Resource: Feb 12:00 [facility] BAGN 1 Location/Instructions:1. You may have nothing to eat or drink 6 hours prior to this appointment. 2. Please bring a list of all medications you are currently taking or bring the actual medicineswith you.3. If you are on insulin or take medications for diabetes, consult your physician as to how to handle dosing of this medication prior to the test.4. Outpatients must arrange for a family member, friend, or other individual to serve as an escort and provide transportation.5. You will be called 1 business day prior with the time of your appointment. Date/Time:Provider/Resource: DEC 22,2023 12:00 [facility] Location/Instructions: Date/Time:Provider/Resource: DEC 22,2023 12:00 pmNONSURGICAL PLACEHOLDER Location/Instructions: Tests Pending None Procedures Performed s/p LAAO/Watchman FLX # 24 01/22/2023 Special Instructions Common Emergency Awareness Tips Call 911 immediately if: experiencing any of the warning signs and symptoms of stroke: B.E. F.A.S.T. Balance: is there trouble with walking or coordination Eyes: is there double vision or visual loss Face: Smile, do both sides of face move equally Arm: Raise arms, do both arms move equally Speech: Is speech slurred or inappropriate Time: Time is critical, call 911 immediately Heart Attack Signs Chest discomfort: Most heart attacks involve discomfort in the center of the chest and lasts more than a few minutes, or goes away and comes back. It can feel like uncomfortable pressure, squeezing, fullness or pain. Discomfort in upper body: Symptoms can include pain or discomfort in one or both arms, back, neck, jaw or stomach. Shortness of breath: With or without discomfort. Other signs: Breaking out in a cold sweat, nausea, or lightheaded. Remember, MINUTES DO MATTER. If you experience any of these heart attack warning signs, call to get immediate medical attention! Patient Care team information Care Team Personnel Name: ANISH Yap, Aldo Koenig Position: Physician Dough Panner - Sports Medicine [place] Member Role: Lifetime Relationship Address: Address: [address] [facility] [address] [place] [address], [place] [address] [place] Name: DO Hammond Brian R Position: Referring Member Role: Primary Care Provider Address: Address: [facility] Physician [address] [place] [address] [place] Care Team Related Persons Name: TREMAINE BERG Address: home [address] [place] [address], [place] [id number]
--- OUTSIDE RECORDS SUMMARY | 2023-01-29 20:15 | External Medical Summary ---
Author Name Unknown Address Unknown Organization K01:[facility] [address] [place] [address] Laboratory Report Ordering Provider Test Date Status ANA JESUS 2022 11:51:48 Final Observation Date Value Abnormality Reference (Units ) Status PSA 2022 11:51:48 <0.02 <4.10 (ng/ mL) Final Performing Location [facility] [address] [place] [address]
--- OUTSIDE RECORDS SUMMARY | 2023-01-29 20:15 | External Medical Summary | Continuity of Care Document ---
Author Name Unknown Organization [address] JUDITH E Address [address] [facility] E [place] [phone] Care Team Providers Care Welfare Centre Manager Name Role Phone RadhaallysonAlpesh Primary Care Physician [phone] [id number] Date(s): 10/05/22 - 10/05/[address] JUD[place] E [facility] [place] [facility] [address] [facility] E [place] [address] [phone] Encounter Diagnosis Atrial flutter(Discharge Diagnosis) - 10/05/22 Body mass index [BMI] 38.0-38.9, adult(Discharge Diagnosis) - 10/05/22 PAF (paroxysmal atrial fibrillation)(Discharge Diagnosis) - 10/05/22 Hematuria(Discharge Diagnosis) - 10/05/22 Discharge Disposition: Home or Self Care Attending Physician: MD Ferreira Sarah Referring Physician: MD Angel, Zachary Cheney Allergies, Adverse Reactions, Alerts Substance Reaction Severity Status bimatoprost 0.03% ophthalmic solution Itching of eye M ild Active Percocet 5/325 1 Active 1stomach upset Medications allopurinol 300 mg oral tablet Start: 11/06/12 15:11:00, 1 tab, PO, Daily Start Date: 11/06/12 Status: Ordered amLODIPine 5 mg oral tablet Start: 08/23/15 8:36:00, 1 tab, PO, Daily Start Date: 08/23/15 Status: Ordered dorzolamide-timolol 2.23%-0.68% ophthalmic solution Start: 06/25/22 10:49:00 EDT Start Date: 06/25/22 Status: Ordered gabapentin Start: 10/05/22 14:55:00 EDT, 100 mg =, PO, tid Start Date: 10/05/22 Status: Ordered hydrochlorothiazide 25 mg oral tablet [...] 10:49:00 EDT Start Date: 06/25/22 Status: Ordered Mental Status 10/05/22 Barriers to Learning one year Vision imp airment, Other: glasses Mandatory Health Literacy Documentation Yes Communication Barrier Present No Health Literacy Communication Barriers N ever Primary Language Malay Problem List Condition Confirmation Course Effective Dates [...] Confirmed Active Right lumbar radiculopathy Confirmed Active [id number] corneal dystrophy Confirmed Active Ulnar neuropathy Confirmed [...] Diagnosis Diagnosis Type Effective Dates Health Status Cl inical Service Informant PAF (paroxysmal atrial fibrillation) Discharge Diagnosis 10/05/22 Hematuria Discharge Diagnosis 10/05/22 Atrial flutter Discharge Diagnosis 10/05/22 Non-Specified Body mass index [BMI] 38.0-38.9, adult Discharge Diagnosis 10/05/22 Non-Specified Procedures Procedure Date Related Diagnosis Body Site Status Male artificial urinary sphi ncter procedure 05/19/21 Completed TOTAL HIP ARTHROPLASTY 2020 Completed Superficial keratectomy RE 11/01/16 Completed B/L Knees (totals) 11/01/11 Comple nidhi B/L knee meniscus Complet ed Knee surgery, left Comple nidhi Prostate Completed Rotator cuff repair 2 Com pleted Tooth extraction, complete lower 3 Completed 1left 2right shoulder 3wisdom teeth Vital Signs Most recent to oldest [Reference Range]: 1 2 Height 190 cm (10/05/22 3:00 PM) Patient Weight 140.3 kg (10/05/22 3:00 PM) Body Mass Index 38.86 kg/m2 (10/05/22 3:00 PM) Heart Rate 61 bpm (10/05/22 2:58 PM) Respiratory Rate 18 br/min (10/05/22 2:58 PM) 18 br/min (10/05/22 2:56 PM) Blood Pressure 106/64mmHg (10/05/22 2:58 PM) Cuff Pulse Pressure 42 mmHg (10/05/22 2:58 PM) BP Location # 1 Left Arm (10/05/22 2:58 PM) Social History Social History Type Response Smoking Status Never smoked cigaret elvin Sex Male Patient Care team information Care Team Personnel Name: ANISH Yap Cory D Position: Physician Continuous Improvement Lead - Sports Medicine [place] Member Role: Lifetime Relationship Address: Address: [address] [place] [address] Name: DO Hammond Brian R Position: Referring Member Role: Primary Care Provider Address: Address: [facility] [address] [place] [address] [place] Care Team Related Persons Name: TREMAINE BERG Address: home [address] [place] [address], [place] [id number]
--- OUTSIDE RECORDS SUMMARY | 2023-01-29 20:15 | External Medical Summary | Summary of Care ---
Author Name Unknown Organization [facility] Address [address] [place] [address] Phone [phone] Care Team Providers Care Supervisor Conditioning Yard Name Role Phone Radhaallyson Alpeshcomfort Cody Primary Care Provider [phone] Reason for Visit * Reason Comments Follow Up Encounter Details Date Type Department Care Team Description 12/04/2022 Office Visit Urology, [facility] [address] [facility] [place] [address] Sandoval Valderrama MD [address] [facility] [place] [address] [place] [address] Prostate cancer (HCC)*; Kidney stone; Mixed stress and urge urinary incontinence; Stress incontinence of urine Allergies Active Allergy Reactions Severity Noted Date Comments Benzalkonium Chloride Other (Please comment) Eye redness Bimatoprost Other (Please comment) 01/11/2021 Eye redness Oxycodone-Acetaminophen 08/18/2015 Nausea documented as of this encounter (statuses as of 12/04/2022) Medications Medication Sig Dispensed Refills Start Date [...] as of this encounter (statuses as of 12/04/2022) Active Problems Problem Noted Date Spinal stenosis [...] as of this encounter (statuses as of 12/04/2022) Immunizations Name Administration Dates Next Due COVID-19 mRNA, LNP-s, No Pre serve, 2-Dose Series ([employer]) 12/31/2020,06/11/2020,04/30/2020 COVID-19, LNP-s, No Preserve , Chris-sucrose, Ages 12+ (Pfizer) 09/27/2021 documented as of this encounter Social [...] No 05/19/2021 documented as of this encounter Progress Notes * Sandoval Valderrama MD - 12/04/2022 3:36 PM EDT [id number] PCP: ALPESH HAMMOND [address] [place] [address] [phone] Ian Brown is a 72 year old male, who presents for f/u of his CAP and voiding symptoms. He notes he is pending L shoulder surgery for OA. He denies changes in his voiding. He notes occasions of low volume incontinence with exertion. KUB images demonstrating stability of the patient's right renal stone are noted. Undetectable PSA is appreciated. Gross hematuria: Present March 2022, associated with anticoagulation. Kidney stones: Stable on Urocit. KUB Aug 2020 shows right renal calculus, stable Sep 2021. Prostate cancer: Treated with brachytherapy in 2001. Undetectable PSA since, last 2020. Urinary incontinence: Known history of urethral stricture disease. Managed with Kegel's and clean intermittent catheterization previously, less effective since hip surgery. Numerous cystoscopies performed demonstrating bladder neck contracture. Bladder stone identified [id number]. He notes he was previously using 6-7 ppd before artificial urinary sphincter, worse than prior. He notes a golf game previously soak his Depends, needs to be changed mcc. He notes his voiding worsened after hip surgery, improved after AUS. Trial of penile clamp unsuccessful in the past x 2. Artificial urinary sphincter placed May 2021, no difficulties with use, down to 1 ppd. PSA Results: Lab Results Component Value Date/Time PSA - [facility] <0.02 2022 11:51 AM PSA - [facility] <0.02 10/03/2021 03:39 PM PSA - [facility] <0.02 09/21/2020 09:56 AM PSA - [facility] <0.01 01/29/2011 07:57 AM PSA - [facility] <0.01 02/03/2010 01:02 PM PSA - [facility] 0.01 01/21/2009 02:09 PM Current Outpatient Medications Medication Sig Dispense Refill ALLOPURINOL 300 MG PO TABS daily HYDROCHLOROTHIAZIDE 25 MG PO TABS 1 daily LISINOPRIL 40 MG PO TABS 1 daily MULTIVITAMINS PO TABS 1 daily atorvaSTATin (LIPITOR) 10 MG Tablet Take 1 Tablet by mouth in the morning. traMADol (ULTRAM) 50 MG Tablet Take 1 Tablet by mouth at bedtime as needed. amLODIPine (NORVASC) 5 MG Tablet Take 1 Tablet by mouth in the morning. dorzolamide (TRUSOPT OCUMETER PLUS) 2 % ophthalmic solution Instill 1 Drop into both eyes in the morning and 1 Drop before bedtime. Potassium Citrate ER 10 MEQ (1080 MG) Oral Tablet Extended Release (Urocit-K) Take 1 Tab by mouth 3times a day. (Patient taking differently: Take 1 Tablet by mouth in the morning.) 270 Tab 3 Meloxicam 7.5 MG Oral Tablet Take 1 Tablet by mouth in the morning. B Complex 100 TR Oral Tablet Extended Release Take by mouth daily. Pregabalin 75 MG Oral Capsule (Lyrica) Take 1 Capsule by mouth in the morning and 1 Capsule at noonand 1 Capsule before bedtime. gabapentin (NEURONTIN) 300 MG Capsule Take 300 mg by mouth 3 times a day. No current facility-administered medications for this visit. Review of patient's allergies indicates: Allergen Reactions Benzalkonium Chloride Other (Please comment) Eye redness Bimatoprost Other (Please comment) Eye redness Percocet [Oxycodone-Acetaminophen] Nausea Social History: Social History Tobacco Use Smoking status: Never Smokeless tobacco: Never Substance Use Topics Alcohol use: Yes Comment: couple per week Vaping/E-Cigarette Use Vaping/E-Cigarette Use Never User Vaping/E-Cigarette Substances Nicotine No Other No Flavoring No THC No Cannabidiol (CBD) No Vaping/E-Cigarette Devices Disposable No Pre-filled or Refillable Cartridge No Refillable Tank No Pre-filled Pod No Family History Problem Relation Age of Onset Lung cancer Mother Coronary Artery disease Father Heart failure Father Other (hypothyroidism) Sister Other (hypothyroidism) Daughter Past Surgical History: Procedure Laterality Date ABLATE HEART DYSRHYTHM FOCUS 2018 ARTHO,SHOUL,W/ROTATOR CUFF ARTHO,SHOUL,W/ROTATOR CUFF 2006 ARTHROPLASTY KNEE TOTAL Bilateral 2011 CARPAL TUNNEL SURGERY 2019 CATARACT SURGERY,COMPLEX COLONOSCOPY CORRECT URINE FLOW CONTROL N/A 05/19/2021 INSERTION INFLATABLE URETHRAL BLADDER NECK SPHINCTER performed by Morris Garcia MD at OR [facility] CYSTOSCOPY CYSTOSCOPY/TREATMENT OF STRICTURE N/A 01/25/2021 CYSTOURETHROSCOPY WITH CALIBRATION OR DILATION STRICTURE performed by Morris Garcia MD at OR [facility] CYSTOSCOPY/TREATMENT OF STRICTURE N/A 05/19/2021 CYSTOURETHROSCOPY WITH CALIBRATION OR DILATION STRICTURE performed by Morris Garcia MD at OR [facility] CYSTOSCOPY/URETHRA SURGERY N/A 01/25/2021 CYSTOURETHROSCOPY DIRECT VISION INTERNAL URETHROTOMY performed by Morris Garcia MD at OR [facility] [place] EXTRNL BM RADIOTHXPY TO PROST W/WO MIRNA IRRAD 2002 [place] REPAIR FIRST ABDOMINAL WALL HERNIA 2017 REVISE HIP SURGERY TO TOTAL REPLACE 2020 Past Medical History: Diagnosis Date Arthritis Atrial flutter (HCC) Chronic back pain Glaucoma Gout HTN (hypertension) Hyperlipidemia Obesity Prostate cancer (HCC) Patient Active Problem List Diagnosis Code History of prostate cancer Z85.46 Retention of urine R33.9 RENAL & URETERAL DIS NOS N28.9 BMI 35-39 ISOLATED (SEE ACTUAL BMI) E66.9 Post-traumatic bulbous urethral stricture N35.011 Stress incontinence of urine N39.3 Calculus of kidney N20.0 Spinal stenosis of lumbar region with neurogenic claudication M48.062 HTN, goal below 130/80 I10 Hyperlipidemia E78.5 Gout M10.9 Constitutional: (-) fever and (-) chills Male : see HPI Musculoskeletal: (+) joint pain, (+) hip pain/problems, and (+) shoulder pain/problems Neurology: (-) negative: no focal neurologic defect Psychiatry: (-) negative: no depression or anxiety Physical Exam Nursing note reviewed. Constitutional: General: He is not in acute distress. Appearance: Normal appearance. He is obese. He is not toxic-appearing. HENT: Head: Normocephalic and atraumatic. Right Ear: External ear normal. Left Ear: External ear normal. Nose: Nose normal. Mouth/Throat: Mouth: Mucous membranes are moist. Cardiovascular: Pulses: Normal pulses. Pulmonary: Effort: Pulmonary effort is normal. Abdominal: Palpations: Abdomen is soft. Tenderness: There is no abdominal tenderness. Musculoskeletal: Cervical back: Normal range of motion and neck supple. Lymphadenopathy: Cervical: No cervical adenopathy. Skin: Coloration: Skin is not cyanotic or pale. Neurological: Mental Status: He is alert and oriented to person, place, and time. Psychiatric: Attention and Perception: Attention normal. Mood and Affect: Mood and affect normal. Impression/Plan: 72-year-old male with stable right renal stone, improved urinary incontinence, prostate cancer with no evidence of disease times 20 years. We are pleased with the lack of detectable PSA. Patient with numerous ongoing health issues, not interested in elective stone surgery. Will plan on 1 year follow-up with PSA and KUB. Contact us sooner with any other urologic issues. Patient vocalizes good understanding of the treatment plan. Sandoval Valderrama MD 3:36 PM 12/04/2022 documented in this encounter Nursing Notes * Cierra Noonan LPN - 12/04/2022 3:23 PM EDT 8 month ret. Patient presents alone. Hx prostate cancer, kidney stones. Uses 1-2 pads per day. Meloxicam, potassium citrate documented in this encounter Plan of Treatment Upcoming Encounters Date Type Specialty Care Team Description 12/06/2023 Office Visit Urology Sandoval Valderrama MD 27 [facility] [address] [place] [address] Scheduled Orders Name Type Priority Associated Diagnoses Orde r Schedule PSA Lab Routine Prostate cancer (HCC) Expected: 11/11/2023, Expires: 12/05/2023 XR ABDOMEN 1 VIEW Medical Imaging Routine Kidney stone Expected: 11/11/2023, Expires: 01/04/2024 Health Maintenance Due Date Last Done Comments Lipid Panel 1950 Depression Screening 1963 Albumin/Creatinine Ratio 11/30/1969 Hepatitis C Screening [...] this encounter Medical Devices Implanted Type Area Director Career Device Identifier Shelf Expiration Date Model / Serial / Lot Artif Sphincter Balloon 61-70 - [id number] Implanted:Qty : 1 on 05/19/2021 by Morris Garcia MD at OR [facility] Left: Pelvis [employer] [id number] 01/04/2026 [id number] / / [id number] documented as of this encounter Visit Diagnoses Diagnosis Prostate cancer (HCC)- Primary Malignant neoplasm of prostate Kidney stone Calculus of kidney Mixed stress and urge urinary incontinence Mixed incontinence urge and stress (male)(female) Stress incontinence of urine documented in this encounter Advance Directives Latest Code Status on File Code Status Date Activated Date Inactivated Comments Full Code 05/19/2021 1:16 PM 05/20/2021 4:34 PM Question Answer Comments Discussion of Advance Direct christopher occurred with: Not Discussed Care Teams Supervisor Conditioning Yard Relationship Specialty Start Date End Date Alpesh Hammond DO [address], [place] [address] PCP - General Family Medicine 08/01/20 documented as of this encounter
--- OUTSIDE RECORDS SUMMARY | 2023-01-29 20:15 | External Medical Summary | Summary of Care ---
Author Name Unknown Organization [facility] Address [address] [place] [address] Phone [phone] Care Team Providers Care Customer Solutions Teammate Name Role Phone Alpesh Hammond DO Primary Care Provider [phone] Reason for Visit * Reason Comments Outpatient Testing Encounter Details Date Type Department Care Team Description 2022 [facility] [address] [facility] [address] Prostate cancer (HCC) Allergies Active Allergy Reactions Severity Noted Date Comments Benzalkonium Chloride Other (Please comment) Eye redness Bimatoprost Other (Please comment) 01/11/2021 Eye redness Oxycodone-Acetaminophen 08/18/2015 Nausea documented as of this encounter (statuses as of 2022) Medications Medication Sig Dispensed Refills Start Date [...] as of this encounter (statuses as of 2022) Active Problems Problem Noted Date Spinal stenosis [...] as of this encounter (statuses as of 2022) Immunizations Name Administration Dates Next Due COVID-19 mRNA, LNP-s, No Pre serve, 2-Dose Series (Solulink) 12/31/2020,06/11/2020,04/30/2020 COVID-19, LNP-s, No Preserve , Chris-sucrose, Ages 12+ (Solulink) 09/27/2021 documented as of this encounter Social [...] [address] [place] [address] [place] [id number] Pending Results Name Type Priority Associated Diagnoses Date /Time PSA Lab Routine Prostate cancer (HCC) 2022 11:51 AM EDT Health Maintenance Due Date Last Done Comments [...] this encounter Medical Devices Implanted Type Area Head Of Visual Merchandising Device Identifier Shelf Expiration Date Model / Serial / Lot Artif Sphincter Balloon 61-70 - [id number] Implanted:Qty : 1 on 05/19/2021 by Morris Garcia MD at [facility] Left: Pelvis [employer] [id number] 01/04/2026 [id number] / / [id number] documented as of this encounter Visit Diagnoses Diagnosis Prostate cancer (HCC) Malignant neoplasm of prostate documented in this encounter Advance Directives Latest Code Status on File Code Status Date Activated Date Inactivated Comments Full Code 05/19/2021 1:16 PM 05/20/2021 4:34 PM Question Answer Comments Discussion of Advance Direct christopher occurred with: Not Discussed Care Teams Customer Solutions Teammate Relationship Specialty Start Date End Date Alpesh Hammond DO [address] [facility] [address] [place] [address] [place] [address] PCP - General Family Medicine 08/01/20 documented as of this encounter
--- OUTSIDE RECORDS SUMMARY | 2023-01-29 20:15 | External Medical Summary | Continuity of Care Document ---
Author Name Unknown Organization [place] [id number] Address [address] [place] [id number] Care Team Providers Care Oil Pumper Name Role Phone Alpesh Hammond Primary Care Physician [phone] Encounter [facility] [id number] Date(s): 08/17/22 - 08/17/22 [facility] Forever [address] [employer] [facility] [address] [facility] Medicine [address] [place] [id number] Encounter Diagnosis Left shoulder pain(Discharge Diagnosis) - 08/17/22 Discharge Disposition: Home or Self Care Attending Physician: ANISH Yap Cory D Allergies, Adverse Reactions, Alerts Substance Reaction Severity Status bimatoprost 0.03% ophthalmic solution Itching of eye M ild Active Percocet 325 1 Active 1stomach upset Assessment and Plan Extracted from: Title:Clinical Document Author:ANISH Yap C ory D Date:08/17/22 OUTPATIENT NOTE Name: AMY BERG Patient Number:[id number] : 1950 Date of Service: 08/17/2022 Chief complaint: Left shoulder pain HPI: This 71-year-old male presents today for evaluation of his left shoulder. He notes a 2 to 3-year history of intermittent left shoulder pain. He states it waxes and wanes. He denies any known injury recently that caused it to flare. He has had pain for about 2 weeks. He is having difficulty with sleeping. Pain is worse with motion. He does note some loss of motion. He has been doing his rotator cuff exercises from his right shoulder. He states they are helping at times. He is hoping for a cortisone injection today. He states he does not have time for surgery this summer, but suspects that he will need it in the fall. He has a history of right rotator cuff repair and states this feels similar. No numbness or tingling. No other complaints. He denies any diabetes history. Physical exam: General: Well-developed, well-nourished, elderly male, in no acute distress. Sitting in a chair. Alert and oriented. Large individual. Skin: Warm and dry with good turgor. No rashes or lesions. No ecchymosis or erythema on the shoulder. No edema. Musculoskeletal: Left shoulder evaluation reveals no obvious asymmetry or deformity. He has limitation with motion. Full forward flexion as long as he raises his arm close to his body. He has significant difficulty with a straight arm position. Abduction of only around 80 degrees. External rotation of around 20 degrees with his elbow at the side. Behind the back reaching to his back pocket and lower lumbar spine without difficulty. He has pain associated with Guillermo testing, Neer impingement testing, and empty can testing. There is significant weakness with empty can and Guillermo testing. He has full elbow and wrist range of motion. There is focal discomfort with palpation over the proximal biceps tendon. There is also pain with palpation over the cuff insertion. He denies discomfort with palpation over the posterior rotator cuff musculature. No pain over the AC joint. Neurologic: Gross sensation is intact across the left arm by soft touch. Peripheral pulses are 2+. Data: Radiographic imaging obtained today of the left shoulder was interpreted by me and read by radiology. He has arthritic changes of the glenohumeral joint with joint space narrowing, subchondral sclerosis, and osteophytes. No evidence of calcific tendinopathy. No significant subacromial impingement. 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 Conservative care measures were discussed. Option of doing nothing, oral NSAIDs, physical therapy, cortisone injection, and further imaging using MRI was discussed. He is already taking meloxicam and has been doing a home exercise program without improvement. He would prefer to have a cortisone injection now, and consider MRI imaging in the future if his symptoms do not improve. I think it is reasonable. Continue with his cuff program at home. Call with any other concerns. Procedure: Informed verbal consent was obtained for ministration of a cortisone injection. A timeout was taken with nurse John in the room and the left shoulder was confirmed with the patient. He was seated in a chair with his arm across his abdomen. A posterior lateral approach was used. Bony landmarks were identified and the posterior glenohumeral joint was identified and marked. Skin was cleansed Betadine x2 and alcohol swab x1. Skin was anesthetized using ethyl chloride spray. A syringe of 1ml 1% plain lidocaine, 1 mL 0.5% plain Marcaine, and 2 mL Depo- Medrol (40 mg/mL) was injected sterilely from a posterior lateral approach. Free flow was obtained. The patient tolerated the procedure very well. Hemostasis was achieved with a Band-Aid. This dictation has been completed using ModuleQ text voice recognition software. Grammatical errors, omissions, insertions, and misspellings may be present due to the limitations of the software. Medications allopurinol 300 mg oral tablet Start: 11/06/12 15:11:00, 1 tab, PO, Daily Start Date: 11/06/12 Status: Ordered amLODIPine 5 mg oral tablet Start: 08/23/15 8:36:00, 1 tab, PO, Daily Start Date: 08/23/15 Status: Ordered dorzolamide 2% ophthalmic solution Start: 11/12/17 15:11:00 EDT, 1 drop, right eye, tid Start Date: 11/12/17 Status: Ordered dorzolamide-timolol 2.23%-0.68% ophthalmic solution Start: 06/25/22 10:49:00 EDT Start Date: 06/25/22 Status: Ordered gabapentin 300 mg oral capsule Start: 11/29/17 10:21:00 EDT, 1 cap, PO, bid Start Date: 11/29/17 Status: Ordered hydrochlorothiazide 25 mg oral tablet Start: 11/06/12 15:11:00, 1 tab, PO, Daily Start Date: 11/06/12 Status: Ordered Lipitor 10 mg oral tablet Start: 11/09/13 7:49:00, 1 tab, PO, Daily Start Date: 11/09/13 Status: Ordered lisinopril 40 mg oral tablet Start: 11/08/15 10:35:00, 1 tab, PO, Daily Start Date: 11/08/15 Status: Ordered meloxicam 7.5 mg oral tablet Start: 12/15/18 8:19:00 EDT, 1 tab, PO, Daily Start Date: 12/15/18 Status: Ordered Multiple Vitamins oral tablet Start: [...] 15:17:00 Start Date: 04/24/16 Status: Ordered Vitamin B12 Start: 12/12/20 8:25:00 EDT Start Date: 12/12/20 Status: Ordered Xarelto 20 mg oral tablet Start: 06/25/22 10:49:00 EDT Start Date: 06/25/22 Status: Ordered Mental Status 08/17/22 Barriers to Learning one year None evide nt Mandatory Health Literacy Documentation Yes Health Literacy Communication Barriers N ever Primary Language Tajik Problem List Condition Confirmation Course Effective Dates Status H ealth Status Informant Arthritis Confirmed Active Brachial plexus neuropathy of right [...] Confirmed Active Right lumbar radiculopathy Confirmed Active Woy-bep-driibetalsc corneal dystrophy Confirmed Active Ulnar neuropathy Confirmed Active Hip osteoarthritis Confirmed Active Precancerous lesion 2 Confirmed Active Bilateral primary osteoarthritis of hip Confirmed Active Primary osteoarthritis of both knees Confirmed Active Left shoulder pain Confirmed Active Synovial cyst of lumbar spine Confirmed Active Trigger finger of right hand Confirmed Active Bursitis, trochanteric Confirmed Active Weight disorder Confirmed Active 1B/L 2on forehead Diagnosis Diagnosis Type Effective Dates Health Status Cl inical Service Informant Left shoulder pain Discharge Diagnosis 08/17/22 Procedures Procedure Date Related Diagnosis Body Site Status Male artificial urinary sphi ncter procedure 05/19/21 Completed TOTAL HIP ARTHROPLASTY 2020 Completed Superficial keratectomy RE 11/01/16 Completed B/L Knees (totals) 11/01/11 Comple nidhi B/L knee meniscus Complet ed Knee surgery, left Comple nidhi Prostate Completed Rotator cuff repair 2 Com pleted Tooth extraction, complete lower 3 Completed 1left 2right shoulder 3wisdom teeth Social History Social History Type Response Smoking Status Never smoked cigaret elvin Sex Male Outpatient Note * ANISH Yap, Aldo Koenig: PERFORM Event Display: .Outpt Note Authored Date: OUTPATIENT NOTE Name: AMY BERG Patient Number:1 [id number] : 1950 Date of Service: 08/17/2022 Chief complaint: Left shoulder pain HPI: This 71-year-old male presents today for evaluation of his left shoulder. He notes a 2 to 3-year history of intermittent left shoulder pain. He states it waxes and wanes. He denies any known injury recently that caused it to flare. He has had pain for about 2 weeks. He is having difficulty with sleeping. Pain is worse with motion. He does note some loss of motion. He has been doing his rotator cuff exercises from his right shoulder. He states they are helping at times. He is hoping for a cortisone injection today. He states he does not have time for surgery this summer, but suspects thathe will need it in the fall. He has a history of right rotator cuff repair and states this feels similar. No numbness or tingling. No other complaints. He denies any diabetes history. Physical exam: General: Well-developed, well-nourished, elderly male, in no acute distress. Sitting in a chair. Alert and oriented. Large individual. Skin: Warm and dry with good turgor. No rashes or lesions. No ecchymosis or erythema on the shoulder. No edema. Musculoskeletal: Left shoulder evaluation reveals no obvious asymmetry or deformity. He has limitation with motion. Full forward flexion as long as he raises his arm close to his body. He has significant difficulty with a straight arm position. Abduction of only around 80 degrees. External rotationof around 20 degrees with his elbow at the side. Behind the back reaching to his back pocket and lower lumbar spine without difficulty. He has pain associated with Guillermo testing, Neer impingement testing, and empty can testing. There is significant weakness with empty can and Guillermo testing. He has full elbow and wrist range of motion. There is focal discomfort with palpation over the proximalbiceps tendon. There is also pain with palpation over the cuff insertion. He denies discomfort withpalpation over the posterior rotator cuff musculature. No pain over the AC joint. Neurologic: Gross sensation is intact across the left arm by soft touch. Peripheral pulses are 2+. Data: Radiographic imaging obtained today of the left shoulder was interpreted by me and read by radiology. He has arthritic changes of the glenohumeral joint with joint space narrowing, subchondral sclerosis, and osteophytes. No evidence of calcific tendinopathy. No significant subacromial impingement. 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 Conservative care measures were discussed. Option of doing nothing, oral NSAIDs, physical therapy, cortisone injection, and further imaging using MRI was discussed. He is already taking meloxicam and has been doing a home exercise program without improvement. He would prefer to have a cortisone injection now, and consider MRI imaging in the future if his symptoms do not improve. I think it is reasonable. Continue with his cuff program at home. Call with any other concerns. Procedure: Informed verbal consent was obtained for ministration of a cortisone injection. A timeout was taken with nurse Lopez in the room and the left shoulder was confirmed with the patient. He was seated in a chair with his arm across his abdomen. A posterior lateral approach was used. Bonylandmarks were identified and the posterior glenohumeral joint was identified and marked. Skin was cleansed Betadine x2 and alcohol swab x1. Skin was anesthetized using ethyl chloride spray. A syringe of 1ml 1% plain lidocaine, 1 mL 0.5% plain Marcaine, and 2 mL Depo-Medrol (40 mg/mL) was injected sterilely from a posterior lateral approach. Free flow was obtained. The patient tolerated the procedure very well. Hemostasis was achieved with a Band-Aid. This dictation has been completed using ModuleQ text voice recognition software. Grammatical errors, omissions, insertions, and misspellings may be present due to the limitations of the software. Electronic Signature on File Electronically Reviewed/Signed by: Aldo Yap PA-C Author Signature Dt/Tm:08/17/2022 05:31 PM Division of Sports Medicine Electronically Reviewed/Signed by: Herrera Garza MD Cosigner Signature Dt/Tm: 08/18/2022 05:58 AM Make Up Operator Helper for Clinical Affairs, [facility]ydia Professor in Orthopaedics Registered Nurse First Assistant, [facility] Sports [facility] CDS Patient Care team information Care Team Personnel Name: ANISH Yap Cory D Position: Physician Internet Marketing Coordinator - Sports Medicine [place] Member Role: Lifetime Relationship Address: Address: [address] [place] [address] [place] Name: DO Hammond Brian R Position: Referring Member Role: Primary Care Provider Address: Address: [facility] [address] [place] [address] Care Team Related Persons Name: TREMAINE BERG Address: [address], [place] [id number]
--- OUTSIDE RECORDS SUMMARY | 2023-01-29 20:15 | External Medical Summary | Continuity of Care Document ---
Author Name Unknown Organization [address] JUDITH E Address [address] [facility] E JACQUELINE FOX [id number] Care Team Providers Care Bung Sewer Name Role Phone RadhaallysonAlpesh Primary Care Physician [phone] [facility] [id number] Date(s): 10/05/22 - 10/05/[address] JUDITH E [facility] [address] [facility] [address] [facility], [facility] E JACQUELINE Fox [address] [phone] Encounter Diagnosis Atrial flutter(Discharge Diagnosis) - 10/05/22 [...] Literacy Communication Barriers N ever Primary Language Bengali Problem List Condition Confirmation Course Effective Dates [...] Confirmed Active Right lumbar radiculopathy Confirmed Active Syo-pef-jvskehajtml corneal dystrophy Confirmed Active Ulnar neuropathy Confirmed [...] Name: ANISH Yap Cory D Position: Physician Modern Languages Professor - Sports Medicine [place] Member Role: Lifetime Relationship Address: Address: [address] [place] [address] Name: DO Hammond Brian R Position: Referring Member Role: Primary Care Provider Address: Address: [facility] [address] [facility] [place] [address] [place] Care Team Related Persons Name: TREMAINE BERG Address: home [address] [place] [address], [place] [phone]
--- OUTSIDE RECORDS SUMMARY | 2023-01-29 20:15 | External Medical Summary | Continuity of Care Document ---
Author Name Unknown Organization [place] [id number] Address [address] [place] [phone] Care Team Providers Care Petroleum Products Sales Representative Name Role Phone Alpesh Hammond Primary Care Physician [phone] Encounter [facility] [id number] Date(s): 12/14/22 - 12/14/22 [facility] [address] [employer] [place] [id number] [address] [place] [id number] Encounter Diagnosis Unspecified injury of muscle, fascia and tendon of the posterior muscle group at thigh level, rightthigh, initial encounter(Discharge Diagnosis) - 12/14/22 Degenerative joint disease of right hip(Discharge Diagnosis) - 12/14/22 Discharge Disposition: Home or Self Care Attending Physician: ANISH Yap, Aldo Koenig Allergies, Adverse Reactions, Alerts Substance Reaction Severity [...] Ordered hydrochlorothiazide 25 mg oral tablet Start: 08/22/13 15:11:00, 1 tab, PO, Daily Start Date: [...] Start Date: 06/25/22 Status: Ordered Mental Status 12/14/22 Barriers to Learning one year Vision imp airment, Other: glasses Mandatory Health Literacy Documentation Yes Health Literacy Communication Barriers N ever Primary Language Lebanese Problem List Condition Confirmation Course Effective Dates [...] Confirmed Active Right lumbar radiculopathy Confirmed Active Aio-uyf-rfnvegwtozk corneal dystrophy Confirmed Active Ulnar neuropathy Confirmed [...] Effective Dates Health Status Clinical Service Informant Unspecified injury of muscle, fascia and tendon of the posterior muscle group at thigh level, right thigh, initial encounter Discharge Diagnosis 12/14/22 Degenerative joint disease of right hip Discharge Diagnosis 12/14/22 Procedures Procedure Date Related Diagnosis Body Site [...] Name: ANISH Yap Cory D Position: Physician Railroad Detective - Sports Medicine [place] Member Role: Lifetime Relationship Address: Address: [address] [place] [id number] Name: DO Hammond Brian R Position: Referring Member Role: Primary Care Provider Address: Address: [facility] [place] [address] [place] Care Team Related Persons Name: TREMAINE BERG Address: home [address] [place] [address], [place] [phone]
== END 2023-01-28 17:50 | disposition home or self-care (01) ==
LOC: 2S 09:02 → ED 09:02 → SUATTDRO 14:26 → 2S 16:45

== ENCOUNTER 2024-04-08 05:15 | Inpatient (IN) ==
--- NOTE | 2024-02-20 15:21 | PAT Medication Instructions ---
Medication Instructions Date of Service February 20, 2024 Home Medications Medication Instructions Recorded allopurinol 300 mg tablet 300 mg PO QAM #90 tabs 06/26/23 atorvastatin 10 mg tablet 10 mg PO QAM #90 tabs 07/04/23 amlodipine 5 mg tablet 5 mg PO QAM #90 tabs 08/08/23 hydrochlorothiazide 25 mg tablet 25 mg PO QAM #90 tabs 08/21/23 lisinopril 40 mg tablet 40 mg PO QAM #90 tabs 09/23/23 pregabalin 75 mg capsule (Lyrica) 75 mg PO TID #240 caps 11/12/23 potassium citrate 10 mEq (1,080 10 meq PO QAM #100 tabs 01/14/24 mg) tablet,extended release tramadol 50 mg tablet 50 mg PO TID PRN Pain #30 tabs 01/27/24 Medication List: acetaminophen 500 mg tablet 1,000 mg PO TID PRN Pain, Mild dorzolamide 22.3 mg-timolol 6.8 mg/mL eye drops 1 drp OPB BID vitamin B complex 1 tab PO DAILY multivitamin 1 tab PO DAILY fluoride (sodium) 1.1 % dental paste (PreviDent 5000 Dry Mouth) 1 applic dental DIRECTED aspirin 81 mg tablet,delayed release (Adult Low Dose Aspirin) 81 mg PO PM allopurinol 300 mg tablet 300 mg PO QAM atorvastatin 10 mg tablet 10 mg PO QAM amlodipine 5 mg tablet 5 mg PO QAM hydrochlorothiazide 25 mg tablet 25 mg PO QAM lisinopril 40 mg tablet 40 mg PO QAM pregabalin 75 mg capsule (Lyrica) 75 mg PO TID potassium citrate 10 mEq (1,080 mg) tablet,extended release 10 meq PO QAM tramadol 50 mg tablet 50 mg PO TID PRN Pain meloxicam 7.5 mg tablet 7.5 mg PO QAM PRN Left shoulder pain MEDICATION INSTRUCTIONS: Continue as directed fluoride (sodium) 1.1 % dental paste (PreviDent 5000 Dry Mouth) 1 applic dental DIRECTED (do not use AM of surgery) dorzolamide 22.3 mg-timolol 6.8 mg/mL eye drops 1 drp OPB BID ASK your surgeon for instructions meloxicam 7.5 mg tablet 7.5 mg PO QAM PRN Left shoulder pain ASK your prescriber and surgeon aspirin 81 mg tablet,delayed release (Adult Low Dose Aspirin) 81 mg PO PM DO NOT take the morning of surgery potassium citrate 10 mEq (1,080 mg) tablet,extended release 10 meq PO QAM hydrochlorothiazide 25 mg tablet 25 mg PO QAM vitamin B complex 1 tab PO DAILY multivitamin 1 tab PO DAILY lisinopril 40 mg tablet 40 mg PO QAM Take morning of surgery With a small sip of water, OTHERWISE NOTHING TO EAT OR DRINK AFTER MIDNIGHT: acetaminophen 500 mg tablet 1,000 mg PO TID PRN Pain, Mild allopurinol 300 mg tablet 300 mg PO QAM atorvastatin 10 mg tablet 10 mg PO QAM amlodipine 5 mg tablet 5 mg PO QAM pregabalin 75 mg capsule (Lyrica) 75 mg PO TID tramadol 50 mg tablet 50 mg PO TID PRN Pain Take evening before surgery acetaminophen 500 mg tablet 1,000 mg PO TID PRN Pain, Mild pregabalin 75 mg capsule (Lyrica) 75 mg PO TID tramadol 50 mg tablet 50 mg PO TID PRN Pain Other Notes If you have any questions please call us at [phone] or [phone] or [phone] or [phone]
--- NOTE | 2024-03-02 12:09 | Anesthesiology Consultation ---
Date of Service March 02, 2024 Assessment & Plan (1) Encounter for pre-operative examination: - Infectious disease screening: Per assessment on 03/02/24- No known recent infectious disease contacts or current infectious disease symptoms. - Outpatient joint assessment: Pt currently scheduled for inpatient pathway. If surgeon requests review for outpatient joint pathway, patient is not recommended candidate for outpatient joint program from anesthesia standpoint based on available information. - Previous anesthesia experience: Per 2020 anesthesia consult prior to Left CATHY, "Per 2011 anesthesia record, [address] epidural. Ultimately had GA. Patient recalls very painful experience with attempted epidural placement, and would prefer to have general anesthesia for CATHY." > Left CATHY was done 06/01/20 at [facility] under GA. - Awaiting surgeon-ordered PCP (WILLIAMG, appt 1/2) and cardiology (WILLIAMG, appt 1/3) preop evaluations. Patient otherwise acceptable risk for surgery. Chart Review Chart Review: Patient seen in Pre Admission Testing Teaching & Discussion Pre-Anesthesia Teaching/Discussion Notes: Instructed NPO after midnight before surgery,except medications with 15 cc of water. Medication instructions provided according to the PAT guidelines. History Surgery Operation Date: 04/08/24 07:00 Proposed Procedures p Right Total Hip Arthroplasty - Herrera Garza MD Height/Weight Height: 6 ft 3 in Weight: 144.5 kg Allergies Allergy/AdvReac Type Severity Reaction Status Date / Time benzalkonium chloride AdvReac Intermediate Redness Verified 03/02/24 11:36 bimatoprost AdvReac Intermediate Redness Verified 03/02/24 11:36 oxycodone AdvReac Mild N/V Verified 02/20/24 10:18 Medications Home Medications Medication Instructions Recorded Confirmed Last Taken acetaminophen 500 mg tablet 1,000 mg PO TID PRN Pain, Mild #90 10/16/18 02/20/24 05/31/20 22:00 tabs dorzolamide 22.3 mg-timolol 6.8 1 drp OPB BID 04/21/20 02/20/24 04/12/23 07:30 mg/mL eye drops vitamin B complex 1 tab PO DAILY 03/24/21 02/20/24 04/10/23 multivitamin 1 tab PO DAILY 01/08/22 02/20/24 04/10/23 fluoride (sodium) 1.1 % dental 1 applic dental DIRECTED 01/26/23 02/20/24 04/11/23 paste (PreviDent 5000 Dry Mouth) aspirin 81 mg tablet,delayed 81 mg PO PM 04/08/23 02/20/24 04/10/23 release (Adult Low Dose Aspirin) allopurinol 300 mg tablet 300 mg PO QAM #90 tabs 06/26/23 02/20/24 Unknown atorvastatin 10 mg tablet 10 mg PO QAM #90 tabs 07/04/23 02/20/24 Unknown amlodipine 5 mg tablet 5 mg PO QAM #90 tabs 08/08/23 02/20/24 Unknown hydrochlorothiazide 25 mg tablet 25 mg PO QAM #90 tabs 08/21/23 02/20/24 Unknown lisinopril 40 mg tablet 40 mg PO QAM #90 tabs 09/23/23 02/20/24 Unknown pregabalin 75 mg capsule (Lyrica) 75 mg PO TID #240 caps 11/12/23 02/20/24 Unknown potassium citrate 10 mEq (1,080 10 meq PO QAM #100 tabs 01/14/24 02/20/24 Unknown mg) tablet,extended release tramadol 50 mg tablet 50 mg PO TID PRN Pain #30 tabs 01/27/24 02/20/24 Unknown meloxicam 7.5 mg tablet 7.5 mg PO QAM PRN Left shoulder 02/20/24 02/20/24 Unknown pain Past Medical History Medical History Aortic root dilation Atrial fibrillation Watchman device implanted [facility] Degenerative joint disease of left hip Dyslipidemia Glaucoma History of prostate cancer 2001, s/p brachytherapy Hx of atrial flutter s/p ablation 2018 Follows with [facility] cardio Hx of gout Hypertension Kidney stone Hx Lumbar radiculopathy Lumbar spinal stenosis Obesity (BMI 30-39.9) Peripheral neuropathy Presence of Watchman left atrial appendage [place] [place] Ventricular quadrigeminy Exercise / Class Metabolic Activity II 4-5 Yardwork/Stairs/Walk up hill (one FS: No CP, no SOB) Past Family History Family History Unknown No problems noted. Mother Lung cancer Hypertension Father Cancer Heart disease Hypertension Daughter Hypothyroidism Sister Hypothyroidism Other No family history of adverse response to anesthesia Denies family history of Ovarian cancer Prostate cancer Breast cancer Colorectal cancer Past Surgical History Surgical History H/O eye surgery Corneal scraping of right eye History of anesthesia reaction (2011) Per 2020 anesthesia consult prior to Left CATHY, "Per 2011 anesthesia record, [address] epidural. Ultimately had GA. Patient recalls very painful experience with attempted epidural placement, and would prefer to have general anesthesia for CATHY." > Left CATHY was done 06/01/20 at [facility] under GA. History of arthroscopy of left knee x2 History of arthroscopy of right knee x2 History of cardiac radiofrequency ablation 2019 History of carpal tunnel release bilateral History of cataract surgery bilateral History of colonoscopy History of cystoscopy R/t bladder neck scarring History of herniorrhaphy Right inguinal History of left hip replacement (~05/2020) History of postoperative nausea and vomiting History of repair of rotator cuff RIGHT History of total knee replacement BILATERAL Hx of cystoscopy w/urethrotomy Hx of elbow surgery cubital tunnel release right elbow Hx of transurethral resection of prostate S/P trigger finger release bilateral hands Status post implantation of artificial urinary sphincter Past Anesthesia History No Family Hx of Anesthesia Complications and Other * Per 2020 anesthesia consult prior to Left CATHY, "Per 2011 anesthesia record, [address] epidural. Ultimately had GA. Patient recalls very painful experience with attempted epidural placement, and would prefer to have general anesthesia for CATHY." > Left CATHY was done 06/01/20 at [facility] under GA. * "Slow to wake" History of PONV No Hx of Motion Sickness and History of PONV (Improved when antiemetics used preventatively ) Social History Smoking Status: Never smoker Do You Dip or Chew Tobacco: No Hx Alcohol Use: Yes Alcohol type: wine alcohol intake frequency: a few times a month Hx Substance Use: No substance use type: does not use Review of Systems Patient denies chest pain, shortness of breath, dyspnea on exertion, fever, chills, cough, wheezing, palpitations. Physical Exam Vital Signs BP 149/87 P 60 TEMP 98.1 SP02 97%RA RESP 16 Physical Full cervical extension range of motion. Full TMJ range of motion. TMD > 3.5 finger breaths Mallampati Score I Dentition: upper partial Lungs: clear throughout to auscultation Cardiac: regular rate and rhythm, no murmurs noted Spine: normal Carotid arteries: negative bruit Extremities: no LE edema Lab Results Anesthesia Preop Results Results Anesthesia Widget: WBC 7.21 K/ul (4.8-10.8) 03/02/24 Hgb 16.9 g/dl (14.0-18.0) 03/02/24 Hct 48.3 % (42.0-52.0) 03/02/24 Plt 207 K/uL (130-400) 03/02/24 Na 140 mmol/L (136-145) 03/02/24 K 3.7 mmol/L (3.5-5.1) 03/02/24 Cl 104 mmol/L (98-107) 03/02/24 CO2 30 mmol/L (21-32) 03/02/24 BUN 19 mg/dl (6-23) 03/02/24 Creat 0.76 mg/dl (0.6-1.4) 03/02/24 Glucose Level 96 mg/dl (70-99(Fasting)) 03/02/24 PT 11.1 Seconds (9.0-12.0) 03/02/24 PTT 27 Seconds (21-31) 03/02/24 INR 1.0 (0.9-1.1) 03/02/24 HA1c 5.2 % (4.5-5.6) 03/02/24 Urine Color Yellow 03/02/24 Urine Appearance Clear (Clear) 03/02/24 Urine pH 6.5 (4.5-7.5) 03/02/24 Urine Specific [place] 1.015 (1.000-1.030) 03/02/24 Urine Protein Negative (Negative) 03/02/24 Urine Glucose (UA) Negative (Negative) 03/02/24 Urine Ketones Negative (Negative) 03/02/24 Urine Blood Negative (Negative) 03/02/24 Urine Nitrite Negative (Negative) 03/02/24 Urine Bilirubin Negative (Negative) 03/02/24 Urine Urobilinogen Negative (Negative) 03/02/24 Urine Leukocyte Esterase Negative (Negative) 03/02/24 Blood Type O Negative 03/02/24 Antibody Screen NEGATIVE 03/02/24 Testing Laboratory Results Urine culture (03/02/24): no growth Electrocardiogram Date: 03/02/24 SR with first degree AVB with PVCs at 63bpm. NS STA. Chest X-Ray Date: 03/02/24 FINDINGS: Pulmonary Parenchyma: Lungs are clear bilaterally. No evidence of consolidation, collapse, or focal opacities. Calcified nodule seen at the right mid lung zone measuring 13 mm. No evidence of pleural effusion or pleural thickening. Heart and Mediastinum: Heart size and shape are normal. Ectatic aorta seen. No mediastinal widening or masses. No hilar or mediastinal lymphadenopathy. Bony Thorax: Thoracic spine spondylotic changes seen. Soft tissues overlying the chest wall are unremarkable. IMPRESSION: Calcified nodule seen at the right mid lung zone. Echocardiogram Date: 01/28/23 EF 60-65%. Severe concentric LVH. Mild RVD. All RV systolic function is normal. Mild to moderate MR. Mild LAD. Mild aortic root dilatation. Aortic root diameter of 3.6 cm is unchanged compared to 04/06/2022 study per report. Limited study.
--- NOTE | 2024-04-08 05:22 | History & Physical Bridge Note ---
Date of Service April 08, 2024 History & Physical Bridge Note I have examined the patient, reviewed the History & Physical and in the interval since the performance of the History & Physical I have noted the following changes of clinical significance: no changes noted
[2024-04-08] MEDS: LR 500ML BOLUS, THEN 15ML/HR IV SCH (06:07)
[2024-04-08] MEDS: LR 60ML/HR IV SCH (06:07)
[2024-04-08] MEDS ORDERED: BUPIVACAINE 0.5 % 5 MG/1 ML PF 10ML VIAL ONE (06:25)
[2024-04-08] MEDS ORDERED: ONDANSETRON INJ 2 MG/ML 2 ML VIAL ONE (06:38)
[2024-04-08] MEDS ORDERED: PROPOFOL IV EMULSION 10 MG/ML 20 ML VIAL IV ONE ×4 (06:38→08:14)
[2024-04-08] MEDS ORDERED: MIDAZOLAM HCL 1 MG/ML 2ML VIAL ONE (06:38)
[2024-04-08] MEDS ORDERED: DEXAMETHASONE SOD INJ 4 MG/ML VIAL ONE (06:38)
[2024-04-08] MEDS ORDERED: fentaNYL citrate PF 100 MCG/2 ML VIAL ONE (06:38)
[2024-04-08] MEDS ORDERED: ePHEDrine sulfate 50 MG/5 ML SYR ONE ×3 (06:44→08:29)
[2024-04-08] MEDS ORDERED: LIDOCAINE 2% 2 ML VIAL/AMP(20MG/ML) INFIL ONE (06:52)
[2024-04-08] MEDS ORDERED: ROCURONIUM BROMIDE 10 MG/ML 5 ML VIAL IV ONE ×2 (06:53→07:18)
[2024-04-08] MEDS: ceFAZolin 3000MG 3,000 MG/72.5 ML BAG IV SCH (06:58)
[2024-04-08] MEDS ORDERED: SUGAMMADEX SODIUM 200 MG/2 ML VIAL IV ONE (07:27)
[2024-04-08] MEDS ORDERED: HYDROmorphone INJ 2 MG/ML SYR/VIAL IV PRN (07:30)
[2024-04-08] MEDS ORDERED: ATROPINE SULFATE 0.1 MG/ML 10ML SYR IV PRN (07:30)
[2024-04-08] MEDS ORDERED: ePHEDrine sulfate 50 MG/ML AMP IV PRN (07:30)
[2024-04-08] MEDS ORDERED: PROMETHAZINE HCL 6.25 MG in SODIUM CHLORIDE 0.9% 50 ML IV PRN (07:30)
[2024-04-08] MEDS: ROPIVACAINE 0.5% HCL/PF 246 MG, Ketorolac (*for OR use only*) 30 MG, EPINEPHrine 30MG/3... INFIL SCH (07:31)
[2024-04-08] MEDS ORDERED: PHENYLEPHRINE 100MCG/ML 5ML SYR ONE (07:51)
[2024-04-08] MEDS ORDERED: MoRPHine SULFATE 2 MG/ML CARP ONE (07:56)
[2024-04-08] MEDS: TRANEXAMIC ACID 1,000 MG **IV Pre-op IV SCH (08:32)
[2024-04-08] MEDS ORDERED: HYDROmorphone INJ 2 MG/ML SYR/VIAL ONE (08:49)
[2024-04-08] MEDS ORDERED: SODIUM CHLORIDE 0.9% PF INJ 10 ML VIAL ONE (08:50)
--- NOTE | 2024-04-08 08:56 | Post Operative Brief Note ---
Immediate Post Op Note Date of Surgery April 08, 2024 Pre & Post Diagnosis Operation Date: 04/08/24 07:00 Pre-Op Diagnosis: Right Hip Osteoarthritis Post-Op Diagnosis: Right Hip Osteoarthritis I identified the patient and participated in the time-out.: Yes Procedure Operation Date: 04/08/24 07:00 Actual Procedures p Right Total Hip Arthroplasty(Right) - Herrera Garza MD Surgeon Herrera Garza MD Internal Audit Consultant Joyce/Fracisco Estimated Blood Loss 200 Findings Consistent with Post-Op Diagnosis Severe osteoarthritis with marked overgrowth of the femoral head significant contracture posterior structures capsule Fluids See anesthesia report Complications None
--- NOTE | 2024-04-08 09:01 | Operative Report ---
Post Operative Report Pre & Post Diagnosis Operation Date: 04/08/24 07:00 Pre-Op Diagnosis: Right Hip Osteoarthritis Post-Op Diagnosis: Right Hip Osteoarthritis I identified the patient and participated in the time-out.: Yes Procedure Operation Date: 04/08/24 07:00 Actual Procedures p Right Total Hip Arthroplasty(Right) - Herrera Garza MD Surgeon Herrera Garza MD Sole Trimmer Joyce/Fracisco Estimated Blood Loss 200 Findings Consistent with Post-Op Diagnosis Severe osteoarthritis with coxa magna significant contracture posterior structures Fluids See anesthesia Specimens Bone pathology Drains None Complications None Indications End-stage disease by x-ray severe pain failed conservative management Description of Procedure After the patient was appropriate notified site verified consent verified antibiotics confirmed as being given leg lengths were measured to slightly long on the uninvolved side. Leg markers appropriately placed. He was then carefully placed in the left lateral decubitus position everything padded appropriately and the right lower extremity prepped and draped use routine fashion. A posterior approach the hip was then carried out. He is quite large. Appropriate incision made. Full-thickness flaps raised. IT band and gluteus sravani fascia then open. The posterior structures were all scarred and thickened. Performance was identified appropriate tract replacement. Inferiorly. These were then released. The capsule was then teed. There was marked mucoid degenerative cystic changes in the capsule. This was all released. The hip was then dislocated. Femoral neck was then cut. It was cut to be as close to the lesser trochanter as possible to try to get the leg lengths equal. There was a lot of soft tissue left on the head of the globe at a time to get it out but it was removed without the without creating any other additional pathology. Acetabulum was then exposed with appropriate retractors remaining remnants of the labrum were excised the capsule released around the osteophytes resected. Serial reaming carried up to a 58 and a 58 cup impacted into position and secured with an additional 6.5 x 25 screw with excellent purchase. Osteophytes removed around the margin and the permanent liner seated. Femur was then flexed and internally rotated appropriate retractors placed care taken protect the sciatic nerve. The proximal femur was then prepared with a journal box inspector canal finder lateralizing rasp and serial broaching up to a size 5. Trial reduction with a +5 head was excellent. The remaining trial elements were then removed the wound was then irrigated with Pulsavac soaked in Betadine and the whole limb later seated permanent liner was previously seated. The permanent stem was then seated with a 5 high offset stem. The head was a 28+5 ceramic head and the bipolar was a 49/28. The dome cover was a 58/49. Reduction was then carried out it was stable in all planes leg lengths were excellent. The wound was then irrigated with Betadine Pulsavac. Capsule still contracted they could not be closed with short external rotators were closed the IT band was then closed all of this was done with #2 Vicryl deep fat was closed with #2 Vicryl superficial fat was closed with 2-0 Vicryl standstill approximated with clips and the retention sutures placed. 40 cc of Ortho mix was injected about the superficial incision. Leg lengths were noted to be equal. Summary of implants size 58 acetabular shell sector cup 25 x 6.5 screw dome, 58/49 5 high offset stem bipolar 49/28 ceramic head 28+5 these are all DePuy ACT I-S/[place] hip system. EBL was roughly 200 cc overestimating it. Crystalloid per anesthesia bone pathology pending DVT prophylaxis to begin tomorrow. Per protocol. I attest to the content of the Intraoperative Record and any orders documented therein. Any exceptions are noted below.
--- NOTE | 2024-04-08 09:06 | Discharge Summary ---
Date of Service April 08, 2024 Admission HPI Per Admitting Provider End-stage osteoarthritis right hip with end-stage disease by physical exam treatment plan and x-rays. Principal Diagnosis Osteoarthritis right hip Discharge Data Allergies Allergy/AdvReac Type Severity Reaction Status Date / Time benzalkonium chloride AdvReac Intermediate Redness Verified 04/08/24 05:42 bimatoprost AdvReac Intermediate Redness Verified 04/08/24 05:42 oxycodone AdvReac Mild N/V Verified 04/08/24 05:42 Vaccinations None Consultations None Procedures Performed Operation Date: 04/08/24 07:00 Actual Procedures p Right Total Hip Arthroplasty(Right) - Herrera Garza MD Ordered Studies X-rays bone pathology Hospital Course (1) Status post right hip replacement: Total Time Total Time Spent Total Time Spent (In Minutes): 5 Discharge Plan Patient Discharge Instructions Prescriptions: No Action allopurinol 300 mg tablet 300 mg PO QAM Qty: 90 3RF Rx Instructions: TAKE 1 TABLET EVERY MORNING atorvastatin 10 mg tablet 10 mg PO QAM Qty: 90 3RF amlodipine 5 mg tablet 5 mg PO QAM Qty: 90 3RF hydrochlorothiazide 25 mg tablet 25 mg PO QAM Qty: 90 3RF lisinopril 40 mg tablet 40 mg PO QAM Qty: 90 3RF pregabalin [Lyrica] 75 mg capsule 75 mg PO TID Qty: 240 1RF potassium citrate 10 mEq (1,080 mg) tablet extended release 10 meq PO QAM Qty: 100 3RF Rx Instructions: dispensed in packs of 100 per pharmacy. changed to 100 and 3 refills tramadol 50 mg tablet 50 mg PO TID PRN (Reason: Pain) Qty: 30 1RF Patient Comments: maybe 2-3 times per month acetaminophen 500 mg tablet 1,000 mg PO TID PRN (Reason: Pain, Mild) Qty: 90 vitamin B complex Tablet 1 tab PO DAILY multivitamin Tablet 1 tab PO DAILY dorzolamide-timolol 22.3-6.8 mg/mL Drops 1 drp OPB BID aspirin [Adult Low Dose Aspirin] 81 mg tablet,delayed release (DR/EC) 81 mg PO PM fluoride (sodium) [PreviDent 5000 Dry Mouth] 1.1 % paste 1 applic dental DIRECTED meloxicam 7.5 mg tablet 7.5 mg PO QAM PRN (Reason: Left shoulder pain) Discharge Diagnosis: Same Provider Inst Below Should Contain: Activity - Diet - Non Emergency Contact - Reasons to Call Contact & Any Pending Studies Provider Instructions: DIET: * Resume previous diet. MEDICATIONS: * Please take your prescriptions as instructed at your pre-op appointment and/or see medication discharge instructions listed above. * If concerns develop, call your physician's office at . SPECIAL CARE INSTRUCTIONS: * Ice/Elevate as instructed. * Keep dressing clean, dry, intact. * Your surgical extremity may be discolored due to prepping agents used on the skin. A bluish-green tint is a normal variant and should not cause alarm. Call your doctor at [phone] if: * Temperature above 101 degrees * Pain not relieved by pain medicine ordered * There is increased drainage or redness from any incision * You have any unanswered questions, problems or concerns. FOLLOW UP VISIT: * If not already scheduled, please call the office at to schedule a follow-up appointment. Follow-Up / Referrals: Alpesh Hammond DO [Primary Care Provider] - Hip Injury/Condition Status post hip replacement for osteoarthritis
--- NOTE | 2024-04-08 09:07 | Orthopedic Progress Note ---
Date of Service April 08, 2024 Orthopedic Progress Note Patient tolerated right total replacement. Vital signs stable. Denies chest pain shortness reviewed with chills nausea minor headache. X-rays pending. Family contacted.
--- NOTE | 2024-04-08 09:07 | Discharge Summary ---
Date of Service April 08, 2024 Admission HPI Per Admitting Provider End-stage osteoarthritis right hip with end-stage disease by physical exam treatment plan and x-rays. Principal Diagnosis Osteoarthritis right hip Discharge Data Allergies Allergy/AdvReac Type Severity Reaction Status Date / Time benzalkonium chloride AdvReac Intermediate Redness Verified 04/08/24 05:42 bimatoprost AdvReac Intermediate Redness Verified 04/08/24 05:42 oxycodone AdvReac Mild N/V Verified 04/08/24 05:42 Consultations None Procedures Performed Operation Date: 04/08/24 07:00 Actual Procedures p Right Total Hip Arthroplasty(Right) - Herrera Garza MD Ordered Studies X-rays bone pathology Hospital Course (1) Status post right hip replacement: Plan CATHY care plan Total Time Total Time Spent Total Time Spent (In Minutes): 5 Discharge Plan Discharge Items Patient Disposition: Home - Self-Care Reason For Visit: Right Hip Osteoarthritis Discharge Diagnosis: Same Condition on Discharge: Good Activity: Per Instructions section Lifting: Wait until after follow-up appointment Bathing: Keep incision dry Sexual Activity: Wait until after follow-up appointment Exercise/Sports: Wait until after follow-up appointment Driving/Machine Use: no driving x 6 weeks Weightbearing: Right weightbearing Weightbearing Comment: as tolerated Non-emergency contact: Surgeon Call non-emergency contact if: your temperature is above 101.5, your wound has increased redness, your wound has increased drainage and your wound pain has increased Follow-up/Referrals: Alpesh Hammond, DO [Primary Care Provider] - Diet Comment: resume previous diet Addtl Attending Provider Instructions: DIET: * Resume previous diet. MEDICATIONS: * Please take your prescriptions as instructed at your pre-op appointment and/or see medication discharge instructions listed above. * If concerns develop, call your physician's office at . SPECIAL CARE INSTRUCTIONS: * Ice/Elevate as instructed. * Keep dressing clean, dry, intact. * Your surgical extremity may be discolored due to prepping agents used on the skin. A bluish-green tint is a normal variant and should not cause alarm. Call your doctor at [phone] if: * Temperature above 101 degrees * Pain not relieved by pain medicine ordered * There is increased drainage or redness from any incision * You have any unanswered questions, problems or concerns. FOLLOW UP VISIT: * If not already scheduled, please call the office at to schedule a follow-up appointment. Pending Studies at Discharge: Yes (bone pathology) Stand-Alone Forms: [facility], Smoking Cessation Medications and DC Order Prescriptions: No Action allopurinol 300 mg tablet 300 mg PO QAM Qty: 90 3RF Rx Instructions: TAKE 1 TABLET EVERY MORNING atorvastatin 10 mg tablet 10 mg PO QAM Qty: 90 3RF amlodipine 5 mg tablet 5 mg PO QAM Qty: 90 3RF hydrochlorothiazide 25 mg tablet 25 mg PO QAM Qty: 90 3RF lisinopril 40 mg tablet 40 mg PO QAM Qty: 90 3RF pregabalin [Lyrica] 75 mg capsule 75 mg PO TID Qty: 240 1RF potassium citrate 10 mEq (1,080 mg) tablet extended release 10 meq PO QAM Qty: 100 3RF Rx Instructions: dispensed in packs of 100 per pharmacy. changed to 100 and 3 refills tramadol 50 mg tablet 50 mg PO TID PRN (Reason: Pain) Qty: 30 1RF Patient Comments: maybe 2-3 times per month acetaminophen 500 mg tablet 1,000 mg PO TID PRN (Reason: Pain, Mild) Qty: 90 vitamin B complex Tablet 1 tab PO DAILY multivitamin Tablet 1 tab PO DAILY dorzolamide-timolol 22.3-6.8 mg/mL Drops 1 drp OPB BID aspirin [Adult Low Dose Aspirin] 81 mg tablet,delayed release (DR/EC) 81 mg PO PM fluoride (sodium) [PreviDent 5000 Dry Mouth] 1.1 % paste 1 applic dental DIRECTED meloxicam 7.5 mg tablet 7.5 mg PO QAM PRN (Reason: Left shoulder pain) Discharge Orders: Discharge Order (Routine); Ordered 04/09/24 Ordered By: Herrera Garza Admission Data Admit Date/Time: 04/08/24 09:20 Attending Provider: Herrera Garza Admit Provider: Herrera Garza Primary Care Provider: Alpesh Hammond Other Providers: [facility],Referral Center; [facility]
--- NOTE | 2024-04-08 09:15 | Operative Report ---
Post Operative Report Pre & Post Diagnosis Operation Date: 04/08/24 07:00 Pre-Op Diagnosis: Right Hip Osteoarthritis Post-Op Diagnosis: Right Hip Osteoarthritis I identified the patient and participated in the time-out.: Yes Procedure Operation Date: 04/08/24 07:00 Actual Procedures p Right Total Hip Arthroplasty(Right) - Herrera Garza MD Surgeon Herrera Garza MD Human Resources Temp Joyce/Fracisco Estimated Blood Loss 200 Findings Consistent with Post-Op Diagnosis Specimens Right femoral head Description of Procedure Patient was brought to the operative suite where he underwent anesthesia. He was placed in left lateral decubitus position. The right lower extremity was prepped and draped in the usual sterile fashion. A surgical timeout was performed. Patient underwent a right total hip arthroplasty, please see Dr. Garza's operative report for full details. I was present and assisted with patient positioning, limb positioning, soft tissue retraction, hemostasis, hardware placement, wound closure, postoperative dressing placement. The patient was awakened and taken to the recovery room in stable condition. I attest to the content of the Intraoperative Record and any orders documented therein. Any exceptions are noted below.
[2024-04-08] MEDS: fentaNYL citrate PF 100 MCG/2 ML VIAL IV PRN (09:23)
[2024-04-08] MEDS: ONDANSETRON INJ 2 MG/ML 2 ML VIAL IV PRN (09:56)
--- NOTE | 2024-04-08 10:24 | Anesthesiology Progress Note ---
Date of Service April 08, 2024 Anesthesia Post Procedure Vital Signs Vital Signs: Temp Pulse Resp BP Pulse Ox O2 Del Method O2 Flow Rate 04/08/24 10:15 65 12 166/96 H 97 Nasal Cannula 3 04/08/24 10:00 77 18 158/91 H 98 Nasal Cannula 3 04/08/24 09:50 36.5 C 68 14 176/83 H 95 Nasal Cannula 3 04/08/24 09:40 72 13 169/94 H 95 Nasal Cannula 2 04/08/24 09:30 72 12 171/80 H 97 Oxymask 7 04/08/24 09:20 79 15 136/69 96 Oxymask 7 04/08/24 09:12 36.6 C 81 15 157/84 H 95 Oxymask 7 04/08/24 05:46 36.6 C 66 18 179/93 H 96 Room Air Pain Intensity Right Hip: Pain Intensity: 4 Transfer of Care Handoff Completed per policy Notes Mental Status: alert / awake / arousable and participated in evaluation Patient Amnestic to Procedure: Yes Nausea / Vomiting: adequately controlled Pain: adequately controlled Airway Patency, RR, SpO2: stable & adequate BP & HR: stable & adequate Hydration State: stable & adequate Anesthetic Complications: no major complications apparent
[2024-04-08] MEDS ORDERED: ALUMINUM/MAGNESIUM SUSP 30 ML UDC PO PRN (10:48)
[2024-04-08] MEDS ORDERED: TAMSULOSIN HCL 0.4 MG CAP PO PRN (10:48)
[2024-04-08] MEDS ORDERED: MAGNESIUM HYDROXIDE SUSP 30 ML UDC PO PRN (10:48)
[2024-04-08] MEDS ORDERED: ONDANSETRON INJ 2 MG/ML 2 ML VIAL IV PRN (10:48)
[2024-04-08] MEDS ORDERED: NALOXONE HCL 0.4 MG/1 ML VIAL/CARP IV PRN (10:48)
[2024-04-08] MEDS ORDERED: bisacodyL 10 MG SUPP PR PRN (10:48)
[2024-04-08] MEDS ORDERED: VANCOMYCIN CONSULT ACTIVE PRN (10:48)
[2024-04-08] MEDS ORDERED: HYDROmorphone INJ 0.5 MG/0.5 ML SYR IV PRN (10:48)
[2024-04-08] MEDS ORDERED: diphenhydrAMINE 50 MG/ML VIAL IV PRN (10:48)
[2024-04-08] MEDS: ORTHO JOINT ANESTHETIC ONE (10:49)
[2024-04-08] MEDS: TRANEXAMIC ACID 1,000 MG **IV Intra-op IV SCH (10:50)
[2024-04-08] MEDS: METOCLOPRAMIDE HCL INJ 5 MG/ML 2 ML VIAL IV PRN (11:05)
[2024-04-08] MEDS: KETOROLAC TROMETHAMINE 15 MG/ML VIAL IV SCH (11:06)
--- NOTE | 2024-04-08 11:07 | XRay Report ---
XR pelvis 1-2V routine CLINICAL HISTORY: S/P R CATHY 1 view only AP pelvis centered on hips COMPARISON: Right hip radiograph November 25, 2023. FINDINGS: Alignment of the total right hip arthroplasty is anatomic. There is no periprosthetic frac ture or unexpected radiopaque foreign body. There are skin veda. Left hip arthroplasty and brachyt herapy seeds within the prostate are again noted. IMPRESSION: Expected findings following total right hip arthroplasty. ACT 112: Negative or not required by law. Electronically signed by: Frantz Andrew M.D. 04/08/2024 11:05 AM
--- NOTE | 2024-04-08 11:24 | Operative Report ---
Post Operative Report Pre & Post Diagnosis Operation Date: 04/08/24 07:00 Pre-Op Diagnosis: Right Hip Osteoarthritis Post-Op Diagnosis: Right Hip Osteoarthritis I identified the patient and participated in the time-out.: Yes Procedure Operation Date: 04/08/24 07:00 Actual Procedures p Right Total Hip Arthroplasty(Right) - Herrera Garza MD Surgeon RAFIQ Garza MD Business Development Professional Joyce/Fracisco PAC Estimated Blood Loss 200 Findings Consistent with Post-Op Diagnosis see operative report Specimens see operative report Drains none Complications none Disposition Accompanied Patient To Recovery: Yes Indications This 73 year old male presented to the office with complaints of persisting right hip pain. He had tried conservative care measures without improvement. He elected to proceed with total hip arthroplasty in hopes of improving his pain and function. Preoperative imaging was obtained. He has a history of previous left total hip arthroplasty and has done well with it. He elects to proceed with the same on the right. Description of Procedure The patient was administered a regional anesthetic and then taken to the o perating room where he was given general anesthesia. He was prepped and draped in the usual sterile fashion. Please see Dr. Garza's operative report for specifics of the procedure. I was present for the entire case from initial patient positioning through final wound closure. Assistance was provided in tissue retraction, hemostasis, trial implant placement, final implant placement, and final wound closure. The patient was taken to the recovery room in satisfactory condition. I attest to the content of the Intraoperative Record and any orders documented therein. Any exceptions are noted below.
[2024-04-08] MEDS: VANCOMYCIN HCL 2,000 MG in SODIUM CHLORIDE 0.9% 500 ML IV ONE (11:55)
[2024-04-08] MEDS: traMADol HCL 50 MG TABLET PO PRN (12:16)
[2024-04-08] MEDS: ACETAMINOPHEN 500 MG TAB PO SCH (13:54)
[2024-04-08] MEDS: PREGABALIN 75 MG CAP PO SCH (13:56)
--- NOTE | 2024-04-08 16:38 | Orthopedic Progress Note ---
Date of Service April 08, 2024 Assessment & Plan Admission and Anticipated Discharge Date Admission Date: April 08, 2024 Orthopedic Progress Note Afternoon rounds postop check. Status post right total replacement. Patient sitting up comfortably in bed. States he has been up and ambulated Tory in the room in the hallway and went to the bathroom. Sat up in the chair. He notes he has very minimal discomfort. This has some muscle soreness. Denies chest pain shortness of breath fever chills nausea vomiting or headache. Vital signs are stable he is afebrile. Neurovascular check femoral sciatic nerve is normal wound dressing clean dry and intact. Postop x-rays look excellent. Assessment doing well continue care plan for total hip replacement. Discharge home tomorrow with services. Initiate anticoagulation tomorrow. Saline lock IV.
[2024-04-08] MEDS: ceFAZolin 2000MG 2,000 MG/15 ML SYR IV SCH (17:25)
[2024-04-08] MEDS: FERROUS GLUCONATE 324 MG TAB PO SCH (18:34)
[2024-04-08] MEDS: ASCORBIC ACID 500 MG TAB PO SCH (18:35)
[2024-04-08 19:01] VITALS: RESP 16
[2024-04-08] MEDS: DOCUSATE SODIUM 100 MG CAP PO SCH (20:49)
[2024-04-08] MEDS: ASPIRIN 81 MG ECTAB PO SCH (20:49)
[2024-04-08] MEDS: DORZOLAMIDE/TIMOLOL 22.3/6.8MG/ML 10 ML BTL OPB SCH (20:49)
[2024-04-08] MEDS: SENNA 8.6 MG TAB PO SCH (20:49)
--- NOTE | 2024-04-09 06:36 | Orthopedic Progress Note ---
Date of Service April 09, 2024 Assessment & Plan Admission and Anticipated Discharge Date Admission Date: April 08, 2024 Orthopedic Progress Note Postop day #1 status post right total hip replacement. Patient sitting up in bed denies any chest pain shortness of breath fever chills nausea vomiting headache. He notes that all of his hip pain is gone. This has pain in the incisional area. He is able to bear full weight able to get up and walk around. Denies any numbness or tingling. Vital signs are stable he is afebrile. Neurovascular check femoral sciatic nerve is intact. Hip is located. Wound dressing clean dry and intact. Calves nontender. Assessment status post right total replacement. Plan is for PA to change dressing this morning the morning PT initiated anticoagulation and discharge to home. A.m. labs pending.
[2024-04-09 07:25] VITALS: BP 120/70; PULSE 73; TEMP 98.6; O2SAT 93
[2024-04-09 09:00] LABS: Basophils # (auto) 0.02 K/uL (0.00-0.20); Basophils % (auto) 0.1 %; Hematocrit (blood only) 42.8 % (42.0-52.0); Hemoglobin 14.9 g/dl (14.0-18.0); Immature Granulocytes # (auto) 0.07 K/uL (0.01-0.20); Immature Granulocytes % (auto) 0.5 %; Lymphocytes # (auto) 1.45 K/uL (1.20-3.40); Lymphocytes % (auto) 9.4 %; Mean Corpuscular Hemoglobin 31.5 pg (25.0-34.0); Mean Corpuscular Hgb Conc 34.8 g/dL (32.0-36.0); Mean Corpuscular Volume 90.5 fL (80.0-100.0); Mean Platelet Volume 10.5 fL (9.4-12.4); Monocytes % (auto) 12.9 %; Neutrophils # (auto) 11.95 K/uL (1.40-6.50); Neutrophils % (auto) 77.1 %; Platelet Count 179 K/uL (130-400); RDW Standard Deviation 46.1 fL (36.4-46.3); Red Blood Count 4.73 M/uL (4.70-6.10); White Blood Count 15.49 K/ul (4.8-10.8)
[2024-04-09 09:16] LABS: BUN Creatinine Ratio 27.8 (10-20); Calcium 9.1 mg/dl (8.6-10.3); Creatinine Clr Calc Pharmacy 113.5 ml/min; Potassium 3.7 mmol/L (3.5-5.1)
[2024-04-09] MEDS: ATORVASTATIN 10 MG TAB PO SCH (09:18)
[2024-04-09] MEDS: lisinopril 40 MG TAB PO SCH (09:18)
[2024-04-09] MEDS: APIXABAN 2.5 MG TAB PO SCH (09:18)
[2024-04-09] MEDS: allopurinoL 300 MG TAB PO SCH (09:18)
[2024-04-09] MEDS: POTASSIUM CITRATE 10 MEQ TAB PO SCH (09:18)
[2024-04-09] MEDS: MULTIVITAMIN TAB PO SCH (09:18)
[2024-04-09] MEDS: dexAMETHasone 10 MG in SYRINGE 0 ML IV SCH (09:18)
[2024-04-09] MEDS: hydroCHLOROthiazide 25 MG TAB PO SCH (09:37)
[2024-04-09] MEDS: amLODIPine BESYLATE 5 MG TAB PO SCH (09:37)
--- NOTE | 2024-04-09 09:41 | Orthopedic Progress Note ---
Date of Service April 09, 2024 Assessment & Plan (1) Status post right hip replacement: Plan: The patient was educated regarding today's findings. His postsurgical dressings were removed. Prevena wound VAC was placed. He will leave this in place for 7 days. Follow-up with me on April 16 at 11:30 AM for removal in the office. He has started his Eliquis this morning. Additional prescription for Eliquis 2.5 mg twice daily was sent to his pharmacy. Prescription for hydrocodone has also been sent to his pharmacy per his request. He does not do well with oxycodone. Continue with ice to the hip frequently to reduce pain and swelling. Discharge to home today with home health starting tomorrow. Continue ambulation with his walker. Call with any other concerns. Admission and Anticipated Discharge Date Admission Date: April 08, 2024 Subjective This 73 year old male is seen this morning in his room. He is 1 day status post right total hip arthroplasty. He states he is doing very well. His hip pain has entirely resolved. He states he has incisional pain and muscle pain, but the groin pain is gone. He denies any chest pain, shortness of breath, or abdominal pain. He had nausea through most of the evening and states he vomited 3 times. This has also resolved. No other complaints at this point. He is won dering when he can go home. Review of Systems Review of Systems: Unchanged from yesterday. Physical Exam Physical Exam: General: Well-developed, well-nourished, elderly male, in no acute distress. Sitting in a bedside chair. Alert and oriented. Rises easily from a chair on his own power without assistance. Skin: Warm dry with good turgor. No rashes. No ecchymosis or erythema. Postsurgical dressing is in place on the right hip. Upon removal, veda are in place. Wound edges are well-approximated. No erythema or warmth. No active drainage. There is a mild amount of bloody drainage on his inner dressings. Musculoskeletal: The patient is intact active motion of the right hip for both flexion and extension as well as rotation. He is able to get himself from sitting to standing without assistance. Intact motor function of the ankle as well as the toes. Neurologic: Gross sensation is intact across the right leg by soft touch. Results & Data Vital Signs (Past 12 Hours) Vital Signs Temp Pulse Resp BP Pulse Ox O2 Del Method 04/09/24 07:24 37 C 73 16 120/70 93 Room Air 04/09/24 03:24 36.8 C 72 16 124/72 94 Room Air 04/08/24 22:56 37.6 C H 82 16 136/72 91 Room Air Laboratory Results CBC obtained this morning shows a white count of 15.49. H&H of 14.9 and 42.8. Platelets 179,000. Normal electrolytes. Potassium 3.7. BUN of 25 with creatinine 0.90. Glucose this morning was 128.
== END 2024-04-09 12:00 | disposition home health service (06) | DRG 470 ==
LOC: ASU 05:15 → 3N 09:20